=== PATIENT | male | born 1950 | race Hispanic/Latino ===

== ENCOUNTER 2018-02-08 16:12 | Emergency (ER) | payer OTHER ==
[2018-02-08 16:59] LABS: Absolute Lymphocytes (CBC) 0.8 K/uL (0.7-4.9); Absolute Monocytes 1.5 K/uL (0.1-1.3); Absolute Neutrophil 16.3 K/uL (1.8-8.0); Basophils % 0.3 % (0-1.3); Eosinophils % 0.8 % (0-4.4); Hematocrit 34.2 % (39.6-49.0); MCH 30.3 pg (27.0-35.0); MCV 92.3 fL (80-100); MPV 9.2 fL (7.6-11.3); Monocytes % 8.1 % (3.3-12.3); RBC Red Blood Cell Count 3.71 M/uL (4.33-5.43)
[2018-02-08 17:08] LABS: Potassium 3.3 mEq/L (3.6-5.0)
[2018-02-08] MEDS ORDERED: VANCOMYCIN/NS 1 gm 1 GM/250 ML BAG ONE (17:11)
[2018-02-08] MEDS ORDERED: NA CHLORIDE 0.9% 1,000 ML ONE ×2 (17:11→17:35)
[2018-02-08] MEDS ORDERED: Levofloxacin500mg IV 500 MG/100 ML BAG IV ONE (17:11)
[2018-02-08 17:44] LABS: Blood Morphology Comment NOT SEEN (NOT SEEN); Platelet Estimate ADEQ; Urine White Blood Cell Casts OK
--- NOTE | 2018-02-08 18:13 | ER ---
Nurse's Notes [facility] Name: Zack Godinez Age: 67 yrs Sex: Male : 1950 Arrival Date: 02/08/2018 Time: 16:13 Bed 8 Private MD: Diagnosis: Postoperative and postprocedural complication of skin and subcutaneous tissue Presentation: 02/08 16:18 Presenting complaint: Patient states: I had a hernia repair by Dr Franz at [facility] la1 01/28. I noticed bleeding from the incision site, a bad smell, and some clear looking drainage. Transition of care: patient was not received from another setting of care. Onset of symptoms was February 08, 2018. Care prior to arrival: None. 16:18 Method Of Arrival: Wheelchair la1 16:18 Acuity: COREY 3 la1 Historical: - Allergies: 16:19 Codeine; la1 - Home Meds: 19:48 glipizide-metformin 5-500 mg oral tab three times a day [Active]; benazepril 40 mg oral lp1 tab 1 tab once daily [Active]; furosemide 40 mg Oral tab 1 tab once daily [Active]; clopidogrel 75 mg oral tab 1 tab once daily [Active]; losartan 100 mg oral tab 1 tab once daily [Active]; verapamil 80 mg Oral tab 1 tab 3 times per day [Active]; - PMHx: 16:19 Diabetes - NIDDM; Hypertension; la1 - PSHx: 19:43 Hernia repair; back surgery; Cholecystectomy; Neck surgery; lp1 - Immunization history:: Adult Immunizations up to date. - Social history:: Smoking status: Patient/guardian denies using tobacco. Screenin:29 Abuse screen: Denies threats or abuse. Nutritional screening: No deficits noted. ap3 Tuberculosis screening: No symptoms or risk factors identified. 17:34 Fall Risk No fall in past 12 months (0 pts). No secondary diagnosis (0 pts). IV access ap3 (20 points). Ambulatory Aid- None/Bed Rest/Nurse Assist (0 pts). Gait- Normal/Bed Rest/Wheelchair (0 pts) Mental Status- Oriented to own ability (0 pts). Assessment: 17:29 General: Appears uncomfortable, Behavior is calm, cooperative. Pain: Complains of pain ap3 in right lower quadrant and left lower quadrant. Neuro: Level of Consciousness is awake, alert, obeys commands, Oriented to person, place, time, situation. Cardiovascular: Patient's skin is warm and dry. Respiratory: Airway is patent Respiratory effort is even, unlabored, Respiratory pattern is regular, symmetrical. GI: Abdomen is round distended, surgical wound along lower abdomen. : No signs and/or symptoms were reported regarding the genitourinary system. EENT: No signs and/or symptoms were reported regarding the EENT system. Derm: surgical wound along lower abdomen. Sanguinopurulent drainage noted from the left side of surgical wound. Musculoskeletal: Reports pain in right lower quadrant and left lower quadrant. Injury Description: surgery on January 28, 2018. 18:03 Reassessment: patient states that his mouth is dry. Oral care provided. ap3 19:15 Reassessment: Patient is alert, oriented x 3, equal unlabored respirations, skin lp1 warm/dry/pink. Reassessment: Patient denies pain at this time. Derm: Wound noted Wound is incision site to lower left abdomen, oozing pus-like fluid, redness, edema around site. 19:57 Reassessment: Report given to ARELY Ko at [facility], Patient assigned to Rm 502. lp1 Vital Signs: 16:19 BP 141 / 59; Pulse 100; Resp 16; Temp 100.1(TE); Pulse Ox 100% on R/A; Weight 96.16 kg; la1 Height 5 ft. 6 in. (167.64 cm) (R); 17:29 Temp 99.00; ap3 17:36 BP 126 / 65; Pulse 91; Resp 16 S; Pulse Ox 98% on R/A; ae1 18:09 BP 124 / 61; Pulse 88; Resp 15 S; Temp 98.1(O); ae1 19:00 BP 119 / 67; Pulse 81; Resp 18; Temp 98.2(O); Pulse Ox 99% on R/A; lp1 16:19 Body Mass Index 34.22 (96.16 kg, 167.64 cm) la1 ED Course: 16:13 Patient arrived in ED. as 16:19 Triage completed. la1 16:19 Arm band placed on left wrist. la1 16:21 Fam Gardner, ARELY is Primary Nurse. ae1 16:26 Pina Mark FNP-C is [facility]. snw 16:26 Dieudonne Leiva MD is Attending Physician. snw 16:45 Inserted saline lock: 20 gauge in left antecubital area, using aseptic technique. Blood ap3 collected. 16:50 EKG done, by ED staff, reviewed by Pina GARZA. jb1 16:53 Placed in gown. Bed in low position. Call light in reach. Side rails up X 1. Adult w/ ae1 patient. laboratory monitor on. Pulse ox on. NIBP on. blanket provided. 16:53 Inserted saline lock: 18 gauge in right antecubital area, using aseptic technique. ae1 Blood collected. 19:28 No provider procedures requiring assistance completed. lp1 20:38 Patient transferred, IV remains in place. lp1 Administered Medications: 17:00 Drug: NS 0.9% 1000 ml Route: IV; Rate: 1000 ml; Site: right antecubital; ae1 18:43 Follow up: IV Status: Completed infusion ae1 17:03 Drug: LevaQUIN 500 mg Volume: 100 ml; Route: IVPB; Infused Over: 60 mins; Site: right ae1 antecubital; 18:44 Follow up: IV Status: Completed infusion ae1 17:04 Drug: vancoMYCIN 1 grams Route: IVPB; Infused Over: 2 hrs; Site: right antecubital; ae1 19:29 Follow up: IV Status: Completed infusion lp1 17:25 Drug: NS 0.9% 1000 ml Route: IV; Rate: 1 bolus; Site: right antecubital; ae1 18:43 Follow up: IV Status: Completed infusion ae1 Point of Care Testing: Blood Glucose: 16:49 Blood Glucose: 239 mg/dL; ap3 Ranges: Outcome: 18:12 ER care complete, transfer ordered by . snw 19:27 Condition: stable lp1 19:27 Instructed on the need for transfer. 20:38 Transferred by ground EMS to other acute care facility, Transfer form completed. X-rays lp1 sent w/ patient. 20:39 Patient left the ED. lp1 Addendum: 02/12/2018 19:07 Addendum: Culture Results: Positive urine culture. Phone call Attempt #1 faxed culture i w report to [facility]. Signatures: Rodney Horn1 Pina Mark, [employer]C [employer]-Csnw Johanna Almonte Irene, RN RN iw Neelima Godoy, RN RN lp1 Uriel Parker RN RN la1 Fam Gardner RN RN ae1 Tabby Myers3
--- NOTE | 2018-02-08 18:13 | EDPHYS ---
Physician Documentation [facility] Name: Zack Godinez Age: 67 yrs Sex: Male : 1950 Arrival Date: 02/08/2018 Time: 16:13 Bed 8 Private MD: ED Physician Dieudonne Leiva HPI: 02/08 16:36 This 67 yrs old Male presents to ER via Wheelchair with complaints of Post snw Surgical Bleeding. 16:36 Onset: The symptoms/episode began/occurred suddenly, today. Associated signs and snw symptoms: Pertinent positives: foul odor and purulent dc from surgical site. Modifying factors: The patient symptoms are alleviated by nothing. The patient has not experienced similar symptoms in the past. appt for f/u 02/09/18. Historical: - Allergies: 16:19 Codeine; la1 - Home Meds: 19:48 glipizide-metformin 5-500 mg oral tab three times a day [Active]; benazepril 40 mg oral lp1 tab 1 tab once daily [Active]; furosemide 40 mg Oral tab 1 tab once daily [Active]; clopidogrel 75 mg oral tab 1 tab once daily [Active]; losartan 100 mg oral tab 1 tab once daily [Active]; verapamil 80 mg Oral tab 1 tab 3 times per day [Active]; - PMHx: 16:19 Diabetes - NIDDM; Hypertension; la1 - PSHx: 19:43 Hernia repair; back surgery; Cholecystectomy; Neck surgery; lp1 - Immunization history:: Adult Immunizations up to date. - Social history:: Smoking status: Patient/guardian denies using tobacco. ROS: 16:36 Constitutional: Negative for fever, chills, and weight loss, Eyes: Negative for injury, snw pain, redness, and discharge, ENT: Negative for injury, pain, and discharge, Neck: Negative for injury, pain, and swelling, Cardiovascular: Negative for chest pain, palpitations, and edema, Respiratory: Negative for shortness of breath, cough, wheezing, and pleuritic chest pain, Back: Negative for injury and pain, : Negative for injury, bleeding, discharge, and swelling, MS/Extremity: Negative for injury and deformity, Skin: Negative for injury, rash, and discoloration, Neuro: Negative for headache, weakness, numbness, tingling, and seizure. 16:36 Abdomen/GI: Positive for bleeding from surgical site. Exam: 16:35 Constitutional: This is a well developed, well nourished patient who is awake, alert, snw and in no acute distress. Head/Face: Normocephalic, atraumatic. Eyes: Pupils equal round and reactive to light, extra-ocular motions intact. Lids and lashes normal. Conjunctiva and sclera are non-icteric and not injected. Cornea within normal limits. Periorbital areas with no swelling, redness, or edema. ENT: Nares patent. No nasal discharge, no septal abnormalities noted. Tympanic membranes are normal and external auditory canals are clear. Oropharynx with no redness, swelling, or masses, exudates, or evidence of obstruction, uvula midline. Mucous membranes moist. Neck: Trachea midline, no thyromegaly or masses palpated, and no cervical lymphadenopathy. Supple, full range of motion without nuchal rigidity, or vertebral point tenderness. No Meningismus. Chest/axilla: Normal chest wall appearance and motion. Nontender with no deformity. No lesions are appreciated. 16:35 Respiratory: Lungs have equal breath sounds bilaterally, clear to auscultation and percussion. No rales, rhonchi or wheezes noted. No increased work of breathing, no retractions or nasal flaring. Back: No spinal tenderness. No costovertebral tenderness. Full range of motion. Skin: Warm, dry with normal turgor. Normal color with no rashes, no lesions, and no evidence of cellulitis. MS/ Extremity: Pulses equal, no cyanosis. Neurovascular intact. Full, normal range of motion. Neuro: Awake and alert, GCS 15, oriented to person, place, time, and situation. Cranial nerves II-XII grossly intact. Motor strength 5/5 in all extremities. Sensory grossly intact. Cerebellar exam normal. Normal gait. 16:35 Cardiovascular: Rate: tachycardic, Rhythm: regular. 16:35 Abdomen/GI: Inspection: scar(s), are noted in the transverse lower pelvis incison with erythema and purulent dc, Bowel sounds: diminished, Palpation: abdomen is soft and non-tender. Vital Signs: 16:19 BP 141 / 59; Pulse 100; Resp 16; Temp 100.1(TE); Pulse Ox 100% on R/A; Weight 96.16 kg; la1 Height 5 ft. 6 in. (167.64 cm) (R); 17:29 Temp 99.00; ap3 17:36 BP 126 / 65; Pulse 91; Resp 16 S; Pulse Ox 98% on R/A; ae1 18:09 BP 124 / 61; Pulse 88; Resp 15 S; Temp 98.1(O); ae1 19:00 BP 119 / 67; Pulse 81; Resp 18; Temp 98.2(O); Pulse Ox 99% on R/A; lp1 16:19 Body Mass Index 34.22 (96.16 kg, 167.64 cm) la1 MDM: 16:26 Patient medically screened. snw 18:01 Data reviewed: vital signs, nurses notes. Data interpreted: Pulse oximetry: on room air snw is 98 %. Interpretation: normal. Counseling: I had a detailed discussion with the patient and/or guardian regarding: the historical points, exam findings, and any diagnostic results supporting the discharge/admit diagnosis, lab results, the need to transfer to another facility, continuity of care. Physician consultation:. 18:03 Physician consultation: Dr Mohan was called at 18:03, regarding regarding transfer, snw post op infection. 18:09 Physician consultation: was contacted at 18:09, accepts pt in transfer to [facility]. snw 02/08 16:34 Order name: Basic Metabolic Panel; Complete Time: 17:14 snw 02/08 16:34 Order name: Blood Culture Adult (2) snw 02/08 16:34 Order name: CBC with Diff; Complete Time: 17:55 snw 02/08 16:34 Order name: CPK; Complete Time: 17:14 snw 02/08 16:34 Order name: Lactate; Complete Time: 17:14 snw 02/08 16:34 Order name: Procalcitonin; Complete Time: 17:55 snw 02/08 16:56 Order name: Wound Culture ae1 02/08 17:01 Order name: CBC Smear Scan; Complete Time: 17:55 EDMS 02/08 19:01 Order name: Urine Dipstick--Ancillary (enter results) ms 02/08 19:02 Order name: Urine Dipstick-Ancillary; Complete Time: 19:03 EDMS 02/08 16:34 Order name: Accucheck; Complete Time: 16:52 snw 02/08 16:34 Order name: Cardiac monitoring; Complete Time: 16:52 snw 02/08 16:34 Order name: EKG - Nurse/Tech; Complete Time: 16:52 snw 02/08 16:34 Order name: IV Saline Lock - Large Bore; Complete Time: 16:52 snw 02/08 16:34 Order name: Labs collected and sent; Complete Time: 16:52 snw 02/08 16:34 Order name: O2 Per Protocol; Complete Time: 16:52 snw 02/08 16:34 Order name: O2 Sat Monitoring; Complete Time: 16:53 snw 02/08 16:34 Order name: Urine Dipstick-Ancillary (obtain specimen); Complete Time: 18:43 snw 02/08 16:34 Order name: NPO; Complete Time: 16:44 snw Administered Medications: 17:00 Drug: NS 0.9% 1000 ml Route: IV; Rate: 1000 ml; Site: right antecubital; ae1 18:43 Follow up: IV Status: Completed infusion ae1 17:03 Drug: LevaQUIN 500 mg Volume: 100 ml; Route: IVPB; Infused Over: 60 mins; Site: right ae1 antecubital; 18:44 Follow up: IV Status: Completed infusion ae1 17:04 Drug: vancoMYCIN 1 grams Route: IVPB; Infused Over: 2 hrs; Site: right antecubital; ae1 19:29 Follow up: IV Status: Completed infusion lp1 17:25 Drug: NS 0.9% 1000 ml Route: IV; Rate: 1 bolus; Site: right antecubital; ae1 18:43 Follow up: IV Status: Completed infusion ae1 Point of Care Testing: Blood Glucose: 16:49 Blood Glucose: 239 mg/dL; ap3 Ranges: Critical Glucose Levels:Adult <50 mg/dl or >400 mg/dl <40 mg/dl or >180 mg/dl Disposition: 02/08/18 18:12 Transfer ordered to Other Acute Care Facility. Diagnosis is Postoperative and postprocedural complication of skin and subcutaneous tissue. - Reason for transfer: Higher level of care. - Accepting physician is Dr. Kuo. - Condition is Stable. - Problem is new. - Symptoms have worsened. Addendum: 03/14/2018 19:41 Co-signature as Attending Physician, Dieudonne Leiva MD I agree with the assessment and k dr plan of care. Signatures: Dispatcher [employer] EDDE Dieudonne Leiva MD MD [facility] Pina Mark, SENIOR CLERK-C SENIOR CLERK-Csnw Neelima Godoy, RN RN lp1 Uriel Parker, RN RN la1 Fam Gardner, RN RN ae1 Corrections: (The following items were deleted from the chart) 02/08 20:39 18:12 02/08/2018 18:12 Transfer ordered to Other Acute Care Facility. Diagnosis is lp1 Postoperative and postprocedural complication of skin and subcutaneous tissue. Reason for transfer: Higher level of care. Accepting physician is Dr. Kuo. Condition is Stable. Problem is new. Symptoms have worsened. snw
[2018-02-08 19:02] LABS: Urine Blood NEGATIVE (NEG); Urine Glucose NEGATIVE (NEG); Urine Protein NEGATIVE (NEG)
[2018-02-08 20:55] VITALS: BP 119/67; TEMP 98.2; O2SAT 99
--- NOTE | 2018-02-09 08:49 | EKG ---
Test Date: 2018-02-08 Test Time: 16:45:29 Turbine Inspector: LIZETTE MEASUREMENT RESULTS: Intervals: Rate: 96 TN: 158 QRSD: 94 QT: 350 QTc: 442 [place]: P: 10 TN: 158 QRS: 29 T: 41 INTERPRETIVE STATEMENTS: Normal sinus rhythm Normal ECG Compared to ECG 12/11/2016 04:07:49 No significant changes Electronically Signed On 02-09-18 08:48:28 CDT by Kyler Kenny
== END 2018-02-08 20:39 ==
LOC: ER 16:12
DX: L76.82 Other postprocedural complications of skin and subcutaneous tissue (principal); I10 Essential (primary) hypertension; E11.9 Type 2 diabetes mellitus without complications; Z88.5 Allergy status to narcotic agent
CPT/HCPCS: 36415; 80048; 81003; 82550; 82962; 83605; 84145; 85025; 87040 ×2; 87070; 87077 ×2; 87186 ×2; 87205; 93005; 96361; 96365; 96366; 96368; 99285; J3370; J7030 ×2

== ENCOUNTER 2019-10-06 18:10 | Emergency (ER) | payer OTHER ==
--- OUTSIDE RECORDS SUMMARY | 2019-10-06 18:13 | XMS REPORT ---
:1950 [facility] [address] [place] [address] Care Team Providers Name Role Phone CHRIS AMADOR Primary Care Provider Unavailable ALEXANDRA BELL M.D. Unavailable Unavailable MATT LUONG M.D. Unavailable Unavailable Problems This patient has no known problems. Allergies, Adverse Reactions, Alerts This patient has no known allergies or adverse reactions. Medications This patient has no known medications. Results Test Description Test Time Test Comments Text Results Atomic Results Result Comments POC Glucose, Blood 2018-02-16 19:18:00 Test Item Value Reference Range Comments POC Glucose (test code=POCGLUC) 119 mg/dL 70-115 If you consider your patient critically ill, the [facility] Accu-Chek InformII metershould not be used for Glucose determinations.Draw a venous Glucose and send to the Main Lab for Analysis. POC Glucose, [id number] 16:20:00 Test Item Value Reference Range Comments POC Glucose (test 129 mg/dL 70-115 If you consider your patient code=POCGLUC) critically ill, the [facility] Accu-Chek InformII metershould not be used for Glucose determinations.Draw a venous Glucose and send to the Main Lab for Analysis. POC Glucose, [id number] 11:34:00 Test Item Value Reference Range Comments POC Glucose (test 93 mg/dL 70-115 If you consider your patient code=POCGLUC) critically ill, the [place] Accu-Chek InformII metershould not be used for Glucose determinations.Draw a venous Glucose and send to the Main Lab for Analysis. POC Glucose, [id number] 11:34:00 Test Item Value Reference Range Comments POC Glucose (test 162 mg/dL 70-115 If you consider your patient code=POCGLUC) critically ill, the [facility] Accu-Chek InformII metershould not be used for Glucose determinations.Draw a venous Glucose and send to the Main Lab for Analysis. POC Glucose, [id number] 07:48:00 Test Item Value Reference Range Comments POC Glucose (test 106 mg/dL 70-115 If you consider your patient code=POCGLUC) critically ill, the [place] Accu-Chek InformII metershould not be used for Glucose determinations.Draw a venous Glucose and send to the Main Lab for Analysis. POC Glucose, [id number] 05:53:00 Test Item Value Reference Range Comments POC Glucose (test 114 mg/dL 70-115 If you consider your patient code=POCGLUC) critically ill, the [facility] Accu-Chek InformII metershould not be used for Glucose determinations.Draw a venous Glucose and send to the Main Lab for Analysis. POC Glucose, [id number] 20:20:00 Test Item Value Reference Range Comments POC Glucose (test 123 mg/dL 70-115 Notify RN or MDIf you consider code=POCGLUC) your patient critically ill, the [facility] Accu-Chek InformII metershould not be used for Glucose determinations.Draw a venous Glucose and send to the Main Lab for Analysis. POC Glucose, [id number] 15:37:00 Test Item Value Reference Range Comments POC Glucose (test 102 mg/dL 70-115 If you consider your patient code=POCGLUC) critically ill, the [facility] Accu-Chek InformII metershould not be used for Glucose determinations.Draw a venous Glucose and send to the Main Lab for Analysis. POC Glucose, [id number] 11:41:00 Test Item Value Reference Range Comments POC Glucose (test 213 mg/dL 70-115 Notify RN or MDIf you consider code=POCGLUC) your patient critically ill, the [facility] Accu-Chek InformII metershould not be used for Glucose determinations.Draw a venous Glucose and send to the Main Lab for Analysis. POC Glucose, [id number] 07:35:00 Test Item Value Reference Range Comments POC Glucose (test 125 mg/dL 70-115 If you consider your patient code=POCGLUC) critically ill, the [facility] Accu-Chek InformII metershould not be used for Glucose determinations.Draw a venous Glucose and send to the Main Lab for Analysis. Basic Metabolic [id number] 05:52:00 Test Item Value Reference Range Comments Sodium (test code=NA) 137 mmol/L 135-145 Potassium (test code=K) 3.9 mmol/L 3.5-5.1 Chloride (test code=CL) 100 mmol/L 98-105 Carbon Dioxide (test 25 mmol/L 22-29 code=CO2) Glucose (test code=GLU) 129 mg/dL 70-115 Blood Urea Nitrogen 14 mg/dL 8-23 (test code=BUN) Creatinine (test 1.0 mg/dL 0.7-1.2 code=CREAT) Calcium (test code=CA) 8.5 mg/dL 8.3-10.5 BUN/Creatinine Ratio 14.0 (test code=BCRATIO) Anion Gap (test 12 mmol/L 7-16 code=AGAP) Estimated GFR (test >60 mL/min/1.73m2 eGFR (estimated Glomerular code=GFR) Filtration Rate) is an estimated value,calculated from the patient's serum creatinine using the MDRD equation.It is NOT the patient's actual GFR. The eGFR provides a more clinicallyuseful measure of kidney disease than serum creatinine alone.This calculation takes sex and race into account, if the informationis provided. If the race is not provided, and the patient isAfrican-Polish, multiply by 1.212. If sex is not provided, and thepatient is female, multiply by 0.742. Results for patients <18 years ofage have not been validated by the MDRD study and should be interpretedwith caution.eGFR Result Interpretation:eGFR > or=60 is in the Normal RangeeGFR < 60 may mean kidney diseaseeGFR < 15 may mean kidney failureRanges recommended by the National Kidney Foundation,http://nkdep.nih .gov POC Glucose, [id number] 20:10:00 Test Item Value Reference Range Comments POC Glucose (test 117 mg/dL 70-115 If you consider your patient code=POCGLUC) critically ill, the [facility] Accu-Chek InformII metershould not be used for Glucose determinations.Draw a venous Glucose and send to the Main Lab for Analysis. POC Glucose, [id number] 16:18:00 Test Item Value Reference Range Comments POC Glucose (test 69 mg/dL 70-115 If you consider your patient code=POCGLUC) critically ill, the [facility] Accu-Chek InformII metershould not be used for Glucose determinations.Draw a venous Glucose and send to the Main Lab for Analysis. POC Glucose, [id number] 12:05:00 Test Item Value Reference Range Comments POC Glucose (test 208 mg/dL 70-115 Notify RN or MDIf you consider code=POCGLUC) your patient critically ill, the [facility] Accu-Chek InformII metershould not be used for Glucose determinations.Draw a venous Glucose and send to the Main Lab for Analysis. Vancomycin, [id number] 10:13:00 Test Item Value Reference Range Comments Stephy Ordaz (test code=VANTR) 16.9 ug/mL 10.0-20.0 Culture, Blood [id number] 08:34:00Specimen: BloodCollected: 02/08/2018 23 :30 Status: Final Last Updated: 02/14/2018 08:34 Culture Result (Final) ( Final) No Growth After 5 DaysPOC Glucose, [id number] 06:43:00 Test Item Value Reference Range Comments POC Glucose (test 161 mg/dL 70-115 If you consider your patient code=POCGLUC) critically ill, the [facility] Accu-Chek InformII metershould not be used for Glucose determinations.Draw a venous Glucose and send to the Main Lab for Analysis. [id number] 06:05:00 Test Item Value Reference Range Comments Albumin (test code=ALB) 3.3 g/dL 3.5-5.2 POC Glucose, [id number] 18:44:00 Test Item Value Reference Range Comments POC Glucose (test 220 mg/dL 70-115 If you consider your patient code=POCGLUC) critically ill, the [facility] Accu-Chek InformII metershould not be used for Glucose determinations.Draw a venous Glucose and send to the Main Lab for Analysis. POC Glucose, [id number] 16:25:00 Test Item Value Reference Range Comments POC Glucose (test 163 mg/dL 70-115 If you consider your patient code=POCGLUC) critically ill, the [facility] Accu-Chek InformII metershould not be used for Glucose determinations.Draw a venous Glucose and send to the Main Lab for Analysis. XR CHEST 1 [id number] 14:59:07CHEST 1 VIEWCLINICAL INFORMATION: piccCOMPARISON: January 23, 2018FINDINGS:The tip of the right arm PICC projects over the superior cavoatrialjunction. The lungs are well-expanded and clear. The heartsize isnormal. The bones are intact.IMPRESSION:No acute cardiopulmonary finding.LOCATION: [id number] Glucose, [id number] 11:32:00 Test Item Value Reference Range Comments POC Glucose (test 156 mg/dL 70-115 If you consider your patient code=POCGLUC) critically ill, the [facility] Accu-Chek InformII metershould not be used for Glucose determinations.Draw a venous Glucose and send to the Main Lab for Analysis. Culture, Wound [id number] 09:51:00Specimen: GroinCollected: 2017 15:00 Status: Final Last Updated: 02/13/2018 09:51 Gram Stain (Final) (Final) 02/10/18 Moderate Gram negative rods , Few WBC'S Culture Result ( Final) (Final) 02/13/18 Anaerobic culture:No anaerobes isolated at 3 days Isolate (Final) (Final) 02/11/18 Few Escherichia coli Amikacin <=16 Susceptible Ampicillin >16 Resistant Ampicillin/ Sulb >16/8 Resistant Cefazolin <=8 Susceptible Cefepime <=4 Susceptible Cefotaxime <=2 Susceptible Ceftazidime <=1 Susceptible Ceftriaxone <=1 Susceptible Cefuroxime <=4 Susceptible Ciprofloxacin <=1 Susceptible Gentamicin <=4 Susceptible Imipenem <=1 SusceptibleLevofloxacin <=2 Susceptible Meropenem <=1 Susceptible Piperacillin/Tazo <=16 Susceptible Tobramycin <=4 Susceptible Trimethoprim/Sulfa <=2/38 Susceptible Isolate (Final) ( Final) 02/11/18 Few Group D Enterococcus Isolate Group D Enterococcus CAYETANO (mcg/ml) Ampicillin (AM) <=2 Susceptible Gentamicin Syn (HLG) >500 Resistant Linezolid (LNZ) 2 Susceptible Penicillin (P)0.5 Susceptible Streptomycin Syn (HLS)<=1000 Susceptible Vancomycin ( VA) 2SusceptiblePOC Glucose, [id number] 07:47:00 Test Item Value Reference Range Comments POC Glucose (test 132 mg/dL 70-115 If you consider your patient code=POCGLUC) critically ill, the [facility] Accu-Chek InformII metershould not be used for Glucose determinations.Draw a venous Glucose and send to the Main Lab for Analysis. CBC with [id number] 07:12:00 Test Item Value Reference Range Comments WBC (test code=WBC) 8.0 K/cumm 4.4-10.5 RBC (test code=RBC) 3.17 M/cumm 4.10-5.70 Hemoglobin (test code=HGB) 9.6 gm/dL 13.4-17.4 Hematocrit (test code=HCT) 29.7 % 38.7-52.0 MCV (test code=MCV) 93.8 fL 80-100 MCH (test code=MCH) 30.3 pg 27.0-32.5 MCHC (test code=MCHC) 32.3 g/dL 32.0-37.5 RDW (test code=RDW) 12.5 % 11.5-14.5 Platelet Count (test code=PLTCT) 383 K/cumm 140-440 MPV (test code=MPV) 9.9 fL Diff Method (test code=DIFFM) Auto Neutrophil (test code=NEUT) 72.7 % 36-70 Lymphocyte (test code=LYMPH) 13.4 % 12-44 Monocyte (test code=MONO) 8.1 % 0-11 Eosinophil (test code=EOS) 5.3 % 0-7 Basophil (test code=BASO) 0.5 % 0-2 Neutro Abs (test code=ANEUT) 5.8 K/cumm 1.6-7.4 Lymph Abs (test code=ALYMPH) 1.1 K/cumm 0.5-4.6 [place] Abs (test code=AMONO) 0.7 K/cumm 0.0-1.2 Eos Abs (test code=AEOS) 0.42 K/cumm 0.00-0.74 Baso Abs (test code=ABASO) 0.0 K/cumm 0.00-0.21 POC Glucose, [id number] 18:59:00 Test Item Value Reference Range Comments POC Glucose (test 168 mg/dL 70-115 If you consider your patient code=POCGLUC) critically ill, the [facility] Accu-Chek InformII metershould not be used for Glucose determinations.Draw a venous Glucose and send to the Main Lab for Analysis. POC Glucose, [id number] 16:07:00 Test Item Value Reference Range Comments POC Glucose (test 88 mg/dL 70-115 If you consider your patient code=POCGLUC) critically ill, the [facility] Accu-Chek InformII metershould not be used for Glucose determinations.Draw a venous Glucose and send to the Main Lab for Analysis. POC Glucose, [id number] 11:32:00 Test Item Value Reference Range Comments POC Glucose (test 158 mg/dL 70-115 If you consider your patient code=POCGLUC) critically ill, the [facility] Accu-Chek InformII metershould not be used for Glucose determinations.Draw a venous Glucose and send to the Main Lab for Analysis. Culture, Wound [id number] 09:58:00Specimen: AbdomenCollected: 2017 23:02 Status: Final Last Updated: 02/12/2018 09:58 Gram Stain (Final ) (Final) 02/10/18 No organsims seen, No WBC's seen Culture Result (Final) ( Final) 02/11/18 Few Staph-coag negative 02/12/18 Multiple organisms present, no further workup in progress 02/12/18 Anaerobic culture:No anaerobes isolated at 3 days Isolate (Final) (Final) 02/10/18 Few Escherichia coli Amikacin <=16 Susceptible Ampicillin >16 Resistant Ampicillin/Sulb 16/8 Intermediate Cefazolin <=8Susceptible Cefepime <=4 Susceptible Cefotaxime <=2 Susceptible Ceftazidime <=1 Susceptible Ceftriaxone <=1 Susceptible Cefuroxime 16 Intermediate Ciprofloxacin <=1 SusceptibleGentamicin <=4 Susceptible Imipenem & lt;=1 Susceptible Levofloxacin <=2 Susceptible Meropenem <=1 Susceptible Piperacillin/Tazo <=16 Susceptible Tobramycin <=4 Susceptible Trimethoprim/ Sulfa <=2/38 Susceptible Isolate (Final) (Final) 02/10/18 Moderate Group D Enterococcus Isolate Group D Enterococcus CAYETANO (mcg/ml) Ampicillin (AM) <=2 Susceptible Gentamicin Syn (HLG) >500 Resistant Linezolid (LNZ) 2 Susceptible Penicillin (P)0.5 Susceptible Streptomycin Syn (HLS)<=1000 Susceptible Vancomycin (VA) 4SusceptiblePOC Glucose, [id number] 07:58:00 Test Item Value Reference Range Comments POC Glucose (test 142 mg/dL 70-115 If you consider your patient code=POCGLUC) critically ill, the [facility] Accu-Chek InformII metershould not be used for Glucose determinations.Draw a venous Glucose and send to the Main Lab for Analysis. POC Glucose, [id number] 06:11:00 Test Item Value Reference Range Comments POC Glucose (test 152 mg/dL 70-115 If you consider your patient code=POCGLUC) critically ill, the [facility] Accu-Chek InformII metershould not be used for Glucose determinations.Draw a venous Glucose and send to the Main Lab for Analysis. CBC with [id number] 06:01:00 Test Item Value Reference Range Comments WBC (test code=WBC) 7.4 K/cumm 4.4-10.5 RBC (test code=RBC) 3.43 M/cumm 4.10-5.70 Hemoglobin (test code=HGB) 10.5 gm/dL 13.4-17.4 Hematocrit (test code=HCT) 32.5 % 38.7-52.0 MCV (test code=MCV) 94.7 fL 80-100 MCH (test code=MCH) 30.6 pg 27.0-32.5 MCHC (test code=MCHC) 32.3 g/dL 32.0-37.5 RDW (test code=RDW) 12.1 % 11.5-14.5 Platelet Count (test code=PLTCT) 365 K/cumm 140-440 MPV (test code=MPV) 10.0 fL Diff Method (test code=DIFFM) Auto Neutrophil (test code=NEUT) 67.7 % 36-70 Lymphocyte (test code=LYMPH) 15.8 % 12-44 Monocyte (test code=MONO) 8.3 % 0-11 Eosinophil (test code=EOS) 7.3 % 0-7 Basophil (test code=BASO) 0.8 % 0-2 Neutro Abs (test code=ANEUT) 5.0 K/cumm 1.6-7.4 Lymph Abs (test code=ALYMPH) 1.2 K/cumm 0.5-4.6 [place] Abs (test code=AMONO) 0.6 K/cumm 0.0-1.2 Eos Abs (test code=AEOS) 0.54 K/cumm 0.00-0.74 Baso Abs (test code=ABASO) 0.1 K/cumm 0.00-0.21 Basic Metabolic [id number] 05:55:00 Test Item Value Reference Range Comments Sodium (test code=NA) 139 mmol/L 135-145 Potassium (test code=K) 4.6 mmol/L 3.5-5.1 Chloride (test code=CL) 104 mmol/L 98-105 Carbon Dioxide (test 24 mmol/L 22-29 code=CO2) Glucose (test code=GLU) 148 mg/dL 70-115 Blood Urea Nitrogen 13 mg/dL 8-23 (test code=BUN) Creatinine (test 1.1 mg/dL 0.7-1.2 code=CREAT) Calcium (test code=CA) 8.6 mg/dL 8.3-10.5 BUN/Creatinine Ratio 11.8 (test code=BCRATIO) Anion Gap (test 11 mmol/L 7-16 code=AGAP) Estimated GFR (test >60 mL/min/1.73m2 eGFR (estimated Glomerular code=GFR) Filtration Rate) is an estimated value,calculated from the patient's serum creatinine using the MDRD equation.It is NOT the patient's actual GFR. The eGFR provides a more clinicallyuseful measure of kidney disease than serum creatinine alone.This calculation takes sex and race into account, if the informationis provided. If the race is not provided, and the patient isAfrican-[place]ish, multiply by 1.212. If sex is not provided, and thepatient is female, multiply by 0.742. Results for patients <18 years ofage have not been validated by the MDRD study and should be interpretedwith caution.eGFR Result Interpretation:eGFR > or=60 is in the Normal RangeeGFR < 60 may mean kidney diseaseeGFR < 15 may mean kidney failureRanges recommended by the National Kidney Foundation,http://nkdep.nih .gov POC Glucose, [id number] 00:53:00 Test Item Value Reference Range Comments POC Glucose (test 146 mg/dL 70-115 If you consider your patient code=POCGLUC) critically ill, the [facility] Accu-Chek InformII metershould not be used for Glucose determinations.Draw a venous Glucose and send to the Main Lab for Analysis. POC Glucose, [id number] 21:21:00 Test Item Value Reference Range Comments POC Glucose (test 209 mg/dL 70-115 If you consider your patient code=POCGLUC) critically ill, the [place] Accu-Chek InformII metershould not be used for Glucose determinations.Draw a venous Glucose and send to the Main Lab for Analysis. POC Glucose, [id number] 16:34:00 Test Item Value Reference Range Comments POC Glucose (test 199 mg/dL 70-115 If you consider your patient code=POCGLUC) critically ill, the [facility] Accu-Chek InformII metershould not be used for Glucose determinations.Draw a venous Glucose and send to the Main Lab for Analysis. POC Glucose, [id number] 11:54:00 Test Item Value Reference Range Comments POC Glucose (test 190 mg/dL 70-115 If you consider your patient code=POCGLUC) critically ill, the [place] Accu-Chek InformII metershould not be used for Glucose determinations.Draw a venous Glucose and send to the Main Lab for Analysis. POC Glucose, [id number] 07:44:00 Test Item Value Reference Range Comments POC Glucose (test 217 mg/dL 70-115 Notify RN or MDIf you consider code=POCGLUC) your patient critically ill, the [facility] Accu-Chek InformII metershould not be used for Glucose determinations.Draw a venous Glucose and send to the Main Lab for Analysis. Basic Metabolic [id number] 07:23:00 Test Item Value Reference Range Comments Sodium (test code=NA) 139 mmol/L 135-145 Potassium (test code=K) 4.7 mmol/L 3.5-5.1 Chloride (test code=CL) 104 mmol/L 98-105 Carbon Dioxide (test 24 mmol/L 22-29 code=CO2) Glucose (test code=GLU) 124 mg/dL 70-115 Blood Urea Nitrogen 11 mg/dL 8-23 (test code=BUN) Creatinine (test 1.0 mg/dL 0.7-1.2 code=CREAT) Calcium (test code=CA) 8.2 mg/dL 8.3-10.5 BUN/Creatinine Ratio 11.0 (test code=BCRATIO) Anion Gap (test 11 mmol/L 7-16 code=AGAP) Estimated GFR (test >60 mL/min/1.73m2 eGFR (estimated Glomerular code=GFR) Filtration Rate) is an estimated value,calculated from the patient's serum creatinine using the MDRD equation.It is NOT the patient's actual GFR. The eGFR provides a more clinicallyuseful measure of kidney disease than serum creatinine alone.This calculation takes sex and race into account, if the informationis provided. If the race is not provided, and the patient isAfrican-Polish, multiply by 1.212. If sex is not provided, and thepatient is female, multiply by 0.742. Results for patients <18 years ofage have not been validated by the MDRD study and should be interpretedwith caution.eGFR Result Interpretation:eGFR > or=60 is in the Normal RangeeGFR < 60 may mean kidney diseaseeGFR < 15 may mean kidney failureRanges recommended by the National Kidney Foundation,http://nkdep.nih .gov CBC with [id number] 06:49:00 Test Item Value Reference Range Comments WBC (test code=WBC) 7.2 K/cumm 4.4-10.5 RBC (test code=RBC) 3.37 M/cumm 4.10-5.70 Hemoglobin (test code=HGB) 10.3 gm/dL 13.4-17.4 Hematocrit (test code=HCT) 31.0 % 38.7-52.0 MCV (test code=MCV) 92.1 fL 80-100 MCH (test code=MCH) 30.5 pg 27.0-32.5 MCHC (test code=MCHC) 33.1 g/dL 32.0-37.5 RDW (test code=RDW) 12.0 % 11.5-14.5 Platelet Count (test code=PLTCT) 302 K/cumm 140-440 MPV (test code=MPV) 7.4 fL Diff Method (test code=DIFFM) Auto Neutrophil (test code=NEUT) 74.4 % 36-70 Lymphocyte (test code=LYMPH) 12.1 % 12-44 Monocyte (test code=MONO) 6.9 % 0-11 Eosinophil (test code=EOS) 5.9 % 0-7 Basophil (test code=BASO) 0.7 % 0-2 Neutro Abs (test code=ANEUT) 5.4 K/cumm 1.6-7.4 Lymph Abs (test code=ALYMPH) 0.9 K/cumm 0.5-4.6 [place] Abs (test code=AMONO) 0.5 K/cumm 0.0-1.2 Eos Abs (test code=AEOS) 0.42 K/cumm 0.00-0.74 Baso Abs (test code=ABASO) 0.1 K/cumm 0.00-0.21 POC Glucose, [id number] 21:12:00 Test Item Value Reference Range Comments POC Glucose (test 209 mg/dL 70-115 If you consider your patient code=POCGLUC) critically ill, the [facility] Accu-Chek InformII metershould not be used for Glucose determinations.Draw a venous Glucose and send to the Main Lab for Analysis. POC Glucose, [id number] 16:02:00 Test Item Value Reference Range Comments POC Glucose (test 138 mg/dL 70-115 Notify RN or MDIf you consider code=POCGLUC) your patient critically ill, the [facility] Accu-Chek InformII metershould not be used for Glucose determinations.Draw a venous Glucose and send to the Main Lab for Analysis. Basic Metabolic [id number] 08:50:00 Test Item Value Reference Range Comments Sodium (test code=NA) 138 mmol/L 135-145 Potassium (test code=K) 4.5 mmol/L 3.5-5.1 Chloride (test code=CL) 102 mmol/L 98-105 Carbon Dioxide (test 23 mmol/L 22-29 code=CO2) Glucose (test code=GLU) 167 mg/dL 70-115 Blood Urea Nitrogen 14 mg/dL 8-23 (test code=BUN) Creatinine (test 1.1 mg/dL 0.7-1.2 code=CREAT) Calcium (test code=CA) 8.2 mg/dL 8.3-10.5 BUN/Creatinine Ratio 12.7 (test code=BCRATIO) Anion Gap (test 13 mmol/L 7-16 code=AGAP) Estimated GFR (test >60 mL/min/1.73m2 eGFR (estimated Glomerular code=GFR) Filtration Rate) is an estimated value,calculated from the patient's serum creatinine using the MDRD equation.It is NOT the patient's actual GFR. The eGFR provides a more clinicallyuseful measure of kidney disease than serum creatinine alone.This calculation takes sex and race into account, if the informationis provided. If the race is not provided, and the patient isAfrican-Polish, multiply by 1.212. If sex is not provided, and thepatient is female, multiply by 0.742. Results for patients <18 years ofage have not been validated by the MDRD study and should be interpretedwith caution.eGFR Result Interpretation:eGFR > or=60 is in the Normal RangeeGFR < 60 may mean kidney diseaseeGFR < 15 may mean kidney failureRanges recommended by the National Kidney Foundation,http://nkdep.nih .gov CBC with [id number] 08:10:00 Test Item Value Reference Range Comments WBC (test code=WBC) 9.2 K/cumm 4.4-10.5 RBC (test code=RBC) 3.38 M/cumm 4.10-5.70 Hemoglobin (test code=HGB) 10.3 gm/dL 13.4-17.4 VERIFIED BY REPEAT TESTINGREAD BACK LAB VALUESCALLED TO Raimundo KEENE RN @0809 ON 02/10/2018NO INFO WAS GIVENFS Hematocrit (test code=HCT) 31.5 % 38.7-52.0 MCV (test code=MCV) 93.3 fL 80-100 MCH (test code=MCH) 30.4 pg 27.0-32.5 MCHC (test code=MCHC) 32.6 g/dL 32.0-37.5 RDW (test code=RDW) 12.4 % 11.5-14.5 Platelet Count (test 305 K/cumm 140-440 code=PLTCT) MPV (test code=MPV) 10.0 fL Diff Method (test Auto code=DIFFM) Neutrophil (test code=NEUT) 74.8 % 36-70 Lymphocyte (test code=LYMPH) 11.7 % 12-44 Monocyte (test code=MONO) 8.2 % 0-11 Eosinophil (test code=EOS) 4.8 % 0-7 Basophil (test code=BASO) 0.5 % 0-2 Neutro Abs (test code=ANEUT) 6.9 K/cumm 1.6-7.4 Lymph Abs (test code=ALYMPH) 1.1 K/cumm 0.5-4.6 [place] Abs (test code=AMONO) 0.8 K/cumm 0.0-1.2 Eos Abs (test code=AEOS) 0.44 K/cumm 0.00-0.74 Baso Abs (test code=ABASO) 0.0 K/cumm 0.00-0.21 POC Glucose, [id number] 07:24:00 Test Item Value Reference Range Comments POC Glucose (test 153 mg/dL 70-115 Notify RN or MDIf you consider code=POCGLUC) your patient critically ill, the [place] Accu-Chek InformII metershould not be used for Glucose determinations.Draw a venous Glucose and send to the Main Lab for Analysis. POC Glucose, [id number] 20:54:00 Test Item Value Reference Range Comments POC Glucose (test 183 mg/dL 70-115 If you consider your patient code=POCGLUC) critically ill, the [place] Accu-Chek InformII metershould not be used for Glucose determinations.Draw a venous Glucose and send to the Main Lab for Analysis. POC Glucose, [id number] 16:40:00 Test Item Value Reference Range Comments POC Glucose (test 156 mg/dL 70-115 Notify RN or MDIf you consider code=POCGLUC) your patient critically ill, the [place] Accu-Chek InformII metershould not be used for Glucose determinations.Draw a venous Glucose and send to the Main Lab for Analysis. POC Glucose, [id number] 11:18:00 Test Item Value Reference Range Comments POC Glucose (test 249 mg/dL 70-115 Notify RN or MDIf you consider code=POCGLUC) your patient critically ill, the [place] Accu-Chek InformII metershould not be used for Glucose determinations.Draw a venous Glucose and send to the Main Lab for Analysis. CBC with [id number] 07:45:00 Test Item Value Reference Range Comments WBC (test code=WBC) 15.2 K/cumm 4.4-10.5 RBC (test code=RBC) 3.22 M/cumm 4.10-5.70 Hemoglobin (test code=HGB) 8.3 gm/dL 13.4-17.4 Hematocrit (test code=HCT) 30.5 % 38.7-52.0 MCV (test code=MCV) 94.7 fL 80-100 MCH (test code=MCH) 25.8 pg 27.0-32.5 MCHC (test code=MCHC) 27.3 g/dL 32.0-37.5 RDW (test code=RDW) 12.1 % 11.5-14.5 Platelet Count (test code=PLTCT) 257 K/cumm 140-440 MPV (test code=MPV) 10.1 fL Diff Method (test code=DIFFM) Auto Neutrophil (test code=NEUT) 84.0 % 36-70 Lymphocyte (test code=LYMPH) 6.4 % 12-44 Monocyte (test code=MONO) 7.5 % 0-11 Eosinophil (test code=EOS) 1.9 % 0-7 Basophil (test code=BASO) 0.3 % 0-2 Neutro Abs (test code=ANEUT) 12.8 K/cumm 1.6-7.4 Lymph Abs (test code=ALYMPH) 1.0 K/cumm 0.5-4.6 [place] Abs (test code=AMONO) 1.1 K/cumm 0.0-1.2 Eos Abs (test code=AEOS) 0.28 K/cumm 0.00-0.74 Baso Abs (test code=ABASO) 0.0 K/cumm 0.00-0.21 [id number] 07:17:00 Test Item Value Reference Range Comments Phosphorus (test code=PO4) 2.4 mg/dL 2.70-4.50 Magnesium, [id number] 07:17:00 Test Item Value Reference Range Comments Magnesium (test code=MG) 2.0 mg/dL 1.7-2.5 Basic Metabolic [id number] 07:17:00 Test Item Value Reference Range Comments Sodium (test code=NA) 138 mmol/L 135-145 Potassium (test code=K) 4.2 mmol/L 3.5-5.1 Chloride (test code=CL) 103 mmol/L 98-105 Carbon Dioxide (test 23 mmol/L 22-29 code=CO2) Glucose (test code=GLU) 155 mg/dL 70-115 Blood Urea Nitrogen 14 mg/dL 8-23 (test code=BUN) Creatinine (test 1.0 mg/dL 0.7-1.2 code=CREAT) Calcium (test code=CA) 7.8 mg/dL 8.3-10.5 BUN/Creatinine Ratio 14.0 (test code=BCRATIO) Anion Gap (test 12 mmol/L 7-16 code=AGAP) Estimated GFR (test >60 mL/min/1.73m2 eGFR (estimated Glomerular code=GFR) Filtration Rate) is an estimated value,calculated from the patient's serum creatinine using the MDRD equation.It is NOT the patient's actual GFR. The eGFR provides a more clinicallyuseful measure of kidney disease than serum creatinine alone.This calculation takes sex and race into account, if the informationis provided. If the race is not provided, and the patient isAfrican-Polish, multiply by 1.212. If sex is not provided, and thepatient is female, multiply by 0.742. Results for patients <18 years ofage have not been validated by the MDRD study and should be interpretedwith caution.eGFR Result Interpretation:eGFR > or=60 is in the Normal RangeeGFR < 60 may mean kidney diseaseeGFR < 15 may mean kidney failureRanges recommended by the National Kidney Foundation,http://nkdep.nih .gov Vancomycin, [id number] 07:16:00 Test Item Value Reference Range Comments Stephy Ordaz (test code=VANTR) 4.8 ug/mL 10.0-20.0 POC Glucose, [id number] 06:59:00 Test Item Value Reference Range Comments POC Glucose (test 181 mg/dL 70-115 If you consider your patient code=POCGLUC) critically ill, the [place] Accu-Chek InformII metershould not be used for Glucose determinations.Draw a venous Glucose and send to the Main Lab for Analysis. [id number] 01:58:35AFTER HOURS SERVICE ON: 02/09/2018 1 :58 AMCT Scan of the Abdomen and Pelvis With ContrastLocation [id number]: Abdominal wound infectionTechnique: Axial and reconstructed [facility]. One or more of the following dose reduction techniques were used:Automated exposure control, adjustment of the mA and/or kV according topatient size, and/or utilization of iterative reconstruction technique.Findings: There is a 4 mm right middle lobe pulmonary nodule.A too small to characterize hypodensity is noted in the right hepaticlobe. Gallbladder is absent. There are no peripancreatic inflammatorychanges. A nonspecific small hypodensity is also present in the anteriorspleen.Adrenal glands and kidneys are symmetric. There is no hydronephrosis.There is mild bilateral perinephric stranding which is likely chronic.Bladder is within normal limits.There are significant inflammatory changes and skin thickening along theanterior pelvis wall more pronounced inthe region of the left inguinalsoft tissues. There is a thickened fluid collection extending from theskin surface to the inguinal canal measuring 9.0 x 8.3 x 2.5 cm,probably an inflammatory phlegmon. There is edema extending into theinguinal canal and into the inguinal canal end further down into thescrotal sac. There are varices in the left scrotal sac and a largehydrocele. Cannot exclude no inflammatory process although no discreteair-fluid level seen to indicate an abscess. Surgical clips are noted inthe left inguinal canal. There is partial herniation of the sigmoidcolon through the defect involving only the anterior wall. There ismetatarsal level or soft tissue emphysema.Diverticular changes are seen in the sigmoid colon without evidence ofdiverticulitis. The appendix and small bowel are unremarkable.IMPRESSION:1. Extensive edema in the left inguinal soft tissues with a large 9 cminflammatory phlegmon extending from the skin surface to the inguinalcanal. There is edema and fluid extendingthrough the inguinal canal andinto the scrotal sac.2. Large left hydrocele and varicoceles.3. Possible dehiscence of the left inguinal surgical wound withseparation of the clips.POC Glucose, [id number] 00:40:00 Test Item Value Reference Range Comments POC Glucose (test 127 mg/dL 70-115 If you consider your patient code=POCGLUC) critically ill, the [place] Accu-Chek InformII metershould not be used for Glucose determinations.Draw a venous Glucose and send to the Main Lab for Analysis. Basic Metabolic [id number] 00:10:00 Test Item Value Reference Range Comments Sodium (test code=NA) 137 mmol/L 135-145 Potassium (test code=K) 4.4 mmol/L 3.5-5.1 Chloride (test code=CL) 100 mmol/L 98-105 Carbon Dioxide (test 24 mmol/L 22-29 code=CO2) Glucose (test code=GLU) 128 mg/dL 70-115 Blood Urea Nitrogen 16 mg/dL 8-23 (test code=BUN) Creatinine (test 1.1 mg/dL 0.7-1.2 code=CREAT) Calcium (test code=CA) 7.7 mg/dL 8.3-10.5 BUN/Creatinine Ratio 14.5 (test code=BCRATIO) Anion Gap (test 13 mmol/L 7-16 code=AGAP) Estimated GFR (test >60 mL/min/1.73m2 eGFR (estimated Glomerular code=GFR) Filtration Rate) is an estimated value,calculated from the patient's serum creatinine using the MDRD equation.It is NOT the patient's actual GFR. The eGFR provides a more clinicallyuseful measure of kidney disease than serum creatinine alone.This calculation takes sex and race into account, if the informationis provided. If the race is not provided, and the patient isAfrican-Polish, multiply by 1.212. If sex is not provided, and thepatient is female, multiply by 0.742. Results for patients <18 years ofage have not been validated by the MDRD study and should be interpretedwith caution.eGFR Result Interpretation:eGFR > or=60 is in the Normal RangeeGFR < 60 may mean kidney diseaseeGFR < 15 may mean kidney failureRanges recommended by the National Kidney Foundation,http://nkdep.nih .gov CBC with [id number] 00:03:00 Test Item Value Reference Range Comments WBC (test code=WBC) 16.3 K/cumm 4.4-10.5 RBC (test code=RBC) 3.28 M/cumm 4.10-5.70 Hemoglobin (test code=HGB) 10.0 gm/dL 13.4-17.4 Hematocrit (test code=HCT) 31.4 % 38.7-52.0 MCV (test code=MCV) 95.8 fL 80-100 MCH (test code=MCH) 30.4 pg 27.0-32.5 MCHC (test code=MCHC) 31.8 g/dL 32.0-37.5 RDW (test code=RDW) 12.1 % 11.5-14.5 Platelet Count (test code=PLTCT) 285 K/cumm 140-440 MPV (test code=MPV) 9.8 fL Diff Method (test code=DIFFM) Auto Neutrophil (test code=NEUT) 85.8 % 36-70 Lymphocyte (test code=LYMPH) 6.3 % 12-44 Monocyte (test code=MONO) 6.5 % 0-11 Eosinophil (test code=EOS) 1.1 % 0-7 Basophil (test code=BASO) 0.3 % 0-2 Neutro Abs (test code=ANEUT) 14.0 K/cumm 1.6-7.4 Lymph Abs (test code=ALYMPH) 1.0 K/cumm 0.5-4.6 [place] Abs (test code=AMONO) 1.1 K/cumm 0.0-1.2 Eos Abs (test code=AEOS) 0.19 K/cumm 0.00-0.74 Baso Abs (test code=ABASO) 0.0 K/cumm 0.00-0.21 POC Glucose, [id number] 18:47:00 Test Item Value Reference Range Comments POC Glucose (test 196 mg/dL 70-115 If you consider your patient code=POCGLUC) critically ill, the [place] Accu-Chek InformII metershould not be used for Glucose determinations.Draw a venous Glucose and send to the Main Lab for Analysis. POC Glucose, [id number] 07:59:00 Test Item Value Reference Range Comments POC Glucose (test 157 mg/dL 70-115 If you consider your patient code=POCGLUC) critically ill, the [place] Accu-Chek InformII metershould not be used for Glucose determinations.Draw a venous Glucose and send to the Main Lab for Analysis. Comprehensive Metabolic [id number] 12:09:00 Test Item Value Reference Range Comments Sodium (test code=NA) 139 mmol/L 135-145 Potassium (test code=K) 4.3 mmol/L 3.5-5.1 Chloride (test code=CL) 97 mmol/L 98-105 Carbon Dioxide (test 27 mmol/L 22-29 code=CO2) Glucose (test code=GLU) 124 mg/dL 70-115 Blood Urea Nitrogen 20 mg/dL 8-23 (test code=BUN) Creatinine (test 1.1 mg/dL 0.7-1.2 code=CREAT) Calcium (test code=CA) 9.0 mg/dL 8.3-10.5 Prot Total (test 7.3 g/dL 6.4-8.3 code=TP) Albumin (test code=ALB) 4.5 g/dL 3.5-5.2 A/G Ratio (test 1.6 Ratio code=AGRATIO) Globulin (test 2.8 2.9-3.1 code=GLOB) Bili Total (test 0.2 mg/dL 0.1-0.9 code=TBIL) Alk Phos (test 96 U/L 40-129 code=APHOS) AST (test code=AST) 15 U/L 1-40 ALT (test code=ALT) 13 U/L 1-41 BUN/Creatinine Ratio 18.2 (test code=BCRATIO) Anion Gap (test 15 mmol/L 7-16 code=AGAP) Estimated GFR (test >60 mL/min/1.73m2 eGFR (estimated Glomerular code=GFR) Filtration Rate) is an estimated value,calculated from the patient's serum creatinine using the MDRD equation.It is NOT the patient's actual GFR. The eGFR provides a more clinicallyuseful measure of kidney disease than serum creatinine alone.This calculation takes sex and race into account, if the informationis provided. If the race is not provided, and the patient isAfrican-Polish, multiply by 1.212. If sex is not provided, and thepatient is female, multiply by 0.742. Results for patients <18 years ofage have not been validated by the MDRD study and should be interpretedwith caution.eGFR Result Interpretation:eGFR > or=60 is in the Normal RangeeGFR < 60 may mean kidney diseaseeGFR < 15 may mean kidney failureRanges recommended by the National Kidney Foundation,http://nkdep.nih .gov CBC with [id number] 11:50:00 Test Item Value Reference Range Comments WBC (test code=WBC) 9.1 K/cumm 4.4-10.5 RBC (test code=RBC) 3.98 M/cumm 4.10-5.70 Hemoglobin (test code=HGB) 12.2 gm/dL 13.4-17.4 Hematocrit (test code=HCT) 36.8 % 38.7-52.0 MCV (test code=MCV) 92.4 fL 80-100 MCH (test code=MCH) 30.7 pg 27.0-32.5 MCHC (test code=MCHC) 33.2 g/dL 32.0-37.5 RDW (test code=RDW) 12.4 % 11.5-14.5 Platelet Count (test code=PLTCT) 233 K/cumm 140-440 MPV (test code=MPV) 10.2 fL Diff Method (test code=DIFFM) Auto Neutrophil (test code=NEUT) 71.1 % 36-70 Lymphocyte (test code=LYMPH) 16.4 % 12-44 Monocyte (test code=MONO) 5.9 % 0-11 Eosinophil (test code=EOS) 5.9 % 0-7 Basophil (test code=BASO) 0.7 % 0-2 Neutro Abs (test code=ANEUT) 6.5 K/cumm 1.6-7.4 Lymph Abs (test code=ALYMPH) 1.5 K/cumm 0.5-4.6 [place] Abs (test code=AMONO) 0.5 K/cumm 0.0-1.2 Eos Abs (test code=AEOS) 0.54 K/cumm 0.00-0.74 Baso Abs (test code=ABASO) 0.1 K/cumm 0.00-0.21 XR CHEST 2V, [id number] 10:18:04PA AND LATERAL CHEST:CLINICAL INFORMATION : K40.30: UNIL INGUINAL HERNIA, W OBST, W/O GANGR,NOT SPCF RECUR COMPARISONS : NoneFINDINGS: The lungs are well-expanded. No airspace consolidation is seen.Nopneumothorax or pleural effusion is present. The heart size is normal. There is rounded fullness in both monique. Mild central bronchialthickening is noted. The bones are grossly intact.IMPRESSION:Mild bilateral hilar fullness. The findings either represent prominentpulmonary arteries or hilar lymph nodes. Consider future chest CTfollow-up.Location: R16
--- NOTE | 2019-10-06 19:18 | RAD REPORT ---
EXAM DESCRIPTION: CT - Head Brain Wo Cont - 10/06/2019 7:10 pm CLINICAL HISTORY: fall Trauma, head injury, headache COMPARISON: No comparisons TECHNIQUE: All CT scans are performed using dose optimization technique as appropriate and may inclu de automated exposure control or mA/KV adjustment according to patient size. FINDINGS: No intracranial hemorrhage, hydrocephalus or extra-axial fluid collection.No areas of brai n edema or evidence of midline shift. The paranasal sinuses and mastoids are clear. The calvarium is intact. IMPRESSION: No acute intracranial abnormality.
--- NOTE | 2019-10-06 19:38 | ER ---
Nurse's Notes [facility] Name: Zack Godinez Age: 69 yrs Sex: Male : 1950 Arrival Date: 10/06/2019 Time: 18:12 Bed 30 Private MD: Chandana Rendon R Diagnosis: Superficial injury of head Presentation: 10/06 18:19 Presenting complaint: Patient states: I lost my balance and hit my head on a la1 cinderblock wall on the right side of my head. injury was yesterday afternoon, denies LOC, reports still having a pretty bad KIRK and a little nausea. Transition of care: patient was not received from another setting of care. Mechanism of Injury: resulted from a fall. Onset of symptoms was October 06, 2019. Risk Assessment: Do you want to hurt yourself or someone else? Patient reports no desire to harm self or others. Initial Sepsis Screen: Does the patient meet any 2 criteria? No. Patient's initial sepsis screen is negative. Does the patient have a suspected source of infection? No. Patient's initial sepsis screen is negative. Care prior to arrival: None. 18:19 Method Of Arrival: Ambulatory la1 18:19 Acuity: COREY 4 la1 Historical: - Allergies: 18:20 Codeine; la1 - PMHx: 18:20 Diabetes - NIDDM; Hypertension; la1 - Immunization history:: Adult Immunizations up to date. - Social history:: Smoking status: Patient/guardian denies using tobacco. - Ebola Screening: : No symptoms or risks identified at this time. Screenin:10 Abuse screen: Denies threats or abuse. Nutritional screening: No deficits noted. tr5 Tuberculosis screening: No symptoms or risk factors identified. Fall Risk None identified. Assessment: 19:10 General: Appears uncomfortable, Behavior is calm, cooperative, appropriate for age. tr5 Pain: Complains of pain in scalp. Neuro: Level of Consciousness is awake, alert, obeys commands, Oriented to person, place, time, Professor Of Genetics are equal bilaterally Moves all extremities. Neuro: Reports headache. Cardiovascular: Heart tones present Capillary refill < 3 seconds Pulses are all present. Edema is absent. Respiratory: Airway is patent Respiratory effort is even, unlabored, Respiratory pattern is regular, symmetrical. GI: Reports nausea. : No signs and/or symptoms were reported regarding the genitourinary system. EENT: No signs and/or symptoms were reported regarding the EENT system. Derm: No signs and/or symptoms reported regarding the dermatologic system. Musculoskeletal: No signs and/or symptoms reported regarding the musculoskeletal system. Vital Signs: 18:20 BP 161 / 68; Pulse 76; Resp 16; Temp 98.3; Pulse Ox 100% on R/A; Weight 90.72 kg; la1 Height 5 ft. 6 in. (167.64 cm); 18:20 Body Mass Index 32.28 (90.72 kg, 167.64 cm) la1 [place] Coma Score: 18:19 Eye Response: spontaneous(4). Verbal Response: oriented(5). Motor Response: obeys la1 commands(6). Total: 15. 19:29 Eye Response: spontaneous(4). Verbal Response: oriented(5). Motor Response: obeys kb commands(6). Total: 15. 19:31 Eye Response: spontaneous(4). Verbal Response: oriented(5). Motor Response: obeys kb commands(6). Total: 15. ED Course: 18:12 Patient arrived in ED. rg4 18:12 Chandana Rendon MD is Private Physician. rg4 18:20 Triage completed. la1 18:21 Arm band placed on left wrist. la1 19:02 [facility]C [facility] kb 19:02 Dieudonne Leiva MD is Attending Physician. kb 19:10 Placed in gown. Bed in low position. Call light in reach. tr5 19:11 CT Head Brain wo Cont In Process Unspecified. EDMS 19:14 Prasanna Flowers, ARELY is Primary Nurse. tr5 20:00 No provider procedures requiring assistance completed. Patient did not have IV access tr5 during this emergency room visit. Administered Medications: 19:49 Drug: traMADol 50 mg {Note: RASS:0.} Route: PO; tr5 20:15 Follow up: Response: Pain is decreased; RASS: Alert and Calm (0) tr5 Outcome: 19:36 Discharge ordered by . kb 20:00 Discharged to home ambulatory. tr5 20:00 Condition: stable 20:00 Discharge instructions given to patient, Instructed on discharge instructions, follow up and referral plans. Demonstrated understanding of instructions, follow-up care. 20:03 Patient left the ED. tr5 Signatures: Dispatcher [employer] EDHawa Sparks FNP-C FNP-Uriel Solomon FNP-C FNP-iNa Knight Tommie, RN RN tr5
--- NOTE | 2019-10-06 19:38 | EDPHYS ---
Physician Documentation [facility] Name: Zack Godienz Age: 69 yrs Sex: Male : 1950 Arrival Date: 10/06/2019 Time: 18:12 Bed 30 Private MD: Chandana Rendon R ED Physician Dieudonne Leiva HPI: 10/06 19:31 This 69 yrs old Male presents to ER via Ambulatory with complaints of Head kb Injury-Adult. 19:31 The patient or guardian reports pain. The complaints affect the right side of the back kb of head. Context of injury: The problem was sustained at home, resulted from a fall, while walking, tripped. Onset: The symptoms/episode began/occurred yesterday. Associated signs and symptoms: Loss of consciousness: This patient did not experience any loss of consciousness. Pertinent positives: headache. Severity of symptoms: At their worst the symptoms were mild, in the emergency department the symptoms are unchanged. The patient has not experienced similar symptoms in the past. The patient has not recently seen a physician. 19:34 Pt reports he tripped and fell into concrete wall yesterday. Denies LOC. Reports kb headache today. . Historical: - Allergies: 18:20 Codeine; la1 - PMHx: 18:20 Diabetes - NIDDM; Hypertension; la1 - Immunization history:: Adult Immunizations up to date. - Social history:: Smoking status: Patient/guardian denies using tobacco. - Ebola Screening: : No symptoms or risks identified at this time. ROS: 19:31 Constitutional: Negative for fever, chills, and weight loss, Eyes: Negative for injury, kb pain, redness, and discharge, ENT: Negative for injury, pain, and discharge, Neck: Negative for injury, pain, and swelling, Cardiovascular: Negative for chest pain, palpitations, and edema, Respiratory: Negative for shortness of breath, cough, wheezing, and pleuritic chest pain, Abdomen/GI: Negative for abdominal pain, nausea, vomiting, diarrhea, and constipation, Back: Negative for injury and pain, MS/Extremity: Negative for injury and deformity, Skin: Negative for injury, rash, and discoloration. 19:31 Neuro: Positive for headache. Exam: 19:30 Constitutional: This is a well developed, well nourished patient who is awake, alert, kb and in no acute distress. Eyes: Pupils equal round and reactive to light, extra-ocular motions intact. Lids and lashes normal. Conjunctiva and sclera are non-icteric and not injected. Cornea within normal limits. Periorbital areas with no swelling, redness, or edema. ENT: Nares patent. No nasal discharge, no septal abnormalities noted. Tympanic membranes are normal and external auditory canals are clear. Oropharynx with no redness, swelling, or masses, exudates, or evidence of obstruction, uvula midline. Mucous membranes moist. Neck: Trachea midline, no thyromegaly or masses palpated, and no cervical lymphadenopathy. Supple, full range of motion without nuchal rigidity, or vertebral point tenderness. No Meningismus. Chest/axilla: Normal chest wall appearance and motion. Nontender with no deformity. No lesions are appreciated. Cardiovascular: Regular rate and rhythm with a normal S1 and S2. No gallops, murmurs, or rubs. Normal PMI, no JVD. No pulse deficits. Respiratory: Lungs have equal breath sounds bilaterally, clear to auscultation and percussion. No rales, rhonchi or wheezes noted. No increased work of breathing, no retractions or nasal flaring. Abdomen/GI: Soft, non-tender, with normal bowel sounds. No distension or tympany. No guarding or rebound. No evidence of tenderness throughout. Skin: Warm, dry with normal turgor. Normal color with no rashes, no lesions, and no evidence of cellulitis. MS/ Extremity: Pulses equal, no cyanosis. Neurovascular intact. Full, normal range of motion. Neuro: Awake and alert, GCS 15, oriented to person, place, time, and situation. Cranial nerves II-XII grossly intact. Motor strength 5/5 in all extremities. Sensory grossly intact. Cerebellar exam normal. Normal gait. 19:37 Head/face: Noted is no obvious of injury or deformity except hematoma, that is mild, of kb the right side of the back of head. Vital Signs: 18:20 BP 161 / 68; Pulse 76; Resp 16; Temp 98.3; Pulse Ox 100% on R/A; Weight 90.72 kg; la1 Height 5 ft. 6 in. (167.64 cm); 18:20 Body Mass Index 32.28 (90.72 kg, 167.64 cm) la1 Hema Coma Score: 18:19 Eye Response: spontaneous(4). Verbal Response: oriented(5). Motor Response: obeys la1 commands(6). Total: 15. 19:29 Eye Response: spontaneous(4). Verbal Response: oriented(5). Motor Response: obeys kb commands(6). Total: 15. 19:31 Eye Response: spontaneous(4). Verbal Response: oriented(5). Motor Response: obeys kb commands(6). Total: 15. MDM: 19:02 Patient medically screened. kb 19:29 Data reviewed: vital signs, nurses notes. Data interpreted: Pulse oximetry: on room air kb is 100 %. Interpretation: normal. Counseling: I had a detailed discussion with the patient and/or guardian regarding: the historical points, exam findings, and any diagnostic results supporting the discharge/admit diagnosis, radiology results, the need for outpatient follow up, a family practitioner, to return to the emergency department if symptoms worsen or persist or if there are any questions or concerns that arise at home. 10/06 18:24 Order name: CT Head Brain wo Cont; Complete Time: 19:24 la1 Administered Medications: 19:49 Drug: traMADol 50 mg {Note: RASS:0.} Route: PO; tr5 20:15 Follow up: Response: Pain is decreased; RASS: Alert and Calm (0) tr5 Disposition: 10/06/19 19:36 Discharged to Home. Impression: Superficial injury of head. - Condition is Stable. - Discharge Instructions: Hematoma, [id number], Head Injury, Adult, [id number]. - Medication Reconciliation Form, Thank You Letter, Antibiotic Education, Prescription Opioid Use form. - Follow up: Emergency Department; When: As needed; Reason: Worsening of condition. Follow up: Private Physician; When: 2 - 3 days; Reason: Recheck today's complaints, Continuance of care, Re-evaluation by your physician. Addendum: 10/11/2019 09:57 Co-signature as Attending Physician, Dieudonne Leiva MD I agree with the assessment and k dr plan of care. Signatures: Dispatcher [employer] EDKY Hawa Batres, BRANDON-C PROCESS MOLD TECHNICIAN-Dieudonne Elliott MD MD kdr Attema, Lee, FNP-C PROCESS MOLD TECHNICIAN-Cla1 Prasanna Flowers RN RN tr5 Corrections: (The following items were deleted from the chart) 10/06 19:37 19:30 Constitutional: This is a well developed, well nourished patient who is awake, kb alert, and in no acute distress. Head/Face: Normocephalic, atraumatic. Eyes: Pupils equal round and reactive to light, extra-ocular motions intact. Lids and lashes normal. Conjunctiva and sclera are non-icteric and not injected. Cornea within normal limits. Periorbital areas with no swelling, redness, or edema. ENT: Nares patent. No nasal discharge, no septal abnormalities noted. Tympanic membranes are normal and external auditory canals are clear. Oropharynx with no redness, swelling, or masses, exudates, or evidence of obstruction, uvula midline. Mucous membranes moist. Neck: Trachea midline, no thyromegaly or masses palpated, and no cervical lymphadenopathy. Supple, full range of motion without nuchal rigidity, or vertebral point tenderness. No Meningismus. Chest/axilla: Normal chest wall appearance and motion. Nontender with no deformity. No lesions are appreciated. Cardiovascular: Regular rate and rhythm with a normal S1 and S2. No gallops, murmurs, or rubs. Normal PMI, no JVD. No pulse deficits. Respiratory: Lungs have equal breath sounds bilaterally, clear to auscultation and percussion. No rales, rhonchi or wheezes noted. No increased work of breathing, no retractions or nasal flaring. Abdomen/GI: Soft, non-tender, with normal bowel sounds. No distension or tympany. No guarding or rebound. No evidence of tenderness throughout. Skin: Warm, dry with normal turgor. Normal color with no rashes, no lesions, and no evidence of cellulitis. MS/ Extremity: Pulses equal, no cyanosis. Neurovascular intact. Full, normal range of motion. Neuro: Awake and alert, GCS 15, oriented to person, place, time, and situation. Cranial nerves II-XII grossly intact. Motor strength 5/5 in all extremities. Sensory grossly intact. Cerebellar exam normal. Normal gait. kb 20:03 19:36 10/06/2019 19:36 Discharged to Home. Impression: Superficial injury of head. tr5 Condition is Stable. Forms are Medication Reconciliation Form, Thank You Letter, Antibiotic Education, Prescription Opioid Use. Follow up: Emergency Department; When: As needed; Reason: Worsening of condition. Follow up: Private Physician; When: 2 - 3 days; Reason: Recheck today's complaints, Continuance of care, Re-evaluation by your physician. kb
[2019-10-06] MEDS ORDERED: TRAMADOL HCL 50 MG TAB ONE (19:48)
[2019-10-06 20:59] VITALS: BP 161/68; TEMP 98.3; O2SAT 100
== END 2019-10-06 20:03 | disposition home or self-care (01) ==
LOC: ER 18:10
DX: S00.90XA Unspecified superficial injury of unspecified part of head, initial encounter (principal); W18.39XA Other fall on same level, initial encounter; Y93.89 Activity, other specified; Y92.9 Unspecified place or not applicable; Z88.6 Allergy status to analgesic agent
CPT/HCPCS: 70450; 99283

== ENCOUNTER 2020-07-02 18:11 | Inpatient (IN) | payer OTHER ==
--- OUTSIDE RECORDS SUMMARY | 2020-07-02 18:13 | XMS REPORT | Clinical Summary ---
:1950 Author Organization [facility] Address [address] [place] [address] Care Team Providers Name Role Phone Chandana Ovalle MD Primary Care Provider Allergies Active Allergy Reactions Severity Noted Date Comments Adhesive Tape-Silicones Rash Low 08/17/2018 Codeine 07/28/2018 Stomach cramps Medications Medication Sig Dispensed Refills Start Date End Date Status benazepril (LOTENSIN) Take 40 mg by 0 Active 40 MG tablet mouth every morning. glipizide-metformin Take 1 tablet by 0 Active (METAGLIP) 5-500 mg per mouth 3 (three) tablet times a day with meals. verapamil (CALAN) 80 MG Take 80 mg by 0 Active tablet mouth 3 (three) times a day. losartan (COZAAR) 100 Take 100 mg by 0 Active MG tablet mouth every morning. vit Take by mouth. 0 Activ e C/E/Zn/coppr/lutein/florecita ollie (PRESERVISION AREDS 2 ORAL) furosemide (LASIX) 40 Take 40 mg by 0 Active mg tablet mouth 2 (two) times a day. oxymetazoline (AFRIN) 2 sprays into 0 Active 0.05 % nasal spray each nostril every 12 (twelve) hours. Active Problems Problem Noted Date Recurrent inguinal hernia of left side without obstruc tion or gangrene 08/17/2018 Family History Medical History Relation Name Comments Heart disease Father Diabetes Mother Hypertension Mother Diabetes Sister Hypertension Sister Relation Name Status Comments Father Mother Sister Social History Tobacco Use Types Packs/Day Years Used Date Former Smoker Cigarettes Quit: 1973 Smokeless Tobacco: Never Used Comments: former smoker 2 cigarettes per day quit on 1973 Alcohol Use Drinks/Week oz/Week Comments Yes social Sex Assigned at Date Recorded Not on file Job Start Date Occupation Industry Not on file Not on file Not on file Travel History Travel Start Travel End No recent travel history available. Last Filed Vital Signs Not on file Plan of Treatment Health Maintenance Due Date Last Done Comments COLONOSCOPY SCREENING 1999 SHINGLES VACCINES (#1) 1999 65+ PNEUMOCOCCAL VACCINE (1 of 2 - PCV13) 2014 INFLUENZA VACCINE 08/10/2020 Implants Implanted Type Area Fruit Cutter Device Shelf Model / Identifier Expiration Serial / Date Lot System Capsure Perm Fixation 15 Fastners - [id number] Surgical N/A: N/A [employer] 02/05/2020 [id number] / Implanted: 08/17/2018 at [facility] (Quantity not on file) Implants; / Expanders; [id number] Extenders; Surgical Wires Mesh Hrnia Rpr Parietex Easegrip [id number] - [id number] Surgica l N/A: N/A [employer] US 01/07/2023 [id number] / Implanted: 08/17/2018 at [facility] (Quantity not on file) Mesh or SURGICAL / Tissue [id number] Barrier Products Results Not on fileafter 07/02/2019 [facility] 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
--- OUTSIDE RECORDS SUMMARY | 2020-07-02 18:15 | XMS REPORT | Continuity of Care Document ---
:1950 Author Organization [facility] t Address [address] [place] [address] Care Team Providers Name Role Phone CHRIS AMADOR Yesi Primary Care Physician Unavailable ALEXANDRA BELL M.D. Attending Clinician Unavailable MATT LUONG M.D. Attending Clinician Unavailable ALEXANDRA BELL M.D., J Admitting Clinician Unavailabl e MATT LUONG M.D., L Admitting Clinician Unavailable Problems Condition Condition Condition Status Onset Resolution Last Treating Co mments Source Name Details Category Date Date Treatment Clinician Date Recurrent Recurrent Disease Active 2017-11 Mati stoyesi inguinal inguinal 0-08 Method i hernia of hernia of 00:00: st left side left side 00 without without obstructio obstructio n or n or gangrene gangrene Allergies, Adverse Reactions, Alerts Allergy Allergy Status Severity Reaction(s) Onset Inactive Treating Comm ents Source Name Type Date Date Clinician Adhesive Propensi Active Rash 2017-11 [place] Tape-Katherine ty to 0-08 [facility] icones adverse 00:00: st reaction 00 s to drug Codeine Propensi Active Stomach [place] ty to 9-18 cramps [facility] adverse 00:00: st reaction 00 s to drug Family History Family Member Diagnosis Comments Start Date Stop Date Source Natural father Heart disease [place] [facility] Natural mother Diabetes [place] [facility] Natural mother Hypertension [place] [facility] Natural sister Diabetes [facility] thodist Natural sister Hypertension [facility] Social History Social Habit Start Date Stop Date Quantity Comments Source History of Current smoker [facility] thodist tobacco use Sex Assigned At [facility] ethodist Alcohol intake 2018-08-21 2018-08-21 Current drinker of Ramesh Rabago 00:00:00 00:00:00 alcohol (finding) Tobacco Comment 2018-08-21 2018-08-21 former smoker 2 [place] [facility] 00:00:00 00:00:00 cigarettes per day quit on 1973 Alcohol Comment 2018-06-24 2018-06-24 social Ki Salazar ethodist 00:00:00 00:00:00 Smoking Status Start Date Stop Date Source Former smoker 2018-08-21 00:00:00 2018-08-21 00:00:00 Ki Rabago Medications Ordered Filled Start Stop Current Ordering Indication Dosage Frequency Signature Comments Components Source Medication Medication Date Date Medication? Clinician (SIG) Name Name benazepril 2017-11 Yes 40mg QD Take 40 mg [place] (LOTENSIN) 0-12 by mouth Metho di 40 MG 09:48: every st tablet 18 morning. glipizide-m 2017-11 Yes 1{tbl} Q.[id number] Take 1 [facility] etformin 0-12 [id number] tablet by [facility] (METAGLIP) 09:48: 3D mouth 3 st 5-500 mg 18 (three) per tablet times a day with meals. verapamil 2017-11 Yes 80mg Q.[id number] Take 80 mg [place] (CALAN) 80 0-12 [id number] by mouth 3 [facility] MG tablet 09:48: 3D (three) st 18 times a day. losartan 2017-11 Yes 100mg QD Take 100 [place] (COZAAR) 0-12 mg by [facility] 100 MG 09:48: mouth st tablet 18 every morning. vit 2017-11 Yes Take by [facility] C/E/Zn/juanjose 0-12 mouth. Method i r/lutein/ze 09:48: st axan 18 (PRESERVISI ON AREDS 2 ORAL) furosemide 2017-11 Yes 40mg Q.5D Take 40 mg [place] (LASIX) 40 0-12 by mouth 2 Met hodi mg tablet 09:48: (two) st 18 times a day. oxymetazoli 2017-11 Yes 2{spray Q12H 2 sprays [place] ne (AFRIN) 0-12 } into each Meth moisés 0.05 % 09:48: nostril st nasal spray 18 every 12 (twelve) hours. Procedures This patient has no known procedures. Plan of Care Planned Activity Planned Date Details Comments Source Future Scheduled 2020-08-10 INFLUENZA VACCINE [place] [facility] Test 00:00:00 [code = INFLUENZA VACCINE] Future Scheduled 2014 65+ PNEUMOCOCCAL [place] [facility] Test 00:00:00 VACCINE (1 of 2 - PCV13) [code = 65+ PNEUMOCOCCAL VACCINE (1 of 2 - PCV13)] Future Scheduled 1999 COLONOSCOPY SCREENING [place] [facility] Test 00:00:00 [code = COLONOSCOPY SCREENING] Future Scheduled 1999 SHINGLES VACCINES (#1) [place] [facility] Test 00:00:00 [code = SHINGLES VACCINES (#1)] Results Test Description Test Time Test Comments Results Result Comments Source POC Glucose, Blood 2018-02-16 19:18:00 Test Item Value Reference Range Interpretation Comme nts POC Glucose (test code = 119 mg/dL 70-115 H If you consider your patient POCGLUC) critically ill, the [place] Accu-Chek InformII meters hould not be used for Glucose determi nations.Draw a venous Glucose and sen d to the Main Lab for Analysis. POC Glucose, [id number] 16:20:00 Test Item Value Reference Range Interpretation Comments POC Glucose (test 129 mg/dL 70-115 H If you con pediatric occupational therapist your code = POCGLUC) patient crit ically ill, the [place] Accu- Chek InformII meters hould not be used for Glu cose determinations. Draw a venous Glucose and send to the Main Lab for Analysis. POC Glucose, [id number] 11:34:00 Test Item Value Reference Range Interpretation Comments POC Glucose (test 93 mg/dL 70-115 N If you con pediatric occupational therapist your code = POCGLUC) patient crit ically ill, the [place] Accu- Chek InformII meters hould not be used for Glu cose determinations. Draw a venous Glucose and send to the Main Lab for Analysis. POC Glucose, [id number] 11:34:00 Test Item Value Reference Range Interpretation Comments POC Glucose (test 162 mg/dL 70-115 H If you con pediatric occupational therapist your code = POCGLUC) patient crit ically ill, the [place] Accu- Chek InformII meters hould not be used for Glu cose determinations. Draw a venous Glucose and send to the Main Lab for Analysis. POC Glucose, [id number] 07:48:00 Test Item Value Reference Range Interpretation Comments POC Glucose (test 106 mg/dL 70-115 N If you con pediatric occupational therapist your code = POCGLUC) patient crit ically ill, the [place] Accu- Chek InformII meters hould not be used for Glu cose determinations. Draw a venous Glucose and send to the Main Lab for Analysis. POC Glucose, [id number] 05:53:00 Test Item Value Reference Range Interpretation Comments POC Glucose (test 114 mg/dL 70-115 N If you con pediatric occupational therapist your code = POCGLUC) patient crit ically ill, the [place] Accu- Chek InformII meters hould not be used for Glu cose determinations. Draw a venous Glucose and send to the Main Lab for Analysis. POC Glucose, [id number] 20:20:00 Test Item Value Reference Range Interpretation Comments POC Glucose (test 123 mg/dL 70-115 H Notify RN or MDIf you code = POCGLUC) consider you r patient critically ill, the [place] Accu-Chek InformII metershould not be used for Glucose determinations. Draw a venous Glucose and send to the Main Lab for Analysis. POC Glucose, [id number] 15:37:00 Test Item Value Reference Range Interpretation Comments POC Glucose (test 102 mg/dL 70-115 N If you con pediatric occupational therapist your code = POCGLUC) patient crit ically ill, the [place] Accu- Chek InformII meters hould not be used for Glu cose determinations. Draw a venous Glucose and send to the Main Lab for Analysis. POC Glucose, [id number] 11:41:00 Test Item Value Reference Range Interpretation Comments POC Glucose (test 213 mg/dL 70-115 H Notify RN or MDIf you code = POCGLUC) consider you r patient critically ill, the [place] Accu-Chek InformII metershould not be used for Glucose determinations. Draw a venous Glucose and send to the Main Lab for Analysis. POC Glucose, [id number] 07:35:00 Test Item Value Reference Range Interpretation Comments POC Glucose (test 125 mg/dL 70-115 H If you con pediatric occupational therapist your code = POCGLUC) patient crit ically ill, the [place] Accu- Chek InformII meters hould not be used for Glu cose determinations. Draw a venous Glucose and send to the Main Lab for Analysis. Basic Metabolic [id number] 05:52:00 Test Item Value Reference Range Interpretation Comments Sodium (test code = 137 mmol/L 135-145 N NA) Potassium (test 3.9 mmol/L 3.5-5.1 N code = K) Chloride (test code 100 mmol/L 98-105 N = CL) Carbon Dioxide 25 mmol/L 22-29 N (test code = CO2) Glucose (test code 129 mg/dL 70-115 H = GLU) Blood Urea Nitrogen 14 mg/dL 8-23 N (test code = BUN) Creatinine (test 1.0 mg/dL 0.7-1.2 N code = CREAT) Calcium (test code 8.5 mg/dL 8.3-10.5 N = CA) BUN/Creatinine 14.0 Ratio (test code = BCRATIO) Anion Gap (test 12 mmol/L 7-16 N code = AGAP) Estimated GFR (test >60 eGFR (es timated code = GFR) mL/min/1.73m2 Glomerular Dagoberto tration Rate) is an est imated value,calculate d from the patient's s lenora creatinine usin g the MDRD equation.I t is NOT the patient 's actual GFR. The eGFR provides a more clinicallyusefu l measure of kidn ey disease than se rum creatinine alone.This calculation jagdeep es sex and race into account, if the informationis provided. If th e race is not provided , and the patient isAfrican-Ameri can, multiply by 1.2 12. If sex is not prov ided, and thepatient is female, multipl y by 0.742. Results for patients <18 ye ars ofage have not been validated by th e MDRD study and shoul d be interpretedwith caution.eGFR Re sult Interpretation: eGFR > or = 60 is in t he Normal RangeeGF R < 60 may mean kidney diseaseeGFR < 1 5 may mean kidney failureRange s recommended by the National Kidney Foundation,http ://nkd ep.nih.gov POC Glucose, [id number] 20:10:00 Test Item Value Reference Range Interpretation Comments POC Glucose (test 117 mg/dL 70-115 H If you con pediatric occupational therapist your code = POCGLUC) patient crit ically ill, the [place] Accu- Chek InformII meters hould not be used for Glu cose determinations. Draw a venous Glucose and send to the Main Lab for Analysis. POC Glucose, [id number] 16:18:00 Test Item Value Reference Range Interpretation Comments POC Glucose (test 69 mg/dL 70-115 L If you con pediatric occupational therapist your code = POCGLUC) patient crit ically ill, the [place] Accu- Chek InformII meters hould not be used for Glu cose determinations. Draw a venous Glucose and send to the Main Lab for Analysis. POC Glucose, [id number] 12:05:00 Test Item Value Reference Range Interpretation Comments POC Glucose (test 208 mg/dL 70-115 H Notify RN or MDIf you code = POCGLUC) consider you r patient critically ill, the [place] Accu-Chek InformII metershould not be used for Glucose determinations. Draw a venous Glucose and send to the Main Lab for Analysis. Vancomycin, [id number] 10:13:00 Test Item Value Reference Range Interpretation Comments Stephy Ordaz (test code = VANTR) 16.9 ug/mL 10.0-20.0 N Culture, Blood [id number] 08:34:00Specimen: BloodCollected: 02/08/2018 23:30 Status: Final Last Updated: 02/14/2018 08:34 Culture Result (Final) (Final) No Growth After 5 DaysPOC Glucose, [id number] 06:43:00 Test Item Value Reference Range Interpretation Comments POC Glucose (test 161 mg/dL 70-115 H If you con pediatric occupational therapist your code = POCGLUC) patient crit ically ill, the [place] Accu- Chek InformII meters hould not be used for Glu cose determinations. Draw a venous Glucose and send to the Main Lab for Analysis. [id number] 06:05:00 Test Item Value Reference Range Interpretation Comments Albumin (test code = ALB) 3.3 g/dL 3.5-5.2 L POC Glucose, [id number] 18:44:00 Test Item Value Reference Range Interpretation Comments POC Glucose (test 220 mg/dL 70-115 H If you con pediatric occupational therapist your code = POCGLUC) patient crit ically ill, the [place] Accu- Chek InformII meters hould not be used for Glu cose determinations. Draw a venous Glucose and send to the Main Lab for Analysis. POC Glucose, [id number] 16:25:00 Test Item Value Reference Range Interpretation Comments POC Glucose (test 163 mg/dL 70-115 H If you con pediatric occupational therapist your code = POCGLUC) patient crit ically ill, the [place] Accu- Chek InformII meters hould not be used for Glu cose determinations. Draw a venous Glucose and send to the Main Lab for Analysis. XR CHEST 1 [id number] 14:59:07CHEST 1 VIEWCLINICAL INFORMATION: piccCOMPARISON: January 23, 2018FINDINGS:The tip of the right arm PICC projects over the superior cavoatrialjunction. The lungs are well-expanded and clear. The heartsize isnormal. The bones are intact.IMPRESSION:No acute cardiopulmonary finding.[facility]: [id number] Glucose, [id number] 11:32:00 Test Item Value Reference Range Interpretation Comments POC Glucose (test 156 mg/dL 70-115 H If you con pediatric occupational therapist your code = POCGLUC) patient crit ically ill, the [place] Accu- Chek InformII meters hould not be used for Glu cose determinations. Draw a venous Glucose and send to the Main Lab for Analysis. Culture, Wound [id number] 09:51:00Specimen: GroinCollected: 02/09/2018 15:00 Status: Final Last Updated: 02/13/2018 09:51 Gram Stain (Final) (Final) 02/10/18 Moderate Gram negative rods , Few WBC'S Culture Result (Final) (Final) 02/13/18 Anaerobic culture:No anaerobes isolated at 3 days Isolate (Final) (Final) 02/11/18 Few Escherichia coli Amikacin <=16 Susceptible Ampicillin >16 Resistant Ampicillin/Sulb >16/8 Resistant Cefazolin <=8 Susceptible Cefepime <=4 Susceptible Cefotaxime <=2 Susceptible Ceftazidime <=1 Susceptible Ceftriaxone <=1 Susceptible Cefuroxime <=4 Susceptible Ciprofloxacin <=1 Susceptible Gentamicin <=4 Susceptible Imipenem <=1 Susceptible Levofloxacin <=2 Susceptible Meropenem <=1 Susceptible Piperacillin/Tazo <=16 Susceptible Tobramycin <=4 Susceptible Trimethoprim/Sulfa <=2/38 Susceptible Isolate (Final) (Final) 02/11/18 Few Group D Enterococcus Isolate Group D Enterococcus CAYETANO (mcg/ml) Ampicillin (AM) <=2 Susceptible Gentamicin Syn (HLG) >500 Resistant Linezolid (LNZ) 2 Susceptible Penicillin (P)0.5 Susceptible Streptomycin Syn (HLS)<=1000 Susceptible Vancomycin (VA) 2SusceptiblePOC Glucose, [id number] 07:47:00 Test Item Value Reference Range Interpretation Comments POC Glucose (test 132 mg/dL 70-115 H If you con pediatric occupational therapist your code = POCGLUC) patient crit ically ill, the [place] Accu- Chek InformII meters hould not be used for Glu cose determinations. Draw a venous Glucose and send to the Main Lab for Analysis. CBC with [id number] 07:12:00 Test Item Value Reference Range Interpretation Comments WBC (test code = WBC) 8.0 K/cumm 4.4-10.5 N RBC (test code = RBC) 3.17 M/cumm 4.10-5.70 L Hemoglobin (test code = HGB) 9.6 gm/dL 13.4-17.4 L Hematocrit (test code = HCT) 29.7 % 38.7-52.0 L MCV (test code = MCV) 93.8 fL 80-100 N MCH (test code = MCH) 30.3 pg 27.0-32.5 N MCHC (test code = MCHC) 32.3 g/dL 32.0-37.5 N RDW (test code = RDW) 12.5 % 11.5-14.5 N Platelet Count (test code = 383 K/cumm 140-440 N PLTCT) MPV (test code = MPV) 9.9 fL Diff Method (test code = DIFFM) Auto Neutrophil (test code = NEUT) 72.7 % 36-70 H Lymphocyte (test code = LYMPH) 13.4 % 12-44 N Monocyte (test code = MONO) 8.1 % 0-11 N Eosinophil (test code = EOS) 5.3 % 0-7 N Basophil (test code = BASO) 0.5 % 0-2 N Neutro Abs (test code = ANEUT) 5.8 K/cumm 1.6-7.4 N Lymph Abs (test code = ALYMPH) 1.1 K/cumm 0.5-4.6 N Miner Abs (test code = AMONO) 0.7 K/cumm 0.0-1.2 N Eos Abs (test code = AEOS) 0.42 K/cumm 0.00-0.74 N Baso Abs (test code = ABASO) 0.0 K/cumm 0.00-0.21 N POC Glucose, [id number] 18:59:00 Test Item Value Reference Range Interpretation Comments POC Glucose (test 168 mg/dL 70-115 H If you con pediatric occupational therapist your code = POCGLUC) patient crit ically ill, the [place] Accu- Chek InformII meters hould not be used for Glu cose determinations. Draw a venous Glucose and send to the Main Lab for Analysis. POC Glucose, [id number] 16:07:00 Test Item Value Reference Range Interpretation Comments POC Glucose (test 88 mg/dL 70-115 N If you con pediatric occupational therapist your code = POCGLUC) patient crit ically ill, the [place] Accu- Chek InformII meters hould not be used for Glu cose determinations. Draw a venous Glucose and send to the Main Lab for Analysis. POC Glucose, [id number] 11:32:00 Test Item Value Reference Range Interpretation Comments POC Glucose (test 158 mg/dL 70-115 H If you con pediatric occupational therapist your code = POCGLUC) patient crit ically ill, the [place] Accu- Chek InformII meters hould not be used for Glu cose determinations. Draw a venous Glucose and send to the Main Lab for Analysis. Culture, Wound [id number] 09:58:00Specimen: AbdomenCollected: 02/08/2018 23:02 Status: Final Last Updated: 02/12/2018 09:58 Gram Stain (Final) (Final) 02/10/18 No organsims seen, No WBC's seen Culture Result (Final) (Final) 02/11/18 Few Staph-coag negative 02/12/18 Multiple organisms present, no further workup in progress 02/12/18 Anaerobic culture:No anaerobes isolated at 3 days Isolate (Final) (Final) 02/10/18 Few Escherichia coli Amikacin <=16 Susceptible Ampicillin >16 Resistant Ampicillin/Sulb 16/8 Intermediate Cefazolin <=8Susceptible Cefepime <=4 Susceptible Cefotaxime <=2 Susceptible Ceftazidime <=1 Susceptible Ceftriaxone <=1 Susceptible Cefuroxime 16 Intermediate Ciprofloxacin <=1 Susceptible Gentamicin <=4 Susceptible Imipenem <=1 Susceptible Levofloxacin <=2 Susceptible Meropenem <=1 Susceptible Piperacillin/Tazo <=16 Susceptible Tobramycin <=4 Susceptible Trimethoprim/Sulfa <=2/38 Susceptible Isolate (Final) (Final) 02/10/18 Moderate Group D Enterococcus Isolate Group D Enterococcus CAYETANO (mcg/ml) Ampicillin (AM) <=2 Susceptible Gentamicin Syn (HLG) >500 Resistant Linezolid (LNZ) 2 Susceptible Penicillin (P)0.5 Susceptible Streptomycin Syn (HLS)<=1000 Susceptible Vancomycin (VA) 4SusceptiblePOC Glucose, [id number] 07:58:00 Test Item Value Reference Range Interpretation Comments POC Glucose (test 142 mg/dL 70-115 H If you con pediatric occupational therapist your code = POCGLUC) patient crit ically ill, the [place] Accu- Chek InformII meters hould not be used for Glu cose determinations. Draw a venous Glucose and send to the Main Lab for Analysis. POC Glucose, [id number] 06:11:00 Test Item Value Reference Range Interpretation Comments POC Glucose (test 152 mg/dL 70-115 H If you con pediatric occupational therapist your code = POCGLUC) patient crit ically ill, the [place] Accu- Chek InformII meters hould not be used for Glu cose determinations. Draw a venous Glucose and send to the Main Lab for Analysis. CBC with [id number] 06:01:00 Test Item Value Reference Range Interpretation Comments WBC (test code = WBC) 7.4 K/cumm 4.4-10.5 N RBC (test code = RBC) 3.43 M/cumm 4.10-5.70 L Hemoglobin (test code = HGB) 10.5 gm/dL 13.4-17.4 L Hematocrit (test code = HCT) 32.5 % 38.7-52.0 L MCV (test code = MCV) 94.7 fL 80-100 N MCH (test code = MCH) 30.6 pg 27.0-32.5 N MCHC (test code = MCHC) 32.3 g/dL 32.0-37.5 N RDW (test code = RDW) 12.1 % 11.5-14.5 N Platelet Count (test code = 365 K/cumm 140-440 N PLTCT) MPV (test code = MPV) 10.0 fL Diff Method (test code = DIFFM) Auto Neutrophil (test code = NEUT) 67.7 % 36-70 N Lymphocyte (test code = LYMPH) 15.8 % 12-44 N Monocyte (test code = MONO) 8.3 % 0-11 N Eosinophil (test code = EOS) 7.3 % 0-7 H Basophil (test code = BASO) 0.8 % 0-2 N Neutro Abs (test code = ANEUT) 5.0 K/cumm 1.6-7.4 N Lymph Abs (test code = ALYMPH) 1.2 K/cumm 0.5-4.6 N Miner Abs (test code = AMONO) 0.6 K/cumm 0.0-1.2 N Eos Abs (test code = AEOS) 0.54 K/cumm 0.00-0.74 N Baso Abs (test code = ABASO) 0.1 K/cumm 0.00-0.21 N Basic Metabolic [id number] 05:55:00 Test Item Value Reference Range Interpretation Comments Sodium (test code = 139 mmol/L 135-145 N NA) Potassium (test 4.6 mmol/L 3.5-5.1 N code = K) Chloride (test code 104 mmol/L 98-105 N = CL) Carbon Dioxide 24 mmol/L 22-29 N (test code = CO2) Glucose (test code 148 mg/dL 70-115 H = GLU) Blood Urea Nitrogen 13 mg/dL 8-23 N (test code = BUN) Creatinine (test 1.1 mg/dL 0.7-1.2 N code = CREAT) Calcium (test code 8.6 mg/dL 8.3-10.5 N = CA) BUN/Creatinine 11.8 Ratio (test code = BCRATIO) Anion Gap (test 11 mmol/L 7-16 N code = AGAP) Estimated GFR (test >60 eGFR (es timated code = GFR) mL/min/1.73m2 Glomerular Dagoberto tration Rate) is an est imated value,calculate d from the patient's s lenora creatinine usin g the MDRD equation.I t is NOT the patient 's actual GFR. The eGFR provides a more clinicallyusefu l measure of kidn ey disease than se rum creatinine alone.This calculation jagdeep es sex and race into account, if the informationis provided. If th e race is not provided , and the patient isAfrican-Ameri can, multiply by 1.2 12. If sex is not prov ided, and thepatient is female, multipl y by 0.742. Results for patients <18 ye ars ofage have not been validated by th e MDRD study and shoul d be interpretedwith caution.eGFR Re sult Interpretation: eGFR > or = 60 is in t he Normal RangeeGF R < 60 may mean kidney diseaseeGFR < 1 5 may mean kidney failureRange s recommended by the National Kidney Foundation,http ://nkd ep.nih.gov POC Glucose, [id number] 00:53:00 Test Item Value Reference Range Interpretation Comments POC Glucose (test 146 mg/dL 70-115 H If you con pediatric occupational therapist your code = POCGLUC) patient crit ically ill, the [place] Accu- Chek InformII meters hould not be used for Glu cose determinations. Draw a venous Glucose and send to the Main Lab for Analysis. POC Glucose, [id number] 21:21:00 Test Item Value Reference Range Interpretation Comments POC Glucose (test 209 mg/dL 70-115 H If you con pediatric occupational therapist your code = POCGLUC) patient crit ically ill, the [place] Accu- Chek InformII meters hould not be used for Glu cose determinations. Draw a venous Glucose and send to the Main Lab for Analysis. POC Glucose, [id number] 16:34:00 Test Item Value Reference Range Interpretation Comments POC Glucose (test 199 mg/dL 70-115 H If you con pediatric occupational therapist your code = POCGLUC) patient crit ically ill, the [place] Accu- Chek InformII meters hould not be used for Glu cose determinations. Draw a venous Glucose and send to the Main Lab for Analysis. POC Glucose, [id number] 11:54:00 Test Item Value Reference Range Interpretation Comments POC Glucose (test 190 mg/dL 70-115 H If you con pediatric occupational therapist your code = POCGLUC) patient crit ically ill, the [place] Accu- Chek InformII meters hould not be used for Glu cose determinations. Draw a venous Glucose and send to the Main Lab for Analysis. POC Glucose, [id number] 07:44:00 Test Item Value Reference Range Interpretation Comments POC Glucose (test 217 mg/dL 70-115 H Notify RN or MDIf you code = POCGLUC) consider you r patient critically ill, the [place] Accu-Chek InformII metershould not be used for Glucose determinations. Draw a venous Glucose and send to the Main Lab for Analysis. Basic Metabolic [id number] 07:23:00 Test Item Value Reference Range Interpretation Comments Sodium (test code = 139 mmol/L 135-145 N NA) Potassium (test 4.7 mmol/L 3.5-5.1 N code = K) Chloride (test code 104 mmol/L 98-105 N = CL) Carbon Dioxide 24 mmol/L 22-29 N (test code = CO2) Glucose (test code 124 mg/dL 70-115 H = GLU) Blood Urea Nitrogen 11 mg/dL 8-23 N (test code = BUN) Creatinine (test 1.0 mg/dL 0.7-1.2 N code = CREAT) Calcium (test code 8.2 mg/dL 8.3-10.5 L = CA) BUN/Creatinine 11.0 Ratio (test code = BCRATIO) Anion Gap (test 11 mmol/L 7-16 N code = AGAP) Estimated GFR (test >60 eGFR (es timated code = GFR) mL/min/1.73m2 Glomerular Dagoberto tration Rate) is an est imated value,calculate d from the patient's s lenora creatinine usin g the MDRD equation.I t is NOT the patient 's actual GFR. The eGFR provides a more clinicallyusefu l measure of kidn ey disease than se rum creatinine alone.This calculation jagdeep es sex and race into account, if the informationis provided. If th e race is not provided , and the patient isAfrican-Ameri can, multiply by 1.2 12. If sex is not prov ided, and thepatient is female, multipl y by 0.742. Results for patients <18 ye ars ofage have not been validated by th e MDRD study and shoul d be interpretedwith caution.eGFR Re sult Interpretation: eGFR > or = 60 is in t he Normal RangeeGF R < 60 may mean kidney diseaseeGFR < 1 5 may mean kidney failureRange s recommended by the National Kidney Foundation,http ://nkd ep.nih.gov CBC with [id number] 06:49:00 Test Item Value Reference Range Interpretation Comments WBC (test code = WBC) 7.2 K/cumm 4.4-10.5 N RBC (test code = RBC) 3.37 M/cumm 4.10-5.70 L Hemoglobin (test code = HGB) 10.3 gm/dL 13.4-17.4 L Hematocrit (test code = HCT) 31.0 % 38.7-52.0 L MCV (test code = MCV) 92.1 fL 80-100 N MCH (test code = MCH) 30.5 pg 27.0-32.5 N MCHC (test code = MCHC) 33.1 g/dL 32.0-37.5 N RDW (test code = RDW) 12.0 % 11.5-14.5 N Platelet Count (test code = 302 K/cumm 140-440 N PLTCT) MPV (test code = MPV) 7.4 fL Diff Method (test code = DIFFM) Auto Neutrophil (test code = NEUT) 74.4 % 36-70 H Lymphocyte (test code = LYMPH) 12.1 % 12-44 N Monocyte (test code = MONO) 6.9 % 0-11 N Eosinophil (test code = EOS) 5.9 % 0-7 N Basophil (test code = BASO) 0.7 % 0-2 N Neutro Abs (test code = ANEUT) 5.4 K/cumm 1.6-7.4 N Lymph Abs (test code = ALYMPH) 0.9 K/cumm 0.5-4.6 N Miner Abs (test code = AMONO) 0.5 K/cumm 0.0-1.2 N Eos Abs (test code = AEOS) 0.42 K/cumm 0.00-0.74 N Baso Abs (test code = ABASO) 0.1 K/cumm 0.00-0.21 N POC Glucose, [id number] 21:12:00 Test Item Value Reference Range Interpretation Comments POC Glucose (test 209 mg/dL 70-115 H If you con pediatric occupational therapist your code = POCGLUC) patient crit ically ill, the [facility] Accu- Chek InformII meters hould not be used for Glu cose determinations. Draw a venous Glucose and send to the Main Lab for Analysis. POC Glucose, [id number] 16:02:00 Test Item Value Reference Range Interpretation Comments POC Glucose (test 138 mg/dL 70-115 H Notify RN or MDIf you code = POCGLUC) consider you r patient critically ill, the [facility] Accu-Chek InformII metershould not be used for Glucose determinations. Draw a venous Glucose and send to the Main Lab for Analysis. Basic Metabolic [id number] 08:50:00 Test Item Value Reference Range Interpretation Comments Sodium (test code = 138 mmol/L 135-145 N NA) Potassium (test 4.5 mmol/L 3.5-5.1 N code = K) Chloride (test code 102 mmol/L 98-105 N = CL) Carbon Dioxide 23 mmol/L 22-29 N (test code = CO2) Glucose (test code 167 mg/dL 70-115 H = GLU) Blood Urea Nitrogen 14 mg/dL 8-23 N (test code = BUN) Creatinine (test 1.1 mg/dL 0.7-1.2 N code = CREAT) Calcium (test code 8.2 mg/dL 8.3-10.5 L = CA) BUN/Creatinine 12.7 Ratio (test code = BCRATIO) Anion Gap (test 13 mmol/L 7-16 N code = AGAP) Estimated GFR (test >60 eGFR (es timated code = GFR) mL/min/1.73m2 Glomerular Dagoberto tration Rate) is an est imated value,calculate d from the patient's s lenora creatinine usin g the MDRD equation.I t is NOT the patient 's actual GFR. The eGFR provides a more clinicallyusefu l measure of kidn ey disease than se rum creatinine alone.This calculation jagdeep es sex and race into account, if the informationis provided. If th e race is not provided , and the patient isAfrican-Ameri can, multiply by 1.2 12. If sex is not prov ided, and thepatient is female, multipl y by 0.742. Results for patients <18 ye ars ofage have not been validated by th e MDRD study and shoul d be interpretedwith caution.eGFR Re sult Interpretation: eGFR > or = 60 is in t he Normal RangeeGF R < 60 may mean kidney diseaseeGFR < 1 5 may mean kidney failureRange s recommended by the National Kidney Foundation,http ://nkd ep.nih.gov CBC with [id number] 08:10:00 Test Item Value Reference Range Interpretation Comments WBC (test code = 9.2 K/cumm 4.4-10.5 N WBC) RBC (test code = 3.38 M/cumm 4.10-5.70 L RBC) Hemoglobin (test 10.3 gm/dL 13.4-17.4 L VERIFIED BY REPEAT code = HGB) TESTINGREAD MONA K LAB VALUESCALLED TO Raimundo KEENE RN @0809 ON 02/10/2018NO IN FO WAS GIVENFS Hematocrit (test 31.5 % 38.7-52.0 L code = HCT) MCV (test code = 93.3 fL 80-100 N MCV) MCH (test code = 30.4 pg 27.0-32.5 N MCH) MCHC (test code = 32.6 g/dL 32.0-37.5 N MCHC) RDW (test code = 12.4 % 11.5-14.5 N RDW) Platelet Count (test 305 K/cumm 140-440 N code = PLTCT) MPV (test code = 10.0 fL MPV) Diff Method (test Auto code = DIFFM) Neutrophil (test 74.8 % 36-70 H code = NEUT) Lymphocyte (test 11.7 % 12-44 L code = LYMPH) Monocyte (test code 8.2 % 0-11 N = MONO) Eosinophil (test 4.8 % 0-7 N code = EOS) Basophil (test code 0.5 % 0-2 N = BASO) Neutro Abs (test 6.9 K/cumm 1.6-7.4 N code = ANEUT) Lymph Abs (test code 1.1 K/cumm 0.5-4.6 N = ALYMPH) Miner Abs (test code 0.8 K/cumm 0.0-1.2 N = AMONO) Eos Abs (test code = 0.44 K/cumm 0.00-0.74 N AEOS) Baso Abs (test code 0.0 K/cumm 0.00-0.21 N = ABASO) POC Glucose, [id number] 07:24:00 Test Item Value Reference Range Interpretation Comments POC Glucose (test 153 mg/dL 70-115 H Notify RN or MDIf you code = POCGLUC) consider you r patient critically ill, the [facility] Accu-Chek InformII metershould not be used for Glucose determinations. Draw a venous Glucose and send to the Main Lab for Analysis. POC Glucose, [id number] 20:54:00 Test Item Value Reference Range Interpretation Comments POC Glucose (test 183 mg/dL 70-115 H If you con pediatric occupational therapist your code = POCGLUC) patient crit ically ill, the [place] Accu- Chek InformII meters hould not be used for Glu cose determinations. Draw a venous Glucose and send to the Main Lab for Analysis. POC Glucose, [id number] 16:40:00 Test Item Value Reference Range Interpretation Comments POC Glucose (test 156 mg/dL 70-115 H Notify RN or MDIf you code = POCGLUC) consider you r patient critically ill, the [place] Accu-Chek InformII metershould not be used for Glucose determinations. Draw a venous Glucose and send to the Main Lab for Analysis. POC Glucose, [id number] 11:18:00 Test Item Value Reference Range Interpretation Comments POC Glucose (test 249 mg/dL 70-115 H Notify RN or MDIf you code = POCGLUC) consider you r patient critically ill, the [facility] Accu-Chek InformII metershould not be used for Glucose determinations. Draw a venous Glucose and send to the Main Lab for Analysis. CBC with [id number] 07:45:00 Test Item Value Reference Range Interpretation Comments WBC (test code = WBC) 15.2 K/cumm 4.4-10.5 H RBC (test code = RBC) 3.22 M/cumm 4.10-5.70 L Hemoglobin (test code = HGB) 8.3 gm/dL 13.4-17.4 L Hematocrit (test code = HCT) 30.5 % 38.7-52.0 L MCV (test code = MCV) 94.7 fL 80-100 N MCH (test code = MCH) 25.8 pg 27.0-32.5 L MCHC (test code = MCHC) 27.3 g/dL 32.0-37.5 L RDW (test code = RDW) 12.1 % 11.5-14.5 N Platelet Count (test code = 257 K/cumm 140-440 N PLTCT) MPV (test code = MPV) 10.1 fL Diff Method (test code = DIFFM) Auto Neutrophil (test code = NEUT) 84.0 % 36-70 H Lymphocyte (test code = LYMPH) 6.4 % 12-44 L Monocyte (test code = MONO) 7.5 % 0-11 N Eosinophil (test code = EOS) 1.9 % 0-7 N Basophil (test code = BASO) 0.3 % 0-2 N Neutro Abs (test code = ANEUT) 12.8 K/cumm 1.6-7.4 H Lymph Abs (test code = ALYMPH) 1.0 K/cumm 0.5-4.6 N Miner Abs (test code = AMONO) 1.1 K/cumm 0.0-1.2 N Eos Abs (test code = AEOS) 0.28 K/cumm 0.00-0.74 N Baso Abs (test code = ABASO) 0.0 K/cumm 0.00-0.21 N [id number] 07:17:00 Test Item Value Reference Range Interpretation Comments Phosphorus (test code = PO4) 2.4 mg/dL 2.70-4.50 L Magnesium, [id number] 07:17:00 Test Item Value Reference Range Interpretation Comments Magnesium (test code = MG) 2.0 mg/dL 1.7-2.5 N Basic Metabolic [id number] 07:17:00 Test Item Value Reference Range Interpretation Comments Sodium (test code = 138 mmol/L 135-145 N NA) Potassium (test 4.2 mmol/L 3.5-5.1 N code = K) Chloride (test code 103 mmol/L 98-105 N = CL) Carbon Dioxide 23 mmol/L 22-29 N (test code = CO2) Glucose (test code 155 mg/dL 70-115 H = GLU) Blood Urea Nitrogen 14 mg/dL 8-23 N (test code = BUN) Creatinine (test 1.0 mg/dL 0.7-1.2 N code = CREAT) Calcium (test code 7.8 mg/dL 8.3-10.5 L = CA) BUN/Creatinine 14.0 Ratio (test code = BCRATIO) Anion Gap (test 12 mmol/L 7-16 N code = AGAP) Estimated GFR (test >60 eGFR (es timated code = GFR) mL/min/1.73m2 Glomerular Dagoberto tration Rate) is an est imated value,calculate d from the patient's s lenora creatinine usin g the MDRD equation.I t is NOT the patient 's actual GFR. The eGFR provides a more clinicallyusefu l measure of kidn ey disease than se rum creatinine alone.This calculation jagdeep es sex and race into account, if the informationis provided. If th e race is not provided , and the patient isAfrican-Ameri can, multiply by 1.2 12. If sex is not prov ided, and thepatient is female, multipl y by 0.742. Results for patients <18 ye ars ofage have not been validated by th e MDRD study and shoul d be interpretedwith caution.eGFR Re sult Interpretation: eGFR > or = 60 is in t he Normal RangeeGF R < 60 may mean kidney diseaseeGFR < 1 5 may mean kidney failureRange s recommended by the National Kidney Foundation,http ://nkd ep.nih.gov Vancomycin, [id number] 07:16:00 Test Item Value Reference Range Interpretation Comments Vanco Trou (test code = VANTR) 4.8 ug/mL 10.0-20.0 L POC Glucose, [id number] 06:59:00 Test Item Value Reference Range Interpretation Comments POC Glucose (test 181 mg/dL 70-115 H If you con pediatric occupational therapist your code = POCGLUC) patient crit ically ill, the [facility] Accu- Chek InformII meters hould not be used for Glu cose determinations. Draw a venous Glucose and send to the Main Lab for Analysis. [id number] 01:58:35AFTER HOURS SERVICE ON: 02/09/2018 1:58 AMCT Scan of the Abdomen and Pelvis With ContrastLocation [id number]: Abdominal wound infectionTechnique: Axial and reconstructed coronal scans were performed on [facility] scanner post IV contrast. One or more [...] surgical wound withseparation of the clips.POC Glucose, [id number] 00:40:00 Test Item Value Reference Range Interpretation Comments POC Glucose (test 127 mg/dL 70-115 H If you con pediatric occupational therapist your code = POCGLUC) patient crit ically ill, the [facility] Accu- Chek InformII meters hould not be used for Glu cose determinations. Draw a venous Glucose and send to the Main Lab for Analysis. Basic Metabolic [id number] 00:10:00 Test Item Value Reference Range Interpretation Comments Sodium (test code = 137 mmol/L 135-145 N NA) Potassium (test 4.4 mmol/L 3.5-5.1 N code = K) Chloride (test code 100 mmol/L 98-105 N = CL) Carbon Dioxide 24 mmol/L 22-29 N (test code = CO2) Glucose (test code 128 mg/dL 70-115 H = GLU) Blood Urea Nitrogen 16 mg/dL 8-23 N (test code = BUN) Creatinine (test 1.1 mg/dL 0.7-1.2 N code = CREAT) Calcium (test code 7.7 mg/dL 8.3-10.5 L = CA) BUN/Creatinine 14.5 Ratio (test code = BCRATIO) Anion Gap (test 13 mmol/L 7-16 N code = AGAP) Estimated GFR (test >60 eGFR (es timated code = GFR) mL/min/1.73m2 Glomerular Dagoberto tration Rate) is an est imated value,calculate d from the patient's s lenora creatinine usin g the MDRD equation.I t is NOT the patient 's actual GFR. The eGFR provides a more clinicallyusefu l measure of kidn ey disease than se rum creatinine alone.This calculation jagdeep es sex and race into account, if the informationis provided. If th e race is not provided , and the patient isAfrican-Ameri can, multiply by 1.2 12. If sex is not prov ided, and thepatient is female, multipl y by 0.742. Results for patients <18 ye ars ofage have not been validated by th [facility] MDRD study and tiffany bush be interpretedwith caution.eGFR Re sult Interpretation: eGFR > or = 60 is in t he Normal RangeeGF R < 60 may mean kidney diseaseeGFR < 1 5 may mean kidney failureRange s recommended by the National Kidney Foundation,http ://nkd ep.nih.gov CBC with [id number] 00:03:00 Test Item Value Reference Range Interpretation Comments WBC (test code = WBC) 16.3 K/cumm 4.4-10.5 H RBC (test code = RBC) 3.28 M/cumm 4.10-5.70 L Hemoglobin (test code = HGB) 10.0 gm/dL 13.4-17.4 L Hematocrit (test code = HCT) 31.4 % 38.7-52.0 L MCV (test code = MCV) 95.8 fL 80-100 N MCH (test code = MCH) 30.4 pg 27.0-32.5 N MCHC (test code = MCHC) 31.8 g/dL 32.0-37.5 L RDW (test code = RDW) 12.1 % 11.5-14.5 N Platelet Count (test code = 285 K/cumm 140-440 N PLTCT) MPV (test code = MPV) 9.8 fL Diff Method (test code = DIFFM) Auto Neutrophil (test code = NEUT) 85.8 % 36-70 H Lymphocyte (test code = LYMPH) 6.3 % 12-44 L Monocyte (test code = MONO) 6.5 % 0-11 N Eosinophil (test code = EOS) 1.1 % 0-7 N Basophil (test code = BASO) 0.3 % 0-2 N Neutro Abs (test code = ANEUT) 14.0 K/cumm 1.6-7.4 H Lymph Abs (test code = ALYMPH) 1.0 K/cumm 0.5-4.6 N Miner Abs (test code = AMONO) 1.1 K/cumm 0.0-1.2 N Eos Abs (test code = AEOS) 0.19 K/cumm 0.00-0.74 N Baso Abs (test code = ABASO) 0.0 K/cumm 0.00-0.21 N POC Glucose, [id number] 18:47:00 Test Item Value Reference Range Interpretation Comments POC Glucose (test 196 mg/dL 70-115 H If you con pediatric occupational therapist your code = POCGLUC) patient crit ically ill, the [facility] Accu- Chek InformII meters hould not be used for Glu cose determinations. Draw a venous Glucose and send to the Main Lab for Analysis. POC Glucose, [id number] 07:59:00 Test Item Value Reference Range Interpretation Comments POC Glucose (test 157 mg/dL 70-115 H If you con pediatric occupational therapist your code = POCGLUC) patient crit ically ill, the [facility] Accu- Chek InformII meters hould not be used for Glu cose determinations. Draw a venous Glucose and send to the Main Lab for Analysis. Comprehensive Metabolic [id number] 12:09:00 Test Item Value Reference Range Interpretation Comments Sodium (test code = 139 mmol/L 135-145 N NA) Potassium (test 4.3 mmol/L 3.5-5.1 N code = K) Chloride (test code 97 mmol/L 98-105 L = CL) Carbon Dioxide 27 mmol/L 22-29 N (test code = CO2) Glucose (test code 124 mg/dL 70-115 H = GLU) Blood Urea Nitrogen 20 mg/dL 8-23 N (test code = BUN) Creatinine (test 1.1 mg/dL 0.7-1.2 N code = CREAT) Calcium (test code 9.0 mg/dL 8.3-10.5 N = CA) Prot Total (test 7.3 g/dL 6.4-8.3 N code = TP) Albumin (test code 4.5 g/dL 3.5-5.2 N = ALB) A/G Ratio (test 1.6 Ratio code = AGRATIO) Globulin (test code 2.8 2.9-3.1 L = GLOB) Bili Total (test 0.2 mg/dL 0.1-0.9 N code = TBIL) Alk Phos (test code 96 U/L 40-129 N = APHOS) AST (test code = 15 U/L 1-40 N AST) ALT (test code = 13 U/L 1-41 N ALT) BUN/Creatinine 18.2 Ratio (test code = BCRATIO) Anion Gap (test 15 mmol/L 7-16 N code = AGAP) Estimated GFR (test >60 eGFR (es timated code = GFR) mL/min/1.73m2 Glomerular Dagoberto tration Rate) is an est imated value,calculate d from the patient's s lenora creatinine usin g the MDRD equation.I t is NOT the patient 's actual GFR. The eGFR provides a more clinicallyusefu l measure of kidn ey disease than se rum creatinine alone.This calculation jagdeep es sex and race into account, if the informationis provided. If th e race is not provided , and the patient isAfrican-Ameri can, multiply by 1.2 12. If sex is not prov ided, and thepatient is female, multipl y by 0.742. Results for patients <18 ye ars ofage have not been validated by th e MDRD study and shoul d be interpretedwith caution.eGFR Re sult Interpretation: eGFR > or = 60 is in t he Normal RangeeGF R < 60 may mean kidney diseaseeGFR < 1 5 may mean kidney failureRange s recommended by the National Kidney Foundation,http ://nkd ep.nih.gov CBC with [id number] 11:50:00 Test Item Value Reference Range Interpretation Comments WBC (test code = WBC) 9.1 K/cumm 4.4-10.5 N RBC (test code = RBC) 3.98 M/cumm 4.10-5.70 L Hemoglobin (test code = HGB) 12.2 gm/dL 13.4-17.4 L Hematocrit (test code = HCT) 36.8 % 38.7-52.0 L MCV (test code = MCV) 92.4 fL 80-100 N MCH (test code = MCH) 30.7 pg 27.0-32.5 N MCHC (test code = MCHC) 33.2 g/dL 32.0-37.5 N RDW (test code = RDW) 12.4 % 11.5-14.5 N Platelet Count (test code = 233 K/cumm 140-440 N PLTCT) MPV (test code = MPV) 10.2 fL Diff Method (test code = DIFFM) Auto Neutrophil (test code = NEUT) 71.1 % 36-70 H Lymphocyte (test code = LYMPH) 16.4 % 12-44 N Monocyte (test code = MONO) 5.9 % 0-11 N Eosinophil (test code = EOS) 5.9 % 0-7 N Basophil (test code = BASO) 0.7 % 0-2 N Neutro Abs (test code = ANEUT) 6.5 K/cumm 1.6-7.4 N Lymph Abs (test code = ALYMPH) 1.5 K/cumm 0.5-4.6 N Miner Abs (test code = AMONO) 0.5 K/cumm 0.0-1.2 N Eos Abs (test code = AEOS) 0.54 K/cumm 0.00-0.74 N Baso Abs (test code = ABASO) 0.1 K/cumm 0.00-0.21 N XR CHEST 2V, [id number] 10:18:04PA AND LATERAL CHEST:CLINICAL INFORMATION: K40.30: UNIL INGUINAL HERNIA, W OBST, W/O GANGR,NOT SPCF RECUR COMPARISONS: NoneFINDINGS: The lungs are well-expanded. No airspace consolidation is seen. Nopneumothorax or pleural effusion is present. The heart size is normal. There is rounded fullness in both monique. Mild central bronchialthickening is noted. The bones are grossly intact.IMPRESSION:Mild bilateral hilar fullness. The findings either represent prominentpulmonary arteries or hilar lymph nodes. Consider future chest CTfollow-up.Location: [id number]
--- NOTE | 2020-07-02 19:03 | EDPHYS ---
Physician Documentation [facility] Name: Zack Godinez Age: 70 yrs Sex: Male : 1950 Arrival Date: 07/02/2020 Time: 18:16 Bed 2 Private MD: Chandana Rendon R ED Physician Drew Erazo HPI: 07/02 18:55 This 70 yrs old Male presents to ER via Ambulatory with complaints of High maryan Blood Pressure, Bloody Stools, Dizziness. 18:55 The patient has elevated blood pressure and discovered this at home. Onset: The maryan symptoms/episode began/occurred 2 day(s) ago. Modifying factors: The symptoms are aggravated by activity, The symptoms are alleviated by remaining still. Associated signs and symptoms: Pertinent positives: dizziness, dyspnea, lightheadedness, weakness. Severity of symptoms: At its worst the blood pressure was mild, in the emergency department the blood pressure is unchanged. The patient has not experienced similar symptoms in the past. 18:56 The patient presents to the emergency department with rectal bleeding, a moderate maryan amount, melena. Abdominal pain: none is appreciated. Modifying factors: The symptoms are alleviated by nothing, the symptoms are aggravated by nothing. Associated signs and symptoms: Pertinent positives:. Severity of symptoms: At their worst the symptoms were mild moderate in the emergency department the symptoms are unchanged. Historical: - Allergies: 18:36 Codeine; jl7 18:36 [place]; jl7 - Home Meds: 18:36 verapamil 80 mg Oral tab 1 tab 3 times per day [Active]; losartan 100 mg Oral tab 1 tab jl7 once daily [Active]; benazepril 40 mg Oral tab 1 tab once daily [Active]; clopidogrel 75 mg Oral tab 1 tab once daily [Active]; furosemide 20 mg oral tab [Active]; glimepiride 4 mg Oral tab [Active]; - PMHx: 18:36 Diabetes - NIDDM; Hypertension; CVA; jl7 - Immunization history:: Adult Immunizations unknown. - Social history:: Smoking status: Patient denies any tobacco usage or history of. - Family history:: not pertinent. ROS: 18:56 Constitutional: Negative for fever, chills, and weight loss, Eyes: Negative for injury, maryan pain, redness, and discharge, ENT: Negative for injury, pain, and discharge, Neck: Negative for injury, pain, and swelling, Cardiovascular: Negative for chest pain, palpitations, and edema, Respiratory: Negative for shortness of breath, cough, wheezing, and pleuritic chest pain, Abdomen/GI: Negative for abdominal pain, nausea, vomiting, diarrhea, and constipation, Back: Negative for injury and pain, MS/Extremity: Negative for injury and deformity, Skin: Negative for injury, rash, and discoloration, Psych: Negative for depression, anxiety, suicide ideation, homicidal ideation, and hallucinations, Allergy/Immunology: Negative for hives, rash, and allergies, Endocrine: Negative for neck swelling, polydipsia, polyuria, polyphagia, and marked weight changes, Hematologic/Lymphatic: Negative for swollen nodes, abnormal bleeding, and unusual bruising. 18:56 Abdomen/GI: Positive for black/tarry stool, rectal bleeding. 18:56 : Negative for injury or acute deformity. 18:56 Skin: Positive for pallor. 18:56 Neuro: Positive for dizziness. Exam: 18:56 Constitutional: This is a well developed, well nourished patient who is awake, alert, maryan and in no acute distress. Head/Face: Normocephalic, atraumatic. ENT: Nares patent. No nasal discharge, no septal abnormalities noted. Tympanic membranes are normal and external auditory canals are clear. Oropharynx with no redness, swelling, or masses, exudates, or evidence of obstruction, uvula midline. Mucous membranes moist. Neck: Trachea midline, no thyromegaly or masses palpated, and no cervical lymphadenopathy. Supple, full range of motion without nuchal rigidity, or vertebral point tenderness. No Meningismus. Chest/axilla: Normal chest wall appearance and motion. Nontender with no deformity. No lesions are appreciated. Cardiovascular: Regular rate and rhythm with a normal S1 and S2. No gallops, murmurs, or rubs. Normal PMI, no JVD. No pulse deficits. Respiratory: Lungs have equal breath sounds bilaterally, clear to auscultation and percussion. No rales, rhonchi or wheezes noted. No increased work of breathing, no retractions or nasal flaring. Back: No spinal tenderness. No costovertebral tenderness. Full range of motion. Male : Normal genitalia with no discharge or lesions. MS/ Extremity: Pulses equal, no cyanosis. Neurovascular intact. Full, normal range of motion. Neuro: Awake and alert, GCS 15, oriented to person, place, time, and situation. Cranial nerves II-XII grossly intact. Motor strength 5/5 in all extremities. Sensory grossly intact. Cerebellar exam normal. Normal gait. Psych: Awake, alert, with orientation to person, place and time. Behavior, mood, and affect are within normal limits. 18:56 Eyes: Conjunctiva: pale. 18:56 Cardiovascular: Rate: normal, Rhythm: regular, Pulses: no pulse deficits are appreciated, Heart sounds: normal, Edema: is not appreciated, JVD: is not appreciated. 18:56 Abdomen/GI: Inspection: abdomen appears normal, Bowel sounds: normal, Palpation: nontender, Rectal exam: is unremarkable, Prostate: normal, rectal tone normal, Stool: guaiac positive, black, hemorrhoid(s), are not appreciated, mass, is not appreciated, swelling, is not appreciated, tenderness, is not appreciated, Liver: no appreciated palpable abnormalities, Hernia: not appreciated. 19:08 ECG was reviewed by the Attending Physician. [facility] Vital Signs: 18:29 BP 129 / 103; Pulse 94; Resp 17; Temp 98.3; Pulse Ox 99% ; Weight 89.81 kg; Height 5 jl7 ft. 6 in. (167.64 cm); Pain 0/10; 19:28 BP 126 / 62; Pulse 77; Resp 18; Pulse Ox 100% on R/A; mg2 20:50 BP 127 / 60; Pulse 61; Resp 18; Pulse Ox 99% ; ea 18:29 Body Mass Index 31.96 (89.81 kg, 167.64 cm) jl7 MDM: 18:43 Patient medically screened. [facility] 19:00 Differential diagnosis: gastritis, varices, Malignant HTN. Data reviewed: vital signs, [facility] nurses notes, lab test result(s), EKG, radiologic studies. Data interpreted: monitoring specialist: rate is 94 beats/min, rhythm is regular, Pulse oximetry: on room air is 99 %. Test interpretation: by ED physician or midlevel provider: ECG, plain radiologic studies. Counseling: I had a detailed discussion with the patient and/or guardian regarding: the historical points, exam findings, and any diagnostic results supporting the discharge/admit diagnosis, the presence of at least one elevated blood pressure reading (>120/80) during this emergency department visit, lab results, radiology results, the need for further work-up and treatment in the hospital. Physician consultation: Arnaud Dubon MD and will see patient in inpatient room. ED course: explained labs and plan to the patient. 07/02 18:54 Order name: Basic Metabolic Panel; Complete Time: 19:58 [facility] 07/02 18:54 Order name: CBC with Diff; Complete Time: 19:58 [facility] 07/02 18:54 Order name: LFT's; Complete Time: 19:58 [facility] 07/02 18:54 Order name: Magnesium; Complete Time: 19:58 [facility] 07/02 18:54 Order name: NT PRO-BNP; Complete Time: 19:58 [facility] 07/02 18:54 Order name: PT-INR [facility] 07/02 18:54 Order name: Troponin (emerg Dept Use Only); Complete Time: 19:58 [facility] 07/02 18:54 Order name: XRAY Chest (1 view) [facility] 07/02 18:54 Order name: Lipase; Complete Time: 19:58 [facility] 07/02 18:54 Order name: Type And Screen [facility] 07/02 18:54 Order name: Ptt, Activated 07/02 18:54 Order name: EKG; Complete Time: 18:55 [facility] 07/02 18:54 Order name: Cardiac monitoring; Complete Time: 19:08 [facility] 07/02 18:54 Order name: EKG - Nurse/Tech; Complete Time: 19:08 [facility] 07/02 18:54 Order name: IV Saline Lock; Complete Time: 19:09 [facility] 07/02 18:54 Order name: Labs collected and sent; Complete Time: 19:09 [facility] 07/02 18:54 Order name: O2 Per Protocol; Complete Time: 19:09 [facility] 07/02 18:54 Order name: O2 Sat Monitoring; Complete Time: 19:09 [facility] 07/02 18:54 Order name: IV Saline Lock - Large Bore; Complete Time: 19:27 [facility] 07/02 19:05 Order name: Misc. Order: bed rest, fall percautions; Complete Time: 19:26 maryan EC:08 Rate is 93 beats/min. Rhythm is regular. QRS [place] is Normal. DC interval is normal. QRS maryan interval is normal. QT interval is normal. No Q waves. T waves are Normal. No ST changes noted. Clinical impression: NSR w/ Non-specific ST/T Changes and No evidence of ischemia. Interpreted by me. Reviewed by me. Administered Medications: 19:26 Drug: ProTONIX 8 mg/hr Route: IV; Rate: 25 ml/hr; Site: right antecubital; mg2 20:10 Follow up: Response: No adverse reaction; IV Status: Infusion continued upon admission mg2 19:27 Drug: NS 0.9% 500 ml Route: IV; Rate: bolus; Site: right antecubital; mg2 20:10 Follow up: Response: No adverse reaction; IV Status: Completed infusion; IV Intake: mg2 500ml 19:27 Drug: ProTONIX 80 mg Route: IVP; Site: right antecubital; mg2 20:10 Follow up: Response: No adverse reaction mg2 20:02 Drug: NS 0.9% 1000 ml Route: IV; Rate: 125 ml/hr; Site: right antecubital; mg2 20:10 Follow up: Response: No adverse reaction; IV Status: Infusion continued upon admission mg2 Disposition: 07/02/20 19:03 Hospitalization ordered by Joann Tracey for Inpatient Admission. Preliminary diagnosis are Gastrointestinal hemorrhage, unspecified - upper, Weakness, Dizziness and giddiness, Essential (primary) hypertension, Type 2 diabetes mellitus. - Bed requested for Telemetry/MedSurg (Inpatient). - Status is Inpatient Admission. ea - Condition is Fair. - Problem is new. - Symptoms have improved. Critical care time excluding procedures: 19:03 Critical care time: Bedside Care: 20 minutes, Consultation: 10 minutes. Total time: 30 maryan minutes Signatures: Dispatcher [employer] EDAK Drew Erazo MD MD cha Attema, Lee, TELECOMMUNICATIONS OFFICER-C TELECOMMUNICATIONS OFFICER-Cla1 Li Cazares, RN RN Mary Degroot RN RN jl7 Radha Hameed RN RN ea [place]ose, Michele, ARELY RN mg2 Corrections: (The following items were deleted from the chart) 19:05 19:03 Hospitalization Ordered by Donavan Ramsey for Inpatient Admission. Preliminary maryan diagnosis is Gastrointestinal hemorrhage, unspecified - upper; Weakness; Dizziness and giddiness. Bed requested for Telemetry/MedSurg (Inpatient). Status is Inpatient Admission. Condition is Fair. Problem is new. Symptoms have improved. maryan 19:09 19:05 07/02/2020 19:03 Hospitalization Ordered by Donavan Ramsey for Inpatient maryan Admission. Preliminary diagnosis is Gastrointestinal hemorrhage, unspecified - upper; Weakness; Dizziness and giddiness; Essential (primary) hypertension; Type 2 diabetes mellitus. Bed requested for Telemetry/MedSurg (Inpatient). Status is Inpatient Admission. Condition is Fair. Problem is new. Symptoms have improved. maryan 20:26 19:09 07/02/2020 19:03 Hospitalization Ordered by Joann Tracey MD for Inpatient cg Admission. Preliminary diagnosis is Gastrointestinal hemorrhage, unspecified - upper; Weakness; Dizziness and giddiness; Essential (primary) hypertension; Type 2 diabetes mellitus. Bed requested for Telemetry/MedSurg (Inpatient). Status is Inpatient Admission. Condition is Fair. Problem is new. Symptoms have improved. maryan 20:52 20:26 07/02/2020 19:03 Hospitalization Ordered by Joann Tracey MD for Inpatient ea Admission. Preliminary diagnosis is Gastrointestinal hemorrhage, unspecified - upper; Weakness; Dizziness and giddiness; Essential (primary) hypertension; Type 2 diabetes mellitus. Bed requested for Telemetry/MedSurg (Inpatient). Status is Inpatient Admission. Condition is Fair. Problem is new. Symptoms have improved. cg
--- NOTE | 2020-07-02 19:03 | ER ---
Nurse's Notes [facility] Name: Zack Godinez Age: 70 yrs Sex: Male : 1950 Arrival Date: 07/02/2020 Time: 18:16 Bed 2 Private MD: Chandana Rendon R Diagnosis: Gastrointestinal hemorrhage, unspecified-upper;Weakness;Dizziness and giddiness;Essential (primary) hypertension;Type 2 diabetes mellitus Presentation: 07/02 18:29 Chief complaint: Patient states: Lightheaded, increased HR with exertion, high blood jl7 pressure and black tarry stools since Friday. Coronavirus screen: Client denies travel out of the [place] in the last 14 days. congestion, At this time, the client does not indicate any symptoms associated with coronavirus-19. Ebola Screen: No symptoms or risks identified at this time. Initial Sepsis Screen: Does the patient meet any 2 criteria? No. Patient's initial sepsis screen is negative. Does the patient have a suspected source of infection? No. Patient's initial sepsis screen is negative. Risk Assessment: Do you want to hurt yourself or someone else? Patient reports no desire to harm self or others. Onset of symptoms was June 27, 2020. Care prior to arrival: None. Transition of care: patient was not received from another setting of care. 18:29 Method Of Arrival: Ambulatory jl7 18:29 Acuity: COREY 2 jl7 Historical: - Allergies: 18:36 Codeine; jl7 18:36 [place]; jl7 - Home Meds: 18:36 verapamil 80 mg Oral tab 1 tab 3 times per day [Active]; losartan 100 mg Oral tab 1 tab jl7 once daily [Active]; benazepril 40 mg Oral tab 1 tab once daily [Active]; clopidogrel 75 mg Oral tab 1 tab once daily [Active]; furosemide 20 mg oral tab [Active]; glimepiride 4 mg Oral tab [Active]; - PMHx: 18:36 Diabetes - NIDDM; Hypertension; CVA; jl7 - Immunization history:: Adult Immunizations unknown. - Social history:: Smoking status: Patient denies any tobacco usage or history of. - Family history:: not pertinent. Screenin:40 Abuse screen: Denies threats or abuse. Nutritional screening: No deficits noted. rb1 Tuberculosis screening: No symptoms or risk factors identified. Fall Risk None identified. Assessment: 18:40 General: Appears in no apparent distress. comfortable, Behavior is calm, cooperative, rb1 Denies fever. General: Was taking Plavix but stopped taking it on Friday due to bloody stools.. Neuro: Level of Consciousness is awake, alert, obeys commands, Oriented to person, place, time, situation. Cardiovascular: Capillary refill < 3 seconds. Respiratory: Airway is patent Respiratory effort is even, unlabored, Respiratory pattern is regular, symmetrical. GI: Reports bloody stool, nausea, Formed stools. : Reports weak stream when urinating. Derm: Skin is pink, warm \T\ dry. 19:27 General: Appears in no apparent distress. comfortable, Behavior is calm, cooperative. mg2 Pain: Denies pain. Neuro: Level of Consciousness is awake, alert, obeys commands, Oriented to person, place, time, situation. GI: Reports bloody stool. EENT: No signs and/or symptoms were reported regarding the EENT system. 20:47 Reassessment: Patient and/or family updated on plan of care and expected duration. Pain ea level reassessed. Patient is alert, oriented x 3, equal unlabored respirations, skin warm/dry/pink. Report called to receiving nurse on second floor. Pt left ED via stretcher, pt tolerating well. Vital Signs: 18:29 BP 129 / 103; Pulse 94; Resp 17; Temp 98.3; Pulse Ox 99% ; Weight 89.81 kg; Height 5 jl7 ft. 6 in. (167.64 cm); Pain 0/10; 19:28 BP 126 / 62; Pulse 77; Resp 18; Pulse Ox 100% on R/A; mg2 20:50 BP 127 / 60; Pulse 61; Resp 18; Pulse Ox 99% ; ea 18:29 Body Mass Index 31.96 (89.81 kg, 167.64 cm) jl7 ED Course: 18:16 Patient arrived in ED. ag5 18:16 Chandana Rendon MD is Private Physician. ag5 18:32 Triage completed. jl7 18:36 Arm band placed on right wrist. jl7 18:40 Patient has correct armband on for positive identification. Bed in low position. Call rb1 light in reach. Side rails up X 1. Pulse ox on. NIBP on. 18:41 Pam Grigsby, RN is Primary Nurse. rb1 18:42 Drew Erazo MD is Attending Physician. maryan 19:02 Donavan Ramsey is Hospitalizing Provider. maryan 19:09 Joann Tracey MD is Hospitalizing Provider. maryan 19:20 XRAY Chest (1 view) In Process Unspecified. EDMS 19:24 Initial lab(s) drawn, by me, sent to lab. Inserted saline lock: 20 gauge in right tt3 antecubital area, using aseptic technique. Blood collected. 19:27 No provider procedures requiring assistance completed. mg2 19:43 Lab(s) recollected, by me, sent to lab. tt3 20:06 Inserted saline lock: 20 gauge in left antecubital area, using aseptic technique. mg2 ,using aseptic technique. by ARELY Mauricio. 20:41 Patient admitted, IV remains in place. mg2 Administered Medications: 19:26 Drug: ProTONIX 8 mg/hr Route: IV; Rate: 25 ml/hr; Site: right antecubital; mg2 20:10 Follow up: Response: No adverse reaction; IV Status: Infusion continued upon admission mg2 19:27 Drug: NS 0.9% 500 ml Route: IV; Rate: bolus; Site: right antecubital; mg2 20:10 Follow up: Response: No adverse reaction; IV Status: Completed infusion; IV Intake: mg2 500ml 19:27 Drug: ProTONIX 80 mg Route: IVP; Site: right antecubital; mg2 20:10 Follow up: Response: No adverse reaction mg2 20:02 Drug: NS 0.9% 1000 ml Route: IV; Rate: 125 ml/hr; Site: right antecubital; mg2 20:10 Follow up: Response: No adverse reaction; IV Status: Infusion continued upon admission mg2 Intake: 20:10 IV: 500ml; Total: 500ml. mg2 Outcome: 19:03 Decision to Hospitalize by Provider. [facility] 20:41 Admitted to Med/surg accompanied by tech, via wheelchair, room 214, with chart, Report mg2 called to ARELY Trevino 20:41 Condition: stable 20:41 Instructed on the need for admit, Demonstrated understanding of instructions. 20:52 Patient left the ED. ea Signatures: Dispatcher [employer] EDWY Drew Erazo MD MD cha Barber, Rebecca, RN RN rb1 Cunningham, Jahala, RN RN jl7 Radha Hameed RN RN ea Ross Christensen, RN RN mg2 Willow, Kali bloom5 Jadon Pena tt3
[2020-07-02] MEDS ORDERED: NA CHLORIDE 0.9% 250 ML ONE (19:21)
[2020-07-02] MEDS ORDERED: PANTOPRAZOLE 40 MG INJ ONE (19:21)
[2020-07-02] MEDS ORDERED: NA CHLORIDE 0.9% 1,000 ML ONE (19:21)
[2020-07-02] MEDS ORDERED: NA CHLORIDE 0.9% 500 ML ONE (19:21)
[2020-07-02 19:34] LABS: Absolute Lymphocytes (CBC) 1.2 K/uL (0.7-4.9); Basophils % 0.7 % (0-1.3); Lymphocytes % 9.8 % (15.3-44.8); MPV 10.1 fL (7.6-11.3); RBC Red Blood Cell Count 2.08 M/uL (4.33-5.43)
[2020-07-02 19:38] LABS: Hematocrit 19.5 % (39.6-49.0)
[2020-07-02 19:55] LABS: ALT/SGPT 15 U/L (12-78); AST/SGOT 14 U/L (15-37); Albumin 3.2 g/dL (3.4-5.0); Alkaline Phosphatase 83 U/L (45-117); BUN Blood Urea Nitrogen 48 mg/dL (7-18); Bicarbonate 22 mmol/L (21-32); Bilirubin Direct < 0.1 mg/dL (0-0.2); Bilirubin Total 0.2 mg/dL (0.2-1.0); Glucose Level 192 mg/dL (74-106); Lipase 184 U/L (73-393); Magnesium 2.5 mg/dL (1.8-2.4); NT PRO-BNP 158 pg/mL (<125); Potassium 3.8 mmol/L (3.5-5.1); Protein, Total 6.5 g/dL (6.4-8.2); Sodium Level 140 mmol/L (136-145); Troponin (Emerg Dept Use Only) < 0.02 ng/mL (0.0-0.045)
--- NOTE | 2020-07-02 20:00 | RAD REPORT ---
EXAM DESCRIPTION: RAD - Chest Single View - 07/02/2020 7:21 pm CLINICAL HISTORY: COUGH COMPARISON: Portable December 2016 TECHNIQUE: AP portable chest image was obtained 07/02/2020 7:21 pm . FINDINGS: Lungs are clear. Heart and vasculature are normal. No measurable pleural effusion and no p neumothorax. No acute bony abnormality seen. No acute aortic findings suspected. IMPRESSION: No acute cardiopulmonary process. No significant change from comparison.
--- NOTE | 2020-07-02 20:12 | P.HP ---
Certification for Inpatient Patient admitted to: Inpatient With expected LOS: >2 Midnights Patient will require the following post-hospital care: None Practitioner: I am a practitioner with admitting privileges, knowledge of patient current condition, hospital course, and medical plan of care. Services: Services provided to patient in accordance with Admission requirements found in Title 42 Section 412.3 of the Code of Federal Regulations <Uriel Parker - Last Filed: 07/02/20 20:05> Patient History Date of Service: 07/02/20 Primary Care Provider: Julieta Reason for admission: GIB History of Present Illness: 70-year-old male with history of hypertension, diabetes mellitus type 2, possible CVA in the past presents emergency department for dark stools for the last 5 days. Patient also reports some lightheadedness. Patient was evaluated in the emergency department and found to have melena and hemoglobin of 6.4. Stool was positive for occult blood. Patient's blood pressure remained stable throughout his visit in the emergency department. Patient was started on Protonix drip and given normal saline bolus. Patient has order for 2 units packed red blood cell transfusion. ED provider wishes to admit patient for further evaluation and management. When I saw the patient in the emergency department he was awake, alert, oriented x4. Patient reports that he has been having some lightheadedness and does report dark tarry stools but was formed stool. Patient be admitted for further evaluation and management and see Gastroenterology in the morning. - Past Medical/Surgical History Diabetic: Yes -: NIDDM -: HTN -: Questionable history of CVA -: CHOLECYSTECTOMY -: HERNIA REPAIR -: NECK AND BACK SURGERY Psychosocial/ Personal History: Patient lives at home with his - Social History Smoking Status: Never smoker Alcohol use: No CD- Drugs: No Caffeine use: Yes Place of Residence: Home <Uriel Parker - Last Filed: 07/02/20 20:05> Date of Service: 07/03/20 <Joann Tracey - Last Filed: 07/05/20 12:39> Allergies codeine Allergy (Verified 07/02/20 21:20) Nausea/Vomiting Home Medications: Benazepril HCl 40 mg PO DAILY 12/11/16 Clopidogrel Bisulfate [Plavix*] 75 mg PO DAILY 12/11/16 Glipizide/Metformin HCl [Glipizide-Metformin 5-500 mg] 1 tab PO BID 12/11/16 Verapamil HCl 80 mg PO TID 12/11/16 Furosemide 20 mg PO DAILY 07/03/20 Review of Systems 10-point ROS is otherwise unremarkable Gastrointestinal: Melena <Uriel Parker - Last Filed: 07/02/20 20:05> Physical Examination - Physical Exam General: Alert, In no apparent distress HEENT: Atraumatic, PERRLA, Other (Mucous membranes pale and dry) Neck: Supple, 2+ carotid pulse no bruit Respiratory: Clear to auscultation bilaterally, Normal air movement Cardiovascular: Regular rate/rhythm, Normal S1 S2 Gastrointestinal: Normal bowel sounds, No tenderness, No rebound, No guarding Musculoskeletal: No tenderness Integumentary: No rashes Neurological: Normal gait, Normal speech, Normal strength at 5/5 x4 extr, Normal tone, Normal affect Lymphatics: No axilla or inguinal lymphadenopathy - Studies Laboratory Data (last 24 hrs) 07/02/20 19:10: WBC 11.8 H, Hgb 6.4 L*, Hct 19.5 L*, Plt Count 215 07/02/20 19:10: Sodium 140, Potassium 3.8, BUN 48 H, Creatinine 1.75 H, Glucose 192 H, Magnesium 2.5 H, Total Bilirubin 0.2, AST 14 L, ALT 15, Alkaline Phosphatase 83, Lipase 184 <Uriel Parker - Last Filed: 07/02/20 20:05> Assessment and Plan - Plan Assessment Acute blood-loss anemia secondary to suspected upper GI bleed Diabetes mellitus type 2 Hypertension Acute kidney injury Plan Acute blood-loss anemia secondary to suspected upper GI bleed: Patient currently being transfused 2 units packed red blood cells for hemoglobin 6.4. Will repeat H&H 2 hr after 2nd unit. Will hold off on any DVT prophylaxis this time. Consult for Gastroenterology in place and has been contacted. Patient to remain NPO at this time. Will continue with IV fluid hydration and Protonix infusion. Appreciate further input from gastroenterology. DVT prophylaxis with SCDs. Diabetes mellitus type 2: A.c. HS Accu-Cheks, sliding scale insulin therapy. Hypertension: Hold all medications at this time as patient is having GI bleed and moderately low blood pressure Acute kidney injury: Continue rehydration. Recheck a BMP in the morning. Consult Nephrology if necessary. Discharge Plan: Home - Advance Directives Does patient have a Living Will: No Does patient have a Durable POA for Healthcare: No - Code Status/Comfort Care Code Status Assessed: Yes (Patient is full code) Critical Care: No Time Spent Managing Pts Care (In Minutes): 55 <Uriel Parker - Last Filed: 07/02/20 20:05> - Problems (Diagnosis) (1) GI bleed Current Visit: Yes Status: Acute (2) Diabetes mellitus Current Visit: No Status: Acute Qualifiers: Diabetes mellitus type: type 2 Diabetes mellitus assisted insulin use: without termite helper use Diabetes mellitus complication status: with unspecified complications (3) HTN (hypertension) Current Visit: No Status: Acute Qualifiers: Hypertension type: essential hypertension Qualified Code(s): I10 - Essential (primary) hypertension <Joann Tracey - Last Filed: 07/05/20 12:39> Date of Service: 07/03/20 Patient admitted with GI bleeding. Patient will be evaluated by endoscopy. Monitor H&H closely. Physical exam: Awake, alert, oriented, times person, place, and time. Cardiovascular exam: Regular rate and rhythm no murmurs Abdomen: Soft, nontender, nondistended and bowel sounds positive Assessment: 1. GI bleeding Plan: 1. IV fluids 2. Transfuse 2-3 units of packed red blood cells 3. PPI 4. GI consultation 5. GI and DVT prophylaxis <Joann Tracey - Last Filed: 07/05/20 12:39>
[2020-07-02] MEDS: INSULIN -REGULAR HUMAN 50 UNIT/0.5 ML ML SQ SCH (21:03)
[2020-07-02] MEDS: PANTOPRAZOLE INJ 80 MG in NA CHLORIDE 0.9% 250 ML IV SCH (21:03)
[2020-07-02] MEDS: NA CHLORIDE 0.9% 1,000 ML IV SCH (21:03)
[2020-07-02] MEDS ORDERED: ONDANSETRON 4 MG/2 ML VIAL IV PRN (21:03)
[2020-07-02] MEDS ORDERED: ACETAMINOPHEN 650MG/RECT SUPP RECT PRN (21:03)
[2020-07-02 21:16] VITALS: BMI 31.2
[2020-07-03] MEDS ORDERED: NA CHLORIDE 0.9% 250 ML ONE ×2 (01:20→04:52)
[2020-07-03] MEDS: PANTOPRAZOLE INJ 80 MG in NA CHLORIDE 0.9% 250 ML IV SCH ×2 (04:50→15:08)
[2020-07-03] MEDS ORDERED: PANTOPRAZOLE 40 MG INJ ONE (04:52)
[2020-07-03 07:03] LABS: Absolute Lymphocytes (CBC) 1.4 K/uL (0.7-4.9); Basophils % 0.8 % (0-1.3); Hematocrit 22.7 % (39.6-49.0); Lymphocytes % 13.1 % (15.3-44.8); MPV 9.5 fL (7.6-11.3); RBC Red Blood Cell Count 2.49 M/uL (4.33-5.43)
[2020-07-03 07:16] LABS: Protime INR 0.98
[2020-07-03] MEDS: INSULIN -REGULAR HUMAN 50 UNIT/0.5 ML ML SQ SCH ×4 (07:30→21:00)
[2020-07-03] MEDS: NA CHLORIDE 0.9% 1,000 ML IV SCH ×2 (09:33→17:03)
[2020-07-03] MEDS ORDERED: PNEUMOCOCCAL VACCINE 0.5 ML IMVAC ONE (11:00)
[2020-07-03] MEDS: METOCLOPRAMIDE 10 MG/2mL INJ IV SCH ×4 (11:00→20:49)
[2020-07-03 15:29] LABS: Absolute Lymphocytes (CBC) 1.3 K/uL (0.7-4.9); Basophils % 0.9 % (0-1.3); Hematocrit 22.8 % (39.6-49.0); Lymphocytes % 14.8 % (15.3-44.8); MPV 9.8 fL (7.6-11.3); RBC Red Blood Cell Count 2.48 M/uL (4.33-5.43)
[2020-07-03] MEDS: METFORMIN HCL 500 MG TAB PO SCH (16:08)
[2020-07-03] MEDS: glipiZIDE 5 MG TAB PO SCH (16:08)
[2020-07-03] MEDS ORDERED: LIDOCAINE 1% MPF 5 ML VIAL ONE (17:56)
[2020-07-03] MEDS ORDERED: propofoL 200 MG/20 ML VIAL IV ONE (17:56)
[2020-07-03] MEDS ORDERED: EPINEPHRINE/PF 1 MG/ML AMP ONE (18:08)
[2020-07-03] MEDS ORDERED: NA CHLORIDE 0.9% 1,000 ML ONE (18:17)
--- NOTE | 2020-07-03 18:23 | ENDO RPT ---
[address], [address] EGD PROCEDURE REPORT EXAM DATE: 07/03/2020 PATIENT NAME: Zack Godinez MR#: [id number] BIRTHDATE: 1950 ATTENDING: Arnaud Dubon Dr STATUS: outpatient [employer]ASTE [employer] PLANT OPERATOR: Sean Diehl CST and Susanna Hays RN INDICATIONS: The patient is a 70 yr old Male here for an EGD due to melenic bleeding, anemia, and nausea PROCEDURE PERFORMED: EGD with biopsy MEDICATIONS: Per Anesthesia. TOPICAL ANESTHETIC: none CONSENT: The patient understands the risks and benefits of the procedure and understands that these risks include, but are not limited to: sedation, allergic reaction, infection, perforation and/or bleeding. Alternative means of evaluation and treatment include, among others: physical exam, x-rays, and/or surgical intervention. The patient elects to proceed with this endoscopic procedure. DESCRIPTION OF PROCEDURE: During intra-op preparation period all mechanical medical equipment was checked for proper function. Hand hygiene and appropriate measures for infection prevention was taken. Procedure, possible complications, and alternatives including but not limited to the possibility of bleeding, perforation, tear, infection, sepsis, need for surgery, need for blood transfusion, and anesthesia related complications were explained to the patient. After the risks, benefits and alternatives of the procedure were thoroughly explained, Informed consent was verified, confirmed and timeout was successfully executed by the treatment team. The patient was placed in the left lateral position. The patient was anesthetized with topical anesthesia. Through the anesthetized oropharyngeal area, the scope was passed without any difficulty. The Pentax EG-[id number] ([id number]) endoscope was introduced through the mouth and advanced to the third portion of the duodenum. Retroflexed views revealed no abnormalities. The gastroscope was then slowly withdrawn and removed. Moderate atrophic gastritis was found in the antrum. Multiple biopsies were obtained and sent to pathology. Small bowel biopsies obtained. No active bleeding nor stigmata of recent hemorrhage noted. ADVERSE EVENTS: There were no complications. IMPRESSIONS: 1. Moderate atrophic gastritis in the antrum, s/p biopsies 2. Small bowel biopsies obtained 3. No active bleeding nor stigmata of recent hemorrhage noted RECOMMENDATIONS: 1. await biopsy results 2. acid suppression therapy 3. colonoscopy REPEAT EXAM: Arnaud Dubon Dr eSigned: Arnaud Dubon Dr 07/03/2020 6:23 PM cc: Joann Tracey CPT CODES: ICD9 CODES: PATIENT NAME: Zack Godinez MR#: [id number]
[2020-07-03] MEDS ORDERED: GOLYTELY 4000 ML PO SCH (20:00)
[2020-07-03] MEDS ORDERED: MAGNESIUM CITRATE 300 ML BOT PO SCH (20:00)
[2020-07-03] MEDS: VERAPAMIL HCL 80 MG TABLET PO SCH (20:44)
[2020-07-03] MEDS ORDERED: METFORMIN HCL PO SCH (21:00)
[2020-07-03] MEDS ORDERED: GLIPIZIDE PO SCH (21:00)
--- NOTE | 2020-07-03 23:44 | CON ---
Date of Consultation: 07/03/2020 Reason For Consultation: GI bleed with melena with anemia. History Of Present Illness: The patient is a 70-year-old male with history of diabetes, hypertension, possible stroke in the past who presented to the hospital with melena for 6 days with nausea and some lightheadedness, but he denied any emesis or abdominal pain. No hematochezia or hematemesis or coffee- grounds emesis. The patient states his last colonoscopy was approximately 5 years ago at [facility] in [place], [place], and he had 3 polyps removed at that time. He has a family history of colon cancer in his sister at the age of 57. Past Medical History: Significant for diabetes, hypertension, possible stroke in the past, laparoscopic cholecystectomy, hernia repair, neck and back surgeries. Current Medications: In the hospital include Tylenol, Lasix, glipizide, Novolin insulin, Glucophage, Zofran, pantoprazole, verapamil. Allergies: TO CODEINE. Social History: , 3 children. No tobacco, quit 50 years ago. Rare alcohol, 1 beer maybe a month. Family History: Father of cancer, unknown type. His father left when he was younger. Mother with complications of diabetes. Sister at the age 57 from colon cancer. Review of Systems: The patient has melena, nausea, lightheadedness, but no abdominal pain, hematemesis, coffee-grounds emesis, hemoptysis, hematuria, dysuria, or polydipsia. No shortness of breath, chest pain, muscle aches, joint aches, backaches, depression, or anxiety. Physical Examination: Vital Signs: The patient is 5 feet 6 inches, 183 pounds, BMI of 31.3 kg/sq m, temperature 98.1 degrees Fahrenheit, pulse 81, respirations 16, blood pressure 156/67, O2 saturation of 100%. HEENT: Normocephalic, atraumatic, anicteric. Pupils are equal, round, and reactive to light. Extraocular movements are intact. Oropharynx is clear. Neck: Supple. No masses. Respirations: Clear to auscultation bilaterally. Cardiac: Regular rate and rhythm. No gallops or rubs. Abdomen: Positive bowel sounds. Soft, nontender, nondistended. No hepatosplenomegaly. Extremities: No clubbing, cyanosis, or edema. 2+ pulses. Neurologic: Alert and oriented x3. Grossly nonfocal. 5/5 motor strength. Sensation intact to light touch. Laboratory Data: The patient has white count of 8.7 down from 11.8 on admission, hemoglobin of 7.6 up from 6.4 after 2 units of packed RBCs, hematocrit 22.8, MCV of 92, platelet count of 198, polys of 76%, lymphs 16%, monocytes 7%, eosinophils 3%. The patient has a PT of 11.6, INR of 1.0, PTT of 24.7. The patient has a sodium of 144, potassium 4.0, chloride 116, bicarb 23, BUN 35, creatinine 1.5, glucose 110, calcium 7.6. Chest x-ray was negative. Impression: 1. Gastrointestinal bleed and melena for 6 days with anemia. Hemoglobin down to 6.4 on admission, after 2 units up to 7.6. Nausea and lightheadedness. No abdominal pain or emesis. Last colonoscopy was approximately 5 years ago at [facility] in [place], [place] with 3 colon polyps removed. Family history of colon cancer in sister at the age of 57. 2. History of hypertension, diabetes, possible stroke, laparoscopic cholecystectomy, hernia repair, neck and back surgeries. Recommendation: 1. PPI therapy. 2. Serial H and H, and transfuse p.r.n. 3. EGD & as indicated colonoscopy. 4. N.p.o. JIM/GABY Voice ID: [id number] Report ID: [id number] MARIANA
[2020-07-04] MEDS: NA CHLORIDE 0.9% 1,000 ML IV SCH ×2 (00:32→03:03)
[2020-07-04] MEDS: PANTOPRAZOLE INJ 80 MG in NA CHLORIDE 0.9% 250 ML IV SCH ×3 (01:14→21:00)
[2020-07-04] MEDS: INSULIN -REGULAR HUMAN 50 UNIT/0.5 ML ML SQ SCH ×4 (03:00→18:00)
[2020-07-04] MEDS: METOCLOPRAMIDE 10 MG/2mL INJ IV SCH ×2 (03:00→08:35)
--- NOTE | 2020-07-04 05:38 | P.PN ---
Subjective Date of Service: 07/03/20 PATIENT STILL WITH MELANOTIC STOOL. GI TO SEE FOR EGD. Review of Systems 10-point ROS is otherwise unremarkable Physical Examination - Vital Signs Temperature: 97.7 F Blood Pressure: 145/66 Pulse: 67 Respirations: 18 Pulse Ox (%): 98 - Physical Exam General: Alert, In no apparent distress, Oriented x3 Respiratory: Clear to auscultation bilaterally, Normal air movement Cardiovascular: Regular rate/rhythm, Normal S1 S2, No murmurs Gastrointestinal: Normal bowel sounds, Soft and benign, Non-distended, No tenderness Musculoskeletal: No clubbing, No swelling, No tenderness Neurological: Normal tone, Sensation intact, Cranial nerves 3-12 intact - Studies Medications List Reviewed: Yes Assessment & Plan - Problems (Diagnosis) (1) GI bleed Current Visit: Yes Status: Acute (2) Diabetes mellitus Current Visit: No Status: Acute Qualifiers: Diabetes mellitus type: type 2 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 CONTINUE WITH IV HYDRATION AND PPI DRIP 2. CONTINUE WITH IV ANTIBIOTICS 3. CONTINUE WITH PAIN CONTROL 4. NPO 5. GI CONSULTATION 6. MONITOR LFTS AND LIPASE ALONG WITH ELECTROLYTES AND SERIAL H&H. 7. GI AND DVT PROPHYLAXIS Discharge Plan: Home Plan to discharge in: Greater than 2 days - Advance Directives Does patient have a Living Will: No Does patient have a Durable POA for Healthcare: No - Code Status/Comfort Care Code Status Assessed: Yes Code Status: Full Code Critical Care: No Time Spent Managing PTS Care (In Minutes): 30
[2020-07-04 05:51] LABS: Basophils % 0.7 % (0-1.3); Hematocrit 23.5 % (39.6-49.0); Lymphocytes % 12.8 % (15.3-44.8); MPV 9.4 fL (7.6-11.3); RBC Red Blood Cell Count 2.59 M/uL (4.33-5.43)
[2020-07-04 06:06] LABS: Potassium 3.8 mmol/L (3.5-5.1)
[2020-07-04] MEDS ORDERED: KCL 20 MEQ/100 mL IVPB 20 MEQ/100 ML BAG IV SCH (07:00)
[2020-07-04] MEDS: METFORMIN HCL 500 MG TAB PO SCH ×2 (08:00→16:29)
[2020-07-04] MEDS: glipiZIDE 5 MG TAB PO SCH ×2 (08:00→16:29)
[2020-07-04] MEDS: VERAPAMIL HCL 80 MG TABLET PO SCH ×2 (08:33→22:04)
[2020-07-04] MEDS: FUROSEMIDE 20 MG TABLET PO SCH (08:33)
[2020-07-04] MEDS: D5 0.45 NS 1,000 ML IV SCH ×2 (09:22→23:18)
[2020-07-04] MEDS ORDERED: EPINEPHRINE/PF 1 MG/ML AMP ONE (16:08)
[2020-07-04] MEDS ORDERED: NA CHLORIDE 0.9% 1,000 ML ONE (16:41)
[2020-07-04] MEDS ORDERED: LIDOCAINE 1% MPF 5 ML VIAL ONE (16:59)
[2020-07-04] MEDS ORDERED: propofoL 200 MG/20 ML VIAL IV ONE (16:59)
--- NOTE | 2020-07-04 17:57 | ENDO RPT ---
[address], [address] COLONOSCOPY PROCEDURE REPORT EXAM DATE: 07/04/2020 PATIENT NAME: Zack Godinez MR #: [id number] BIRTHDATE: 1950 ATTENDING: Arnaud Dubon Dr STATUS: inpatient SKIP HOIST OPERATOR: Tabby Cifuentes RN and Lenora Obregon RN INDICATIONS: The patient is a 70 yr old Male here for a colonoscopy due to melenic bleeding and anemia PROCEDURE PERFORMED: Colonoscopy MEDICATIONS: Per Anesthesia. ESTIMATED BLOOD LOSS: None CONSENT: The patient understands the risks and benefits of the procedure and understands that these risks include, but are not limited to: sedation, allergic reaction, infection, perforation and/or bleeding. Alternative means of evaluation and treatment include, among others: physical exam, x-rays, and/or surgical intervention. The patient elects to proceed with this endoscopic procedure. DESCRIPTION OF PROCEDURE: During intra-op preparation period all mechanical medical equipment was checked for proper function. Hand hygiene and appropriate measures for infection prevention was taken. Procedure, possible complications, alternatives including, but not limited to possibility of bleeding, perforation, tear, infection, sepsis, need for surgery, need for blood transfusion, were explained to the patient. After the risks, benefits and alternatives of the procedure were thoroughly explained, Informed consent was verified, confirmed and timeout was successfully executed by the treatment team. The patient was placed in the left lateral position. A digital rectal exam was performed and revealed no abnormalities of the rectum. After appropriate level of anesthesia, the scope was passed. The EC-[id number] ([id number]) endoscope was introduced through the anus and advanced to the terminal ileum which was intubated for a short distance. The quality of the prep was fair. The instrument was then slowly withdrawn as the colon was fully examined. Scope withdrawal time was 8 minutes. COLON FINDINGS: Moderate sized internal hemorrhoids were found. Retroflexed views revealed medium hemorrhoids. The scope was then completely withdrawn from the patient and the procedure terminated. ADVERSE EVENTS: There were no complications. IMPRESSIONS: 1. Moderate sized internal hemorrhoids 2. Intubation to terminal ileum RECOMMENDATIONS: 1. Small Bowel Follow Through 2. pillcam / capsule endoscopy RECALL: Return in 10 year(s) for Colonoscopy. Arnaud Dubon Dr eSigned: Arnaud Dubon Dr 07/04/2020 5:56 PM cc: Joann Tracey CPT CODES: ICD9 CODES: PATIENT NAME: Zack Godinez MR#: [id number]
[2020-07-04] MEDS ORDERED: D50W 25 GM/50 ML SYRINGE/VIAL IV PRN (22:26)
[2020-07-05] MEDS ORDERED: GLUCAGON 1 MG/VIAL IM PRN (02:14)
[2020-07-05] MEDS ORDERED: D50W 25 GM/50 ML SYRINGE/VIAL IV PRN (02:14)
[2020-07-05] MEDS: PANTOPRAZOLE INJ 80 MG in NA CHLORIDE 0.9% 250 ML IV SCH ×2 (03:49→04:14)
[2020-07-05] MEDS: D5 0.45 NS 1,000 ML IV SCH (03:50)
[2020-07-05 04:43] LABS: Basophils % 0.5 % (0-1.3); Hematocrit 23.7 % (39.6-49.0); Lymphocytes % 12.4 % (15.3-44.8); MPV 9.7 fL (7.6-11.3); Potassium 3.8 mmol/L (3.5-5.1); RBC Red Blood Cell Count 2.61 M/uL (4.33-5.43)
--- NOTE | 2020-07-05 06:40 | RAD REPORT ---
EXAM DESCRIPTION: RAD - Small Bowel Series - 07/04/2020 9:37 pm CLINICAL HISTORY: occult GI bleeding COMPARISON: <Comparisons> FINDINGS: Forest Management Professor film shows a nonspecific bowel gas pattern. No obstruction or free air. No suspiciou s calcifications. Gastric size and mucosal fold pattern are normal. No delay in transit of contrast into the small og l. Small bowel is normal in diameter with no mucosal fold thickening. No intrinsic or extrinsic mass identifiable. Terminal ileum has normal appearance. Transit time to the colon is 1 hour, normal. IMPRESSION: Normal small bowel series.
[2020-07-05] MEDS: INSULIN -REGULAR HUMAN 50 UNIT/0.5 ML ML SQ SCH ×3 (07:30→11:30)
[2020-07-05] MEDS: METFORMIN HCL 500 MG TAB PO SCH (08:57)
[2020-07-05] MEDS: FUROSEMIDE 20 MG TABLET PO SCH (08:57)
[2020-07-05] MEDS: glipiZIDE 5 MG TAB PO SCH (08:58)
[2020-07-05] MEDS: VERAPAMIL HCL 80 MG TABLET PO SCH (08:59)
[2020-07-05 09:00] VITALS: BP 158/70
[2020-07-05] MEDS ORDERED: POTASSIUM CL SA 10 MEQ TAB PO ONE (09:00)
[2020-07-05 10:44] VITALS: O2SAT 99
[2020-07-05 11:02] VITALS: TEMP 97.9
--- NOTE | 2020-07-05 12:42 | P.PN ---
Subjective Date of Service: 07/04/20 Patient doing well with no new complaints. EGD with atrophic gastritis. Continue monitoring H&H. Review of Systems 10-point ROS is otherwise unremarkable Physical Examination - Vital Signs Temperature: 97.9 F Blood Pressure: 158/70 Pulse: 67 Respirations: 18 Pulse Ox (%): 99 - Physical Exam General: Alert, In no apparent distress, Oriented x3 Respiratory: Clear to auscultation bilaterally, Normal air movement Cardiovascular: Regular rate/rhythm, Normal S1 S2, No murmurs Gastrointestinal: Normal bowel sounds, Soft and benign, Non-distended, Tenderness (Epigastric tenderness) Musculoskeletal: No clubbing, No swelling, No tenderness Neurological: Normal strength at 5/5 x4 extr, Sensation intact, Cranial nerves 3-12 intact - Studies Medications List Reviewed: Yes Assessment & Plan - Problems (Diagnosis) (1) GI bleed Current Visit: Yes Status: Acute (2) Diabetes mellitus Current Visit: No Status: Acute Qualifiers: Diabetes mellitus type: type 2 Diabetes mellitus correction insulin 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 Continue with IV fluids 2. PPI drip 3. Scheduled for colonoscopy in the morning 4. Monitor hemodynamics closely 5. Monitor H&H 6. GI and DVT prophylaxis Discharge Plan: Home Plan to discharge in: 48 Hours - Advance Directives Does patient have a Living Will: No Does patient have a Durable POA for Healthcare: No - Code Status/Comfort Care Code Status: Full Code Critical Care: No Time Spent Managing PTS Care (In Minutes): 30
--- NOTE | 2020-07-05 12:46 | P.DS ---
Discharge Date: 07/05/20 Primary Care Provider: Julieta Reason for Admission: GIB Consultations: GI; Dr. Dubon - Problems (1) GI bleed Current Visit: Yes Status: Acute (2) Diabetes mellitus Current Visit: No Status: Acute Qualifiers: Diabetes mellitus type: type 2 Diabetes mellitus fdc insulin use: without fdc use Diabetes mellitus complication status: with unspecified complications (3) HTN (hypertension) Current Visit: No Status: Acute Qualifiers: Hypertension type: essential hypertension Qualified Code(s): I10 - Essential (primary) hypertension Brief History of Present Illness: 70-year-old male with history of hypertension, diabetes mellitus type 2, possible CVA in the past presents emergency department for dark stools for the last 5 days. Patient also reports some lightheadedness. Patient was evaluated in the emergency department and found to have melena and hemoglobin of 6.4. Stool was positive for occult blood. Patient's blood pressure remained stable throughout his visit in the emergency department. Patient was started on Protonix drip and given normal saline bolus. Patient has order for 2 units packed red blood cell transfusion. ED provider wishes to admit patient for further evaluation and management. When I saw the patient in the emergency department he was awake, alert, oriented x4. Patient reports that he has been having some lightheadedness and does report dark tarry stools but was formed stool. Patient be admitted for further evaluation and management and see Gastroenterology in the morning. Hospital Course: Patient was given 3 units of packed red blood cells. Patient's hemoglobin is stable. Patient EGD revealed gastritis and colonoscopy revealed internal hemorrhoids. Clinically, patient is doing well with no new complaints. At this time, patient is stable for discharge home. Vital Signs/Physical Exam: Temp Pulse Resp BP Pulse Ox 97.9 F 67 18 158/70 H 99 07/05/20 12:41 07/05/20 12:41 07/05/20 12:41 07/05/20 12:41 07/05/20 12:41 General: Alert, In no apparent distress, Oriented x3 Laboratory Data at Discharge: WBC 8.1 K/uL (4.3-10.9) 07/05/20 04:10 Hgb 8.1 g/dL (13.6-17.9) L 07/05/20 04:10 Hct 23.7 % (39.6-49.0) L 07/05/20 04:10 Plt Count 186 K/uL (152-406) 07/05/20 04:10 PT 11.8 SECONDS (9.5-12.5) 07/04/20 05:36 INR 1.00 07/04/20 05:36 APTT 25.6 SECONDS (24.3-36.9) 07/04/20 05:36 Sodium 143 mmol/L (136-145) 07/05/20 04:10 Potassium 3.8 mmol/L (3.5-5.1) 07/05/20 04:10 BUN 14 mg/dL (7-18) 07/05/20 04:10 Creatinine 1.23 mg/dL (0.55-1.3) 07/05/20 04:10 Glucose 128 mg/dL (74-106) H 07/05/20 04:10 Magnesium 2.5 mg/dL (1.8-2.4) H 07/02/20 19:10 Total Bilirubin 0.2 mg/dL (0.2-1.0) 07/02/20 19:10 AST 14 U/L (15-37) L 07/02/20 19:10 ALT 15 U/L (12-78) 07/02/20 19:10 Alkaline Phosphatase 83 U/L (45-117) 07/02/20 19:10 Lipase 184 U/L (73-393) 07/02/20 19:10 Home Medications: Benazepril HCl 40 mg PO DAILY 12/11/16 Clopidogrel Bisulfate [Plavix*] 75 mg PO DAILY 12/11/16 Glipizide/Metformin HCl [Glipizide-Metformin 5-500 mg] 1 tab PO BID 12/11/16 Verapamil HCl 80 mg PO TID 12/11/16 Furosemide 20 mg PO DAILY 07/03/20 Pantoprazole Sodium [Protonix] 40 mg PO Q12H #60 tablet. 07/05/20 New Medications: Pantoprazole Sodium [Protonix] 40 mg PO Q12H #60 tablet. Patient Discharge Instructions: OK TO DC IV AND DC HOME. FOLLOW-UP WITH PRIMARY CARE PROVIDER IN 1-2 WEEKS. FOLLOW-UP WITH GI IN 1-2 WEEKS. Hold Plavix for 1 week. RETURN TO THE ER IF symptoms worsen. CALL or TEXT DR. WU AT [phone] IF ANY QUESTIONS REGARDING HOSPITAL STAY. PLEASE CALL THE FLOOR AT [phone] IF ANY MEDICATION OR NURSING QUESTIONS. Diet: AHA Activity: Fall precautions Time spent managing pt's care (in minutes): 30
--- NOTE | 2020-07-05 12:54 | P.PN ---
Subjective Date of Service: 07/05/20 Primary Care Provider: Julieta Chief Complaint: GIB, melena, anemia Subjective: Improving (Hgb up to 8.1 today. No melena reported. Urinalysis was not done. Small bowel series was negative.) Review of Systems 10-point ROS is otherwise unremarkable General: Weakness (Improved. 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
[2020-07-05 13:56] LABS: Urine Appearance CLEAR; Urine Bilirubin NEGATIVE (NEG); Urine Blood NEGATIVE (NEG); Urine Color YELLOW; Urine Glucose NEGATIVE (NEG); Urine Protein NEGATIVE (NEG); Urine Specific Gravity <=1.005 (1.005-1.030); Urine Urobilinogen 0.2 mg/dL (0.2-1.0)
[2020-07-05 14:15] LABS: Urine Bacteria NONE SEEN /HPF (NONE SEEN); Urine Culture Reflex Order NOT NEEDED; Urine RBC <5 /HPF (NONE SEEN)
== END 2020-07-05 13:58 | disposition home or self-care (01) | DRG 393 ==
LOC: ER 18:11 → ERHOLD 19:59 → 2ND 20:42
PROVIDERS: ADMIT Hospitalist; ATTEND Hospitalist
PROC: 30233N1 Transfusion of Nonautologous Red Blood Cells into Peripheral Vein, Percutaneous Approach (ICD-10-PCS; 2020-07-02)
PROC: 0DB78ZX Excision of Stomach, Pylorus, Via Natural or Artificial Opening Endoscopic, Diagnostic (ICD-10-PCS; 2020-07-04)
PROC: 0DJD8ZZ Inspection of Lower Intestinal Tract, Via Natural or Artificial Opening Endoscopic (ICD-10-PCS; principal; 2020-07-04 16:45)
DX: K64.8 Other hemorrhoids (principal); K29.41 Chronic atrophic gastritis with bleeding; D62 Acute posthemorrhagic anemia; N17.9 Acute kidney failure, unspecified; K92.1 Melena; I10 Essential (primary) hypertension; E11.9 Type 2 diabetes mellitus without complications; Z90.49 Acquired absence of other specified parts of digestive tract; Z88.5 Allergy status to narcotic agent; Z79.02 Long term (current) use of antithrombotics/antiplatelets; Z79.84 Long term (current) use of oral hypoglycemic drugs; Z86.73 Personal history of transient ischemic attack (TIA), and cerebral infarction without residual deficits; Z79.899 Other long term (current) drug therapy; Z11.59 Encounter for screening for other viral diseases
CPT/HCPCS: 36415; 36430; 71045; 74250; 80048; 80076; 81001; 82947; 83690; 83735; 83880; 84484; 85025; 85610; 85730; 86850; 86900; 86901; 88305; 88312; 93005; 96365; 99285; C9113; J0171; J2704; J2765; J3480; J7030; J7040; J7050; J7799; P9016; U0002

== ENCOUNTER 2022-06-21 12:27 | Emergency (ER) | payer OTHER ==
--- OUTSIDE RECORDS SUMMARY | 2022-06-21 12:32 | XMS REPORT | Continuity of Care Document ---
:1950 Author Organization [facility] t Address [address] [place] [address] Care Team Providers Name Role Phone CHRIS AMADOR Primary Care Physician Unavailable Luann Hahn Attending Clinician Unavailable Ajibade_O_AH Attending Clinician Unavailable Ige-Odunuga_J_AH Attending Clinician Unavailable ALEXANDRA BELL M.D., ALEXANDRA CANTU M.D. Attending Clin ician Unavailable MATT LUONG M.D., MATT Holguin M.D. Attending Clinician Unav ailable Ajibade_O_AH Admitting Clinician Unavailable Ige-Odunuga_J_AH Admitting Clinician Unavailable ALEXANDRA BELL M.D., ALEXANDRA Ashley Admitting Clinician UnaMATT Huang M.D., MATT Holguin Admitting Clinician Unavailabl e Payers Payer Name Policy Type Policy Number Effective Date Expiration Date [facility] [place] - [id number] 2019 [employer] 00:00:00 (MEDICARE REPLACEMENT/ADVANT AGE - HMO) Problems Condition Condition Condition Status Onset Resolution Last Treating Co mments Source Name Details Category Date Date Treatment Clinician Date Complicati Complicati Problem Active [place] [facility] due to on Due to 03-20 Fami ly diabetes Diabetes 00:00: Practi c mellitus Mellitus 00 e Chronic Chronic Problem Active [place] kidney Kidney 03-20 Family disease Disease 00:00: Practic due to Due to 00 e type 2 Type 2 diabetes Diabetes mellitus Mellitus Hyperparat Hyperparat Problem Active 2021-0 [place] hyroidism hyroidism 01-04 Fami ly due to Due to 00:00: Practic renal Renal 00 e insufficie Insufficie ncy ncy 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 1-04 Family 00:00: Practic 00 e Hypertensi Hypertensi Problem Active [place] [facility] ve heart ve Heart 1-04 Family and renal and Renal 00:00: Prac tic disease Disease 00 e with with (congestiv (Congestiv e) heart e) Heart failure Failure Helicobact Helicobact Problem Active 2019-11 [place] [facility] er er 2-07 Family pylori-ass Pylori-ass 00:00: Pr actic ociated ociated 00 e gastritis Gastritis Bilateral Bilateral Problem Active 2019-11 Donovan raymon cataracts Cataracts 2 Fami ly 00:00: Practic 00 e Chronic Chronic Problem Active 2019-11 [facility] kidney Kidney 2- Family disease Disease 00:00: Practic stage 3 Stage 3 00 e Age Age Problem Active [facility] related Related 6-23 Family 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 Degenerati 00 e on on Essential Essential Problem Active Donovan ennis hypertensi Hypertensi 6-23 Fa cheryl on on 00:00: Practic 00 e Benign Benign Problem Active [facility] prostatic Prostatic 6- Fami ly hyperplasi Hyperplasi 00:00: Pr actic a a 00 e Allergies, Adverse Reactions, Alerts Allergy Allergy Status Severity Reaction(s) Onset Inactive Treating Comm ents Source Name Type Date Date Clinician Codeine Allergy Active Moderate Vomiting [facility] age to to severe Family substanc Practic e e Social History Smoking Status Start Date Stop Date Source Former Smoker [facility] Family P ractice Medications Ordered Filled Start Stop Current Ordering Indication Dosage Frequency Signature Comments Components Source Medication Medication Date Date Medication? Clinician (SIG) Name Name carvedilol carvedilol No 1 BID carvedilol [facility] 12.5 mg 12.5 mg 12.5 mg Family tablet Take tablet Take tablet Practic 1 tablet 1 tablet Take 1 e twice a day twice a day tablet by oral by oral twice a route. route. day by oral route. furosemide furosemide No 1 Q1D furosemide [facility] 20 mg 20 mg 20 mg Family tablet Take tablet Take tablet Practic 1 tablet 1 tablet Take 1 e every day every day tablet by oral by oral every day route. route. by oral route. glimepiride glimepiride No 1 Q1D glimepirid [facility] 4 mg tablet 4 mg tablet e 4 mg Family Take 1 Take 1 tablet Practic tablet tablet Take 1 e every day every day tablet by oral by oral every day route. route. by oral route. losartan 25 losartan 25 No 1 Q1D losartan [place] mg tablet mg tablet 25 mg Fami ly Take 1 Take 1 tablet Practic tablet tablet Take 1 e every day every day tablet by oral by oral every day route. route. by oral route. Immunizations Ordered Immunization Filled Immunization Date Status Commen ts Source Name Name SARS-COV-2 SARS-COV-2 2019-11-10 Completed [facility] (COVID-19) vaccine, (COVID-19) vaccine, 00:00:00 Practice UNSPECIFIED UNSPECIFIED Vital Signs Vital Name Observation Time Observation Value Comments Source BMI (Body Mass 2021-03-19 00:00:00 33.4 kg/m2 [facility]) Practice Body Weight 2021-03-19 00:00:00 207 [lb_av] [facility] Height 2021-03-19 00:00:00 66 [in_i] [facility] BP Diastolic 2020-10-16 00:00:00 78 mm[Hg] [facility] Height 2020-10-16 00:00:00 66 [in_i] [facility] BMI (Body Mass 2020-10-16 00:00:00 32.8 kg/m2 [facility] Practice BP Systolic 2020-10-16 00:00:00 159 mm[Hg] [facility] Body Weight 2020-10-16 00:00:00 203 [lb_av] [facility] Height 2020-08-09 00:00:00 66 [in_i] [facility] BMI (Body Mass 2020-08-09 00:00:00 31.6 kg/m2 [facility]) Practice Body Weight 2020-08-09 00:00:00 196 [lb_av] [facility] Procedures Procedure Date / Time Performing Clinician Source Performed Cholecystectomy [facility] Hernia Repair W/mesh [facility] Esophagogastroduodenoscopy [facility] Screening Colonoscopy [facility] Encounters Start End Encounter Admission Attending Care Care Encounter Source Date/Time Date/Time Type Type Clinicians Facility Department ID 2022-04-26 Outpatient Hahn, Na STLMLC STLMLC [id number] 2 Common 10:58:01 [facility] 2022-01-17 Outpatient Hahn, Na STLMLC STLMLC [id number] 2 Common 11:09:02 [facility] 2021-12-05 Outpatient Hahn, Na STLMLC STLMLC [id number] 2 Common 13:58:24 [facility] 2021-12-05 Outpatient Hahn, Na STLMLC STLMLC [id number] 2 Common 12:24:[id number] [facility] 2021-12-05 Outpatient Hahn, Na STLMLC STLMLC [id number] 2 Common 12:24:13 [facility] 2021-12-05 Outpatient Hahn, Na STLMLC STLMLC [id number] 2 Common 12:22:[id number] [facility] 2021-12-05 Outpatient Hahn, Na STLMLC STLMLC [id number] 2 Common 12:07:[id number] [facility] 2021-12-05 Outpatient Hahn, Na STLMLC STLMLC [id number] 2 Common 12:07:[id number] [facility] 2021-12-05 Outpatient Hahn, Na STLMLC STLMLC [id number] 2 Common 12:02:[id number] [facility] 2021-12-05 Outpatient Hahn, Na STLMLC STLMLC [id number] 2 Common 11:58:23 [facility] 2021-12-05 Outpatient Hahn, Na STLMLC STLMLC [id number] 2 Common 11:58:00 [facility] 2021-12-05 Outpatient Hahn, Na STLMLC STLMLC [id number] 2 Common 11:57:25 [facility] 2021-12-05 Outpatient Hahn, Na STLMLC STLMLC [id number] 2 Common 11:53:[id number] [facility] 2021-12-05 Outpatient Hahn, Luann STLMLC STLMLC [id number] 2 Common 11:52:[id number] [facility] 2021-12-05 Outpatient Selma, Luann STLMLC STLMLC [id number] 2 Common 11:48:[id number] [facility] 2021-12-05 Outpatient STLMLC STLMLC [id number] Common 11:47:[id number] [facility] 2022-06-04 2022-06-04 ambulatory STLMLC STLMLC [id number] Common 00:00:00 00:00:00 [facility] 2022-05-01 2022-05-01 ambulatory STLMLC STLMLC [id number] Common 00:00:00 00:00:00 [facility] 2022-04-30 2022-04-30 ambulatory STLMLC STLMLC [id number] Common 00:00:00 00:00:00 [facility] 2022-02-01 2022-02-01 ambulatory STLMLC STLMLC [id number] Common 00:00:00 00:00:00 [facility] 2022-01-28 2022-01-28 ambulatory STLMLC STLMLC [id number] Common 00:00:00 00:00:00 [facility] 2022-01-18 2022-01-18 ambulatory STLMLC STLMLC [id number] Common 00:00:00 00:00:00 [facility] 2022-01-01 2022-01-01 ambulatory STLMLC STLMLC [id number] Common 00:00:00 00:00:00 [facility] 2021-12-24 2021-12-24 ambulatory STLMLC STLMLC [id number] Common 00:00:00 00:00:00 [facility] 2021-12-21 2021-12-21 ambulatory STLMLC STLMLC [id number] Common 00:00:00 00:00:00 [facility] 2021-12-13 2021-12-13 ambulatory STLMLC STLMLC [id number] Common 00:00:00 00:00:00 [facility] 2021-10-16 2021-10-16 ambulatory STLMLC STLMLC [id number] Common 00:00:00 00:00:00 [facility] 2021-10-02 2021-10-02 ambulatory STLMLC STLMLC [id number] Common 00:00:00 00:00:00 [facility] 2021-09-06 2021-09-06 Outpatient STLMLC STLMLC [id number] Common 00:00:00 00:00:00 [facility] 2021-09-03 2021-09-03 Outpatient STLMLC STLMLC [id number] Common 00:00:00 00:00:00 [facility] 2021-09-03 2021-09-03 ambulatory STLMLC STLMLC [id number] Common 00:00:00 00:00:00 [facility] 2021-08-20 2021-08-20 Outpatient STLMLC STLMLC [id number] Common 00:00:00 00:00:00 [facility] 2021-06-29 2021-06-29 Outpatient STLMLC STLMLC [id number] Common 00:00:00 00:00:00 [facility] 2021-04-12 2021-04-12 Outpatient STLMLC STLMLC [id number] Common 00:00:00 00:00:00 [facility] 2021-04-02 2021-04-02 Outpatient STLMLC STLMLC [id number] Common 00:00:00 00:00:00 [facility] 2021-03-30 2021-03-30 Outpatient STLMLC STLMLC [id number] Common 00:00:00 00:00:00 [facility] 2021-03-22 2021-03-22 Outpatient Ajibade_O_A VFP VFP [id number] [facility] 01:15:00 01:15:00 H [id number] Family Practic e 2021-03-20 2021-03-20 Outpatient Ajibade_O_A VFP VFP [id number] [facility] 12:33:00 12:33:00 H [id number] Family Practic e 2021-03-19 2021-03-19 Outpatient Ajibade_O_A VFP VFP [id number] [facility] 12:31:00 12:31:00 H [id number] Family Practic e 2021-03-19 2021-03-19 [place] VFP [place] - [id number] [facility] 00:00:00 00:00:00 Toma Naylor Famil y LIBRARY ATTENDANT: [id number] Medical - Pract sabine Robles, [email or web address] [address] [place] [address] [place] [address] , Ph. 2021-02-15 2021-02-15 Outpatient STLMLC STLMLC [id number] Common 00:00:00 00:00:00 [facility] 2020-12-04 2020-12-04 Outpatient STLMLC STLC [id number] Common 00:00:00 00:00:00 [facility] 2020-12-01 2020-12-01 Outpatient Ajibade_O_A VFP VFP [id number] [facility] 08:15:00 08:15:00 H [id number] Family Practic e 2020-11-20 2020-11-20 Outpatient Ajibade_O_A VFP VFP [id number] [facility] 11:17:00 11:17:00 H [id number] Family Practic e 2020-10-16 2020-10-16 Outpatient Ajibade_O_A VFP VFP [id number] [facility] 01:37:00 01:37:00 H [id number] Family Practic e 2020-10-16 2020-10-16 [place] VFP [place] - [id number] [facility] 00:00:00 00:00:00 Toma Naylor Famil y LIBRARY ATTENDANT: 9235 Medical - Pract sabine Robles, [email or web address] [address] [place] [address], [facility] [id number] , Ph. 2020-10-03 2020-10-03 Outpatient STLMLC STLMLC [id number] Common 00:00:00 00:00:00 [facility] 2020-09-14 2020-09-14 Outpatient STLMLC STLMLC [id number] Common 00:00:00 00:00:00 [facility] 2020-09-05 2020-09-05 Outpatient Ige-Odunuga VFP VFP [id number] [facility] 04:24:00 04:24:00 _J_AH [id number] Family Practic e 2020-09-01 2020-09-01 Outpatient STLMLC STLMLC [id number] Common 00:00:00 00:00:00 [facility] 2020-08-30 2020-08-30 Outpatient Ige-Odunuga VFP VFP [id number] [facility] 09:11:00 09:11:00 _J_AH [id number] Family Practic e 2020-08-23 2020-08-23 Outpatient STLMLC STLMLC [id number] Common 00:00:00 00:00:00 [facility] 2020-08-18 2020-08-18 Outpatient STLMLC STLMLC [id number] Common 00:00:00 00:00:00 [facility] 2020-08-17 2020-08-17 Outpatient Ige-Odunuga VFP VFP [id number] [facility] 08:54:00 08:54:00 _J_AH [id number] Family Practic e 2020-08-15 2020-08-15 Outpatient Ige-Odunuga VFP VFP [id number] [facility] 08:14:00 08:14:00 _J_AH [id number] Family Practic e 2020-08-14 2020-08-14 Outpatient STLMLC STLMLC [id number] Common 00:00:00 00:00:00 [facility] 2020-08-09 2020-08-09 Brandy VFP [place] - [id number] [facility] 00:00:00 00:00:00 [facility] francisco lópez LIBRARY ATTENDANT: Medical - Practi c [address] [email or web address] [facility], [place] [address], [place] [address] , Ph. 2020-08-04 2020-08-04 Outpatient STLMLC STLMLC [id number] Common 00:00:00 00:00:00 [facility] 2020-07-28 2020-07-28 Outpatient [facility] [id number] Common 00:00:00 00:00:00 [facility] 2019-12-29 2019-12-29 Outpatient Elba-Alberto [facility] [id number] [facility] 07:13:00 07:13:00 _J_AH [id number] Family Practic e 2019-12-29 2019-12-29 Outpatient ElbaAlberto [facility] [id number] 07:13:00 07:13:00 _J_AH 50443 Family Practic e Results Test Description Test Time Test Comments [...] the Main Lab for Analysis. POC Glucose, [id number] 16:20:00 Test Item Value Reference Range Interpretation Comments POC Glucose (test 129 mg/dL 70-115 H If you con docking saw operator your code = POCGLUC) patient crit ically ill, the [place] Accu- Chek InformII meters hould not be used for Glu cose determinations. Draw a venous Glucose and send to the Main Lab for Analysis. POC Glucose, [id number] 11:34:00 Test Item Value Reference Range Interpretation Comments POC Glucose (test 93 mg/dL 70-115 N If you con docking saw operator your code = POCGLUC) patient crit ically ill, the [place] Accu- Chek InformII meters hould not be used for Glu cose determinations. Draw a venous Glucose and send to the Main Lab for Analysis. POC Glucose, [id number] 11:34:00 Test Item Value Reference Range Interpretation Comments POC Glucose (test 162 mg/dL 70-115 H If you con docking saw operator your code = POCGLUC) patient crit ically ill, the [place] Accu- Chek InformII meters hould not be used for Glu cose determinations. Draw a venous Glucose and send to the Main Lab for Analysis. POC Glucose, [id number] 07:48:00 Test Item Value Reference Range Interpretation Comments POC Glucose (test 106 mg/dL 70-115 N If you con docking saw operator your code = POCGLUC) patient crit ically ill, the [place] Accu- Chek InformII meters hould not be used for Glu cose determinations. Draw a venous Glucose and send to the Main Lab for Analysis. POC Glucose, [id number] 05:53:00 Test Item Value Reference Range Interpretation Comments POC Glucose (test 114 mg/dL 70-115 N If you con docking saw operator your code = POCGLUC) patient crit ically ill, the [place] Accu- Chek InformII meters hould not be used for Glu cose determinations. Draw a venous Glucose and send to the Main Lab for Analysis. POC Glucose, [id number] 20:20:00 Test Item Value Reference Range Interpretation Comments POC Glucose (test 123 mg/dL 70-115 H Notify RN or MDIf you code = POCGLUC) consider you r patient critically ill, the [place] Accu-Chek InformII metershould not be used for Glucose determinations. Draw a venous Glucose and send to the Main Lab for Analysis. POC Glucose, [id number] 15:37:00 Test Item Value Reference Range Interpretation Comments POC Glucose (test 102 mg/dL 70-115 N If you con docking saw operator your code = POCGLUC) patient crit ically ill, the [place] Accu- Chek InformII meters hould not be used for Glu cose determinations. Draw a venous Glucose and send to the Main Lab for Analysis. POC Glucose, [id number] 11:41:00 Test Item Value Reference Range Interpretation Comments POC Glucose (test 213 mg/dL 70-115 H Notify RN or MDIf you code = POCGLUC) consider you r patient critically ill, the [place] Accu-Chek InformII metershould not be used for Glucose determinations. Draw a venous Glucose and send to the Main Lab for Analysis. POC Glucose, [id number] 07:35:00 Test Item Value Reference Range Interpretation Comments POC Glucose (test 125 mg/dL 70-115 H If you con docking saw operator your code = POCGLUC) patient crit ically ill, the [place] Accu- Chek InformII meters hould not be used for Glu cose determinations. Draw a venous Glucose and send to the Main Lab for Analysis. Basic Metabolic [id number] 05:52:00 Test Item Value Reference Range Interpretation [...] National Kidney Foundation,http ://nkd ep.nih.gov POC Glucose, [id number] 20:10:00 Test Item Value Reference Range Interpretation Comments POC Glucose (test 117 mg/dL 70-115 H If you con docking saw operator your code = POCGLUC) patient crit ically ill, the [place] Accu- Chek InformII meters hould not be used for Glu cose determinations. Draw a venous Glucose and send to the Main Lab for Analysis. POC Glucose, [id number] 16:18:00 Test Item Value Reference Range Interpretation Comments POC Glucose (test 69 mg/dL 70-115 L If you con docking saw operator your code = POCGLUC) patient crit ically ill, the [place] Accu- Chek InformII meters hould not be used for Glu cose determinations. Draw a venous Glucose and send to the Main Lab for Analysis. POC Glucose, [id number] 12:05:00 Test Item Value Reference Range Interpretation Comments POC Glucose (test 208 mg/dL 70-115 H Notify RN or MDIf you code = POCGLUC) consider you r patient critically ill, the [place] Accu-Chek InformII metershould not be used for Glucose determinations. Draw a venous Glucose and send to the Main Lab for Analysis. Vancomycin, [id number] 10:13:00 Test Item Value Reference Range Interpretation Comments Stephy Ordaz (test code = VANTR) 16.9 ug/mL 10.0-20.0 N Culture, Blood [id number] 08:34:00Specimen: BloodCollected: 02/08/2018 23:30 Status: Final Last Updated: 02/14/2018 08:34 Culture Result (Final) (Final) No Growth After 5 DaysPOC Glucose, [id number] 06:43:00 Test Item Value Reference Range Interpretation Comments POC Glucose (test 161 mg/dL 70-115 H If you con docking saw operator your code = POCGLUC) patient crit ically ill, the [place] Accu- Chek InformII meters hould not be used for Glu cose determinations. Draw a venous Glucose and send to the Main Lab for Analysis. [id number] 06:05:00 Test Item Value Reference Range Interpretation Comments Albumin (test code = ALB) 3.3 g/dL 3.5-5.2 L POC Glucose, [id number] 18:44:00 Test Item Value Reference Range Interpretation Comments POC Glucose (test 220 mg/dL 70-115 H If you con docking saw operator your code = POCGLUC) patient crit ically ill, the [place] Accu- Chek InformII meters hould not be used for Glu cose determinations. Draw a venous Glucose and send to the Main Lab for Analysis. POC Glucose, [id number] 16:25:00 Test Item Value Reference Range Interpretation Comments POC Glucose (test 163 mg/dL 70-115 H If you con docking saw operator your code = POCGLUC) patient crit ically ill, the [place] Accu- Chek InformII meters hould not be used for Glu cose determinations. Draw a venous Glucose and send to the Main Lab for Analysis. XR CHEST 1 [id number] 14:59:07CHEST 1 VIEWCLINICAL INFORMATION: piccCOMPARISON: January 23, 2018FINDINGS:The tip of the right arm PICC projects over the superior cavoatrialjunction. The lungs are well-expanded and clear. The heart size isnormal. The bones are intact.IMPRESSION:No acute cardiopulmonary finding.LOCATION: [id number] Glucose, [id number] 11:32:00 Test Item Value Reference Range Interpretation Comments POC Glucose (test 156 mg/dL 70-115 H If you con docking saw operator your code = POCGLUC) patient crit ically ill, the [place] Accu- Chek InformII meters hould not be used for Glu cose determinations. Draw a venous Glucose and send to the Main Lab for Analysis. Culture, Wound [id number] 09:51:00Specimen: GroinCollected: 02/09/2018 15:00 Status: Final Last [...] >500 Resistant Linezolid (LNZ) 2 Susceptible Penicillin (P) 0.5 Susceptible Streptomycin Syn(HLS)<=1000 Susceptible Vancomycin (VA) 2 SusceptiblePOC Glucose, [id number] 07:47:00 Test Item Value Reference Range Interpretation Comments POC Glucose (test 132 mg/dL 70-115 H If you con docking saw operator your code = POCGLUC) patient crit ically ill, the [place] Accu- Chek InformII meters hould not be used for Glu cose determinations. Draw a venous Glucose and send to the Main Lab for Analysis. CBC with [id number] 07:12:00 Test Item Value Reference Range Interpretation [...] code = ALYMPH) 1.1 K/cumm 0.5-4.6 N Giles Abs (test code = AMONO) 0.7 K/cumm 0.0-1.2 N Eos Abs (test code = AEOS) 0.42 K/cumm 0.00-0.74 N Baso Abs (test code = ABASO) 0.0 K/cumm 0.00-0.21 N POC Glucose, [id number] 18:59:00 Test Item Value Reference Range Interpretation Comments POC Glucose (test 168 mg/dL 70-115 H If you con docking saw operator your code = POCGLUC) patient crit ically ill, the [place] Accu- Chek InformII meters hould not be used for Glu cose determinations. Draw a venous Glucose and send to the Main Lab for Analysis. POC Glucose, [id number] 16:07:00 Test Item Value Reference Range Interpretation Comments POC Glucose (test 88 mg/dL 70-115 N If you con docking saw operator your code = POCGLUC) patient crit ically ill, the [place] Accu- Chek InformII meters hould not be used for Glu cose determinations. Draw a venous Glucose and send to the Main Lab for Analysis. POC Glucose, [id number] 11:32:00 Test Item Value Reference Range Interpretation Comments POC Glucose (test 158 mg/dL 70-115 H If you con docking saw operator your code = POCGLUC) patient crit ically ill, the [place] Accu- Chek InformII meters hould not be used for Glu cose determinations. Draw a venous Glucose and send to the Main Lab for Analysis. Culture, Wound [id number] 09:58:00Specimen: AbdomenCollected: 02/08/2018 23:02 Status: Final Last Updated: 02/12/2018 09:58 Gram Stain(Final) (Final) 02/10/18 No organsims seen, No WBC's seen Culture Result (Final) (Final) 02/11/18 Few Staph-coag negative 02/12/18 Multiple organisms present, no further workup in progress 02/12/18 Anaerobic culture:No anaerobes isolated at 3 days Isolate (Final) (Final) 02/10/18 Few Escherichia coli Amikacin <=16 Susceptible Ampicillin >16 Resistant Ampicillin/Sulb 16/8 Intermediate Cefazolin <=8 Susceptible Cefepime <=4 Susceptible Cefotaxime [...] >500 Resistant Linezolid (LNZ) 2 Susceptible Penicillin (P) 0.5 Susceptible Streptomycin Syn (HLS)<=1000 Susceptible Vancomycin (VA) 4 SusceptiblePOC Glucose, [id number] 07:58:00 Test Item Value Reference Range Interpretation Comments POC Glucose (test 142 mg/dL 70-115 H If you con docking saw operator your code = POCGLUC) patient crit ically ill, the [place] Accu- Chek InformII meters hould not be used for Glu cose determinations. Draw a venous Glucose and send to the Main Lab for Analysis. POC Glucose, [id number] 06:11:00 Test Item Value Reference Range Interpretation Comments POC Glucose (test 152 mg/dL 70-115 H If you con docking saw operator your code = POCGLUC) patient crit ically ill, the [place] Accu- Chek InformII meters hould not be used for Glu cose determinations. Draw a venous Glucose and send to the Main Lab for Analysis. CBC with [id number] 06:01:00 Test Item Value Reference Range Interpretation [...] code = ALYMPH) 1.2 K/cumm 0.5-4.6 N Giles Abs (test code = AMONO) 0.6 K/cumm 0.0-1.2 N Eos Abs (test code = AEOS) 0.54 K/cumm 0.00-0.74 N Baso Abs (test code = ABASO) 0.1 K/cumm 0.00-0.21 N Basic Metabolic [id number] 05:55:00 Test Item Value Reference Range Interpretation [...] National Kidney Foundation,http ://nkd ep.nih.gov POC Glucose, [id number] 00:53:00 Test Item Value Reference Range Interpretation Comments POC Glucose (test 146 mg/dL 70-115 H If you con docking saw operator your code = POCGLUC) patient crit ically ill, the [place] Accu- Chek InformII meters hould not be used for Glu cose determinations. Draw a venous Glucose and send to the Main Lab for Analysis. POC Glucose, [id number] 21:21:00 Test Item Value Reference Range Interpretation Comments POC Glucose (test 209 mg/dL 70-115 H If you con docking saw operator your code = POCGLUC) patient crit ically ill, the [facility] Accu- Chek InformII meters hould not be used for Glu cose determinations. Draw a venous Glucose and send to the Main Lab for Analysis. POC Glucose, [id number] 16:34:00 Test Item Value Reference Range Interpretation Comments POC Glucose (test 199 mg/dL 70-115 H If you con docking saw operator your code = POCGLUC) patient crit ically ill, the [facility] Accu- Chek InformII meters hould not be used for Glu cose determinations. Draw a venous Glucose and send to the Main Lab for Analysis. POC Glucose, [id number] 11:54:00 Test Item Value Reference Range Interpretation Comments POC Glucose (test 190 mg/dL 70-115 H If you con docking saw operator your code = POCGLUC) patient crit ically ill, the [facility] Accu- Chek InformII meters hould not be used for Glu cose determinations. Draw a venous Glucose and send to the Main Lab for Analysis. POC Glucose, [id number] 07:44:00 Test Item Value Reference Range Interpretation Comments POC Glucose (test 217 mg/dL 70-115 H Notify RN or MDIf you code = POCGLUC) consider you r patient critically ill, the [facility] Accu-Chek InformII metershould not be used for Glucose determinations. Draw a venous Glucose and send to the Main Lab for Analysis. Basic Metabolic [id number] 07:23:00 Test Item Value Reference Range Interpretation [...] ars ofage have not been validated by e MDRD study and tiffany d be interpretedwith caution.eGFR Re sult Interpretation: eGFR > or = 60 is in t he Normal RangeeGF R < 60 may mean kidney diseaseeGFR < 1 5 may mean kidney failureRange s recommended by the National Kidney Foundation,http ://nkd ep.nih.gov CBC with [id number] 06:49:00 Test Item Value Reference Range Interpretation [...] code = ALYMPH) 0.9 K/cumm 0.5-4.6 N Giles Abs (test code = AMONO) 0.5 K/cumm 0.0-1.2 N Eos Abs (test code = AEOS) 0.42 K/cumm 0.00-0.74 N Baso Abs (test code = ABASO) 0.1 K/cumm 0.00-0.21 N POC Glucose, [id number] 21:12:00 Test Item Value Reference Range Interpretation Comments POC Glucose (test 209 mg/dL 70-115 H If you con docking saw operator your code = POCGLUC) patient crit ically ill, the [facility] Accu- Chek InformII meters hould not be used for Glu cose determinations. Draw a venous Glucose and send to the Main Lab for Analysis. POC Glucose, [id number] 16:02:00 Test Item Value Reference Range Interpretation Comments POC Glucose (test 138 mg/dL 70-115 H Notify RN or MDIf you code = POCGLUC) consider you r patient critically ill, the [facility] Accu-Chek InformII metershould not be used for Glucose determinations. Draw a venous Glucose and send to the Main Lab for Analysis. Basic Metabolic [id number] 08:50:00 Test Item Value Reference Range Interpretation [...] National Kidney Foundation,http ://nkd ep.nih.gov CBC with [id number] 08:10:00 Test Item Value Reference Range Interpretation [...] code 1.1 K/cumm 0.5-4.6 N = ALYMPH) Giles Abs (test code 0.8 K/cumm 0.0-1.2 N = AMONO) Eos Abs (test code = 0.44 K/cumm 0.00-0.74 N AEOS) Baso Abs (test code 0.0 K/cumm 0.00-0.21 N = ABASO) POC Glucose, [id number] 07:24:00 Test Item Value Reference Range Interpretation Comments POC Glucose (test 153 mg/dL 70-115 H Notify RN or MDIf you code = POCGLUC) consider you r patient critically ill, the [facility] Accu-Chek InformII metershould not be used for Glucose determinations. Draw a venous Glucose and send to the Main Lab for Analysis. POC Glucose, [id number] 20:54:00 Test Item Value Reference Range Interpretation Comments POC Glucose (test 183 mg/dL 70-115 H If you con docking saw operator your code = POCGLUC) patient crit ically ill, the [facility] Accu- Chek InformII meters hould not be used for Glu cose determinations. Draw a venous Glucose and send to the Main Lab for Analysis. POC Glucose, [id number] 16:40:00 Test Item Value Reference Range Interpretation Comments POC Glucose (test 156 mg/dL 70-115 H Notify RN or MDIf you code = POCGLUC) consider you r patient critically ill, the [facility] Accu-Chek InformII metershould not be used for Glucose determinations. Draw a venous Glucose and send to the Main Lab for Analysis. POC Glucose, [id number] 11:18:00 Test Item Value Reference Range Interpretation Comments POC Glucose (test 249 mg/dL 70-115 H Notify RN or MDIf you code = POCGLUC) consider you r patient critically ill, the [facility] Accu-Chek InformII metershould not be used for Glucose determinations. Draw a venous Glucose and send to the Main Lab for Analysis. CBC with [id number] 07:45:00 Test Item Value Reference Range Interpretation [...] code = ALYMPH) 1.0 K/cumm 0.5-4.6 N Giles Abs (test code = AMONO) 1.1 K/cumm 0.0-1.2 N Eos Abs (test code = AEOS) 0.28 K/cumm 0.00-0.74 N Baso Abs (test code = ABASO) 0.0 K/cumm 0.00-0.21 N [id number] 07:17:00 Test Item Value Reference Range Interpretation Comments Phosphorus (test code = PO4) 2.4 mg/dL 2.70-4.50 L Magnesium, [id number] 07:17:00 Test Item Value Reference Range Interpretation Comments Magnesium (test code = MG) 2.0 mg/dL 1.7-2.5 N Basic Metabolic [id number] 07:17:00 Test Item Value Reference Range Interpretation [...] the National Kidney Foundation,http ://nkd ep.nih.gov Vancomycin, [id number] 07:16:00 Test Item Value Reference Range Interpretation Comments Stephy Ordaz (test code = VANTR) 4.8 ug/mL 10.0-20.0 L POC Glucose, [id number] 06:59:00 Test Item Value Reference Range Interpretation Comments POC Glucose (test 181 mg/dL 70-115 H If you con docking saw operator your code = POCGLUC) patient crit ically ill, the [facility] Accu- Chek InformII meters hould not be used for Glu cose determinations. Draw a venous Glucose and send to the Main Lab for Analysis. [id number] 01:58:35AFTER HOURS SERVICE ON: 02/09/2018 1:58 AMCT Scan of the Abdomen and Pelvis With ContrastLocation [id number]: Abdominal wound infectionTechnique: Axial and [facility]. One or more of the following dose reduction techniques were used:Automated exposure control, adjustment of the mA and/or kV according topatient size, and/or utilization of iterative reconstruction technique.Findings: There is a 4 mm right middle lobe pulmonary nodule.A too small to characterize hypodensity is noted in the right hepaticlobe. Gallbladder is absent.There are no peripancreatic inflammatorychanges. A nonspecific small hypodensity is also present in the anteriorspleen.Adrenal glands and kidneys are symmetric. There is no hydronephrosis.There is mildbilateral perinephric stranding which is likely chronic.Bladder is within normal limits.There are significant inflammatory changes and skin thickening along theanterior pelvis wall more pronounced in the region of the left inguinalsoft tissues. There [...] to indicate an abscess. Surgical clips are notedinthe left inguinal canal. There is partial herniation of the sigmoidcolon through the defect involving only the anterior wall. There ismetatarsal level or soft tissue emphysema.Diverticular changes are seen in the sigmoid colon without evidence ofdiverticulitis. The appendix and small bowel are unremarkable.IMPRESSION:1. Extensive edema in the left inguinal soft tissues with a large 9 cminflammatoryphlegmon extending from the skin surface to the inguinalcanal. There is edema and fluid extending through the inguinal canal andinto the scrotal sac.2. Large left hydrocele and varicoceles.3. Possible dehiscence of the left inguinal surgical wound withseparation of the clips.POC Glucose, [id number] 00:40:00 Test Item Value Reference Range Interpretation Comments POC Glucose (test 127 mg/dL 70-115 H If you con docking saw operator your code = POCGLUC) patient crit ically ill, the [facility] Accu- Chek InformII meters hould not be used for Glu cose determinations. Draw a venous Glucose and send to the Main Lab for Analysis. Basic Metabolic [id number] 00:10:00 Test Item Value Reference Range Interpretation [...] validated by th e MDRD study and tiffany d be interpretedwith caution.eGFR Re sult Interpretation: eGFR > or = 60 is in t he Normal RangeeGF R < 60 may mean kidney diseaseeGFR < 1 5 may mean kidney failureRange s recommended by the National Kidney Foundation,http ://nkd ep.nih.gov CBC with [id number] 00:03:00 Test Item Value Reference Range Interpretation [...] code = ALYMPH) 1.0 K/cumm 0.5-4.6 N Giles Abs (test code = AMONO) 1.1 K/cumm 0.0-1.2 N Eos Abs (test code = AEOS) 0.19 K/cumm 0.00-0.74 N Baso Abs (test code = ABASO) 0.0 K/cumm 0.00-0.21 N POC Glucose, [id number] 18:47:00 Test Item Value Reference Range Interpretation Comments POC Glucose (test 196 mg/dL 70-115 H If you con docking saw operator your code = POCGLUC) patient crit ically ill, the [facility] Accu- Chek InformII meters hould not be used for Glu cose determinations. Draw a venous Glucose and send to the Main Lab for Analysis. POC Glucose, [id number] 07:59:00 Test Item Value Reference Range Interpretation Comments POC Glucose (test 157 mg/dL 70-115 H If you con docking saw operator your code = POCGLUC) patient crit ically ill, the [facility] Accu- Chek InformII meters hould not be used for Glu cose determinations. Draw a venous Glucose and send to the Main Lab for Analysis. Comprehensive Metabolic [id number] 12:09:00 Test Item Value Reference Range Interpretation [...] National Kidney Foundation,http ://nkd ep.nih.gov CBC with [id number] 11:50:00 Test Item Value Reference Range Interpretation [...] code = ALYMPH) 1.5 K/cumm 0.5-4.6 N Giles Abs (test code = AMONO) 0.5 K/cumm 0.0-1.2 N Eos Abs (test code = AEOS) 0.54 K/cumm 0.00-0.74 N Baso Abs (test code = ABASO) 0.1 K/cumm 0.00-0.21 N XR CHEST 2V, [id number] 10:18:04PA AND LATERAL CHEST:CLINICAL INFORMATION: K40.30: UNIL INGUINAL HERNIA, W OBST, W/O GANGR,NOT SPCF RECUR COMPARISONS: NoneFINDINGS: The lungs are well-expanded. No airspace consolidation is seen. No pneumothorax or pleural effusion is present. The heart size is normal. There is rounded fullness in both monique. Mild central bronchialthickening is noted. The bones are grossly intact.IMPRESSION:Mild bilateral hilar fullness. The findings either represent prominentpulmonary arteries or hilar lymph nodes. Consider future chest CTfollow-up.Location: R16
--- NOTE | 2022-06-21 12:45 | EDPHYS ---
Physician Documentation [facility] Name: Zack Godinez Age: 72 yrs Sex: Male : 1950 Arrival Date: 06/21/2022 Time: 12:29 Bed Waiting Private MD: Luann Hahn ED Physician Jaspal Sandoval Historical: - Allergies: 06/21 12:39 Codeine; jl7 12:39 [place]; jl7 - PMHx: 12:39 CVA; Diabetes - NIDDM; Hypertension; jl7 - Immunization history:: Client reports receiving the 2nd dose of the Covid vaccine. - Social history:: Smoking status: Patient denies any tobacco usage or history of. Vital Signs: 12:35 Weight 90.72 kg; Height 5 ft. 6 in. (167.64 cm); Pain 7/10; jl7 12:35 Body Mass Index 32.28 (90.72 kg, 167.64 cm) jl7 MDM: 12:43 Patient medically screened. jr11 Administered Medications: No medications were administered Disposition Summary: 06/21/22 12:45 Discharge Ordered Location: Home jr Condition: Stable jr11 Diagnosis - Scalp Laceration/ Open wound of scalp jr11 Followup: jr11 - With: Private Physician - When: 10 - 14 days - Reason: staple removal Discharge Instructions: - Discharge Summary Sheet jr11 - Laceration Care, Adult jr11 Forms: - Medication Reconciliation Form jr11 - Thank You Letter jr11 - Antibiotic Education jr11 - Prescription Opioid Use jr11 Signatures: Mary Cunningham RN RN jl7 Rosillo, Jose, MD MD jr11
--- NOTE | 2022-06-21 12:45 | ER ---
Nurse's Notes [facility] Name: Zack Godinez Age: 72 yrs Sex: Male : 1950 Arrival Date: 06/21/2022 Time: 12:29 Bed Waiting Private MD: Luann Hahn Diagnosis: Scalp Laceration/ Open wound of scalp Presentation: 06/21 12:35 Chief complaint: Patient states: Pipe clamp came undone and a pipe hit on the posterior jl7 scalp. Coronavirus screen: At this time, the client does not indicate any symptoms associated with coronavirus-19. Ebola Screen: No symptoms or risks identified at this time. Complicating Factors: There are no complicating factors for this patient. Initial Sepsis Screen: Does the patient meet any 2 criteria? No. Patient's initial sepsis screen is negative. Does the patient have a suspected source of infection? No. Patient's initial sepsis screen is negative. Risk Assessment: Do you want to hurt yourself or someone else? Patient reports no desire to harm self or others. Onset of symptoms was June 21, 2022. 12:35 Method Of Arrival: Ambulatory 7 12:35 Acuity: COREY 4 jl7 Triage Assessment: 12:39 General: Appears in no apparent distress. uncomfortable, Behavior is calm, cooperative, jl7 appropriate for age. Pain: Complains of pain in KIRK. Injury Description: Laceration sustained to right parietal area is 0.5 to 2.5 cm long, not bleeding, was sustained less than 30 minutes ago. is bleeding no active bleeding noted. Historical: - Allergies: 12:39 Codeine; jl7 12:39 [place]; jl7 - PMHx: 12:39 CVA; Diabetes - NIDDM; Hypertension; jl7 - Immunization history:: Client reports receiving the 2nd dose of the Covid vaccine. - Social history:: Smoking status: Patient denies any tobacco usage or history of. Screenin:41 Abuse screen: Denies threats or abuse. Denies injuries from another. Nutritional jl7 screening: No deficits noted. Tuberculosis screening: No symptoms or risk factors identified. Fall Risk None identified. Assessment: 12:41 Reassessment: ERD in triage assessing pt and discussing POC. jl7 Vital Signs: 12:35 Weight 90.72 kg; Height 5 ft. 6 in. (167.64 cm); Pain 7/10; jl7 12:35 Body Mass Index 32.28 (90.72 kg, 167.64 cm) jl7 ED Course: 12:29 Patient arrived in ED. mr 12:29 Luann Hahn MD is Private Physician. mr 12:39 Triage completed. jl7 12:39 Arm band placed on right wrist. jl7 12:41 Patient has correct armband on for positive identification. jl7 12:41 Assist provider with laceration repair on scalp that was 2.5 cm. or less using aniya. jl7 Set up tray. Performed by Jaspal Sandoval MD Dressed with Neosporin, Patient tolerated well. 12:43 Jaspal Sandoval MD is Attending Physician. jr11 12:52 Patient did not have IV access during this emergency room visit. jl7 Administered Medications: No medications were administered Medication: 12:41 VIS not applicable for this client. jl7 Outcome: 12:45 Discharge ordered by . jr11 12:51 Discharged to home ambulatory. jl7 12:51 Condition: stable 12:51 Discharge instructions given to patient, family, Instructed on discharge instructions, follow up and referral plans. Demonstrated understanding of instructions, follow-up care. 12:52 Patient left the ED. jl7 Signatures: Makenzie Jaimes Mary Cunningham RN RN jl7 Jaspal Sandoval MD MD jr11
== END 2022-06-21 12:52 | disposition home or self-care (01) ==
LOC: ER 12:27
PROC: 0JQ00ZZ Repair Scalp Subcutaneous Tissue and Fascia, Open Approach (ICD-10-PCS; principal; 2022-06-21)
DX: S01.01XA Laceration without foreign body of scalp, initial encounter (principal); I10 Essential (primary) hypertension; Z88.5 Allergy status to narcotic agent
CPT/HCPCS: 99282

== ENCOUNTER 2025-01-23 21:50 | Emergency (ER) | payer OTHER ==
[2025-01-23] MEDS ORDERED: TDAP (DIPHTH,PERTUSS(ACELL),TET VAC) 0.5 ML VIAL IMVAC ONE (22:27)
[2025-01-23 23:09] LABS: Absolute Basophils 0.1 K/uL (0-0.5); Absolute Eosinophils 0.3 K/uL (0-0.5); Absolute Lymphocytes (CBC) 1.8 K/uL (0.7-4.9); Absolute Monocytes 0.9 K/uL (0.1-1.3); Absolute Neutrophil 5.5 K/uL (1.8-8.0); Basophils % 0.9 % (0-1.3); Eosinophils % 3.2 % (0-4.4); Hematocrit 37.7 % (39.6-49.0); Hemoglobin 12.8 g/dL (13.6-17.9); Lymphocytes % 20.7 % (15.3-44.8); MCH 32.6 pg (27.0-35.0); MPV 9.3 fL (7.6-11.3); Monocytes % 10.7 % (3.3-12.3); Neutrophils % 64.5 % (41.7-73.7); Nucleated Red Blood Cells % 0.2 % (0-0); PT Prothrombin Time 11.7 SECONDS (10-13.0); Platelets 143 thou/uL (152-406); Protime INR 1.03; RBC Red Blood Cell Count 3.92 M/uL (4.33-5.43); Red Cell Distribution Width 13.4 % (12.1-15.2)
[2025-01-23 23:17] LABS: Anion Gap 7.7 mEq/L (5.0-15.0); Potassium 3.7 mEq/L (3.5-5.1)
[2025-01-23] MEDS ORDERED: levoFLOXacin 250 MG TAB ONE (23:27)
--- NOTE | 2025-01-23 23:27 | ER ---
Nurse's Notes [facility] Name: Zack Godinez Age: 74 yrs Sex: Male : 1950 Arrival Date: 01/23/2025 Time: 21:50 Bed 5 Private MD: Diagnosis: Foot Laceration/ Open wound of foot-right Presentation: 01/23 22:07 Chief complaint: Patient states: stepped on magan tack around 1200 today and removed lg3 from bottom of shoe. once home this evening took shoe off and it was saturated with blood. puncture wound noted to ball of right foot. denies pain. Coronavirus screen: Client denies travel out of the [place] in the last 14 days. At this time, the client does not indicate any symptoms associated with coronavirus-19. Ebola Screen: No symptoms or risks identified at this time. Initial Sepsis Screen: Does the patient meet any 2 criteria? No. Patient's initial sepsis screen is negative. Does the patient have a suspected source of infection? No. Patient's initial sepsis screen is negative. Risk Assessment: Do you want to hurt yourself or someone else? Patient reports no desire to harm self or others. Onset of symptoms was January 23, 2025. 22:07 Method Of Arrival: Ambulatory lg3 22:07 Acuity: COREY 4 lg3 Triage Assessment: 22:13 General: Appears in no apparent distress. comfortable, Behavior is calm, cooperative. lg3 Pain: Denies pain. EENT: No deficits noted. No signs and/or symptoms were reported regarding the EENT system. Neuro: No deficits noted. Rodriguez Agitation-Sedation Scale (RASS): 0 - Alert and Calm Level of Consciousness is awake, alert, obeys commands, Oriented to person, place, time, situation. Cardiovascular: No deficits noted. Denies chest pain, shortness of breath, Capillary refill < 3 seconds Clubbing of nail beds is absent JVD is absent Patient's skin is warm and dry. Respiratory: No deficits noted. Airway is patent Respiratory effort is even, unlabored, Respiratory pattern is regular, symmetrical. GI: No deficits noted. No signs and/or symptoms were reported involving the gastrointestinal system. : No signs and/or symptoms were reported regarding the genitourinary system. Derm: Skin is intact, is healthy with good turgor, Skin is dry, Skin is normal, Skin temperature is warm Wound noted ball of right foot Denies pain. Musculoskeletal: No deficits noted. No signs and/or symptoms reported regarding the musculoskeletal system. Circulation, motion, and sensation intact. Range of motion: intact in all extremities. Historical: - Allergies: 22:13 Codeine; lg3 22:13 [place]; lg3 - PMHx: 22:13 CVA; Diabetes - NIDDM; Hypertension; lg3 - PSHx: 22:13 prostate (Hypertension); Cholecystectomy; inguinal hernia; spinal; neck; lg3 - Immunization history:: Adult Immunizations up to date, Last tetanus immunization: unknown. - Infectious Disease History:: Denies. - Social history:: Smoking status: Patient denies any tobacco usage or history of. Patient/guardian denies using alcohol, street drugs. Screenin:16 [facility] ED Fall Risk Assessment (Adult) History of falling in the last 3 months, lg3 including since admission No falls in past 3 months (0 pts). [facility] ED Fall Risk Assessment (Adult) Confusion or Disorientation No (0 pts) Intoxicated or Sedated No (0 pts) Impaired Gait No (0 pts) Mobility Assist Device Used No (0 pt) Altered Elimination No (0 pt) Score/Fall Risk Level 0 - 2 = Low Risk Oriented to surroundings, Maintained a safe environment, Educated pt \T\ family on fall prevention, incl call for assistance when getting out of bed, Assessed \T\ reinforced patient's understanding of fall precautions. Abuse screen: Denies threats or abuse. Denies injuries from another. Nutritional screening: No deficits noted. Tuberculosis screening: No symptoms or risk factors identified. Assessment: 22:33 Reassessment: pt declined Xray, provider informed. bm8 22:49 Reassessment: pt's wound cleaned and irrigated with normal saline, dressed with bm8 nonadherent bandage and secured with coban. pt tolerated well. Reassessment: Patient appears in no apparent distress at this time. Patient and/or family updated on plan of care and expected duration. Pain level reassessed. Patient is alert, oriented x 3, equal unlabored respirations, skin warm/dry/pink. Patient denies pain at this time. Patient states symptoms have improved. Pain: Denies pain. 23:37 Reassessment: Patient appears in no apparent distress at this time. Patient and/or bm8 family updated on plan of care and expected duration. Pain level reassessed. Patient is alert, oriented x 3, equal unlabored respirations, skin warm/dry/pink. Patient denies pain at this time. Patient states feeling better. Patient states symptoms have improved. Vital Signs: 22:07 BP 153 / 72; Pulse 77; Resp 16; Temp 97.6(O); Pulse Ox 99% on R/A; Weight 72.57 kg (R); lg3 Height 5 ft. 6 in. (R); Pain 0/10; 22:49 BP 132 / 66; Pulse 58; Resp 18; Temp 97.6; Pulse Ox 100% ; Pain 0/10; bm8 23:29 BP 135 / 66; Pulse 65; Resp 16; Pulse Ox 99% on R/A; dd2 22:07 Body Mass Index 25.82 (72.57 kg, 167.64 cm) lg3 22:07 Pain Scale: Adult lg3 22:49 Pain Scale: Adult bm8 Hema Coma Score: 22:49 Eye Response: spontaneous(4). Motor Response: obeys commands(6). Verbal Response: bm8 oriented(5). Total: 15. 23:37 Eye Response: spontaneous(4). Motor Response: obeys commands(6). Verbal Response: bm8 oriented(5). Total: 15. ED Course: 21:53 Patient arrived in ED. im 21:56 Drew Nazario PA is PHCP. cp 21:56 Blair Phipps MD is Attending Physician. cp 22:13 Triage completed. lg3 22:13 Arm band placed on right wrist. lg3 22:16 Patient has correct armband on for positive identification. Placed in gown. Bed in low lg3 position. Call light in reach. Side rails up X 1. Client placed on continuous cardiac and pulse oximetry monitoring. NIBP monitoring applied. Door closed. Noise minimized. Warm blanket given. Pillow given. 22:32 Caleb Norton, RN is Primary Nurse. bm8 22:32 Initial lab(s) drawn, by me, sent to lab. Inserted saline lock: 20 gauge in right bm8 antecubital area, using aseptic technique. Blood collected. Flushed with 10 mL NS. 22:49 Provided Education on: post er care and wound care. bm8 22:49 No provider procedures requiring assistance completed. Patient maintains SpO2 bm8 saturation greater than 95% on room air. 23:37 IV discontinued, intact, bleeding controlled, No redness/swelling at site. Pressure bm8 dressing applied. Administered Medications: 22:29 Drug: Boostrix Tdap IM 0.5 ml IM once; as a single dose Route: IM; Site: left deltoid; dd2 22:49 Follow up: Response: No adverse reaction bm8 22:59 Follow up: Response: No adverse reaction dd2 23:29 Drug: LevOfloxacin PO 500 mg PO once Route: PO; dd2 23:37 Follow up: Response: Medication administered at discharge. dd2 Medication: 22:30 Vaccine Information Statement (VIS) provided today. Questions and/or concerns dd2 addressed. VIS edition date: June 15, 2021. Outcome: 23:26 Discharge ordered by . cp 23:37 Discharged to home ambulatory, bm8 23:37 Condition: stable 23:37 Discharge instructions given to patient, family, Instructed on discharge instructions, follow up and referral plans. Demonstrated understanding of instructions, follow-up care, Prescriptions given X 1, 23:38 Patient left the ED. bm8 Signatures: Drew Nazario PA PA cp Able, Lacie, RN RN lg3 Jessica Cole Brad, RN RN bm8 LIYA ROMERO RN RN dd2
--- NOTE | 2025-01-23 23:27 | EDPHYS ---
Physician Documentation [facility] Name: Zack Godinez Age: 74 yrs Sex: Male : 1950 Arrival Date: 01/23/2025 Time: 21:50 Bed 5 Private MD: ED Physician Blair Phipps HPI: 01/23 22:25 This 74 yrs old Male presents to ER via Ambulatory with complaints of Puncture cp Wound To Foot - right. 22:25 The patient presents with an injury. cp 22:25 The complaints affect the plantar side of right foot. Context: Patient reports that cp throughout the day today he stepped on multiple roof tacks and had to remove them from the bottom of his shoe. This evening noticed bloody sock after taking shoe off. 22:25 Patient with history of kidney disease and at this time refuses any xrays of right foot.cp Historical: - Allergies: 22:13 Codeine; lg3 22:13 Gantt; lg3 - PMHx: 22:13 CVA; Diabetes - NIDDM; Hypertension; lg3 - PSHx: 22:13 prostate (Hypertension); Cholecystectomy; inguinal hernia; spinal; neck; lg3 - Immunization history:: Adult Immunizations up to date, Last tetanus immunization: unknown. - Infectious Disease History:: Denies. - Social history:: Smoking status: Patient denies any tobacco usage or history of. Patient/guardian denies using alcohol, street drugs. ROS: 22:30 Constitutional: Negative for body aches, chills, fever, poor PO intake, cp 22:30 Neck: Negative for pain with movement, pain at rest, 22:30 Cardiovascular: Negative for chest pain, 22:30 Respiratory: Negative for cough, shortness of breath, wheezing, 22:30 Abdomen/GI: Negative for abdominal pain, vomiting, diarrhea, constipation, 22:30 Back: Negative for pain at rest, pain with movement, 22:30 MS/extremity: Positive for laceration, paresthesias, of the plantar side of right foot, multiple puncture wounds, 22:30 All other systems are negative, Exam: 22:35 Constitutional: The patient appears in no acute distress, alert, awake, cp non-diaphoretic, non-toxic, well developed, well nourished, 22:35 Head/Face: Normocephalic, atraumatic. cp 22:35 Chest/axilla: Inspection: normal, 22:35 Cardiovascular: Rate: normal, 22:35 Respiratory: the patient does not display signs of respiratory distress, Respirations: normal, no use of accessory muscles, no retractions, 22:35 Abdomen/GI: Inspection: abdomen appears normal, 22:35 Back: pain, is absent, ROM is normal, 22:35 Musculoskeletal/extremity: Extremities: noted in the plantar side of right foot: multiple puncture wounds/laceration noted proximal to right great toe with mild bleeding, tenderness to palpation, Perfusion: the extremity is pink, warm, the right foot decreased sensation, Vital Signs: 22:07 BP 153 / 72; Pulse 77; Resp 16; Temp 97.6(O); Pulse Ox 99% on R/A; Weight 72.57 kg (R); lg3 Height 5 ft. 6 in. (R); Pain 0/10; 22:49 BP 132 / 66; Pulse 58; Resp 18; Temp 97.6; Pulse Ox 100% ; Pain 0/10; bm8 23:29 BP 135 / 66; Pulse 65; Resp 16; Pulse Ox 99% on R/A; dd2 22:07 Body Mass Index 25.82 (72.57 kg, 167.64 cm) lg3 22:07 Pain Scale: Adult lg3 22:49 Pain Scale: Adult bm8 Hema Coma Score: 22:49 Eye Response: spontaneous(4). Motor Response: obeys commands(6). Verbal Response: bm8 oriented(5). Total: 15. 23:37 Eye Response: spontaneous(4). Motor Response: obeys commands(6). Verbal Response: bm8 oriented(5). Total: 15. MDM: 21:56 Medical Screening Exam initiated cp 23:25 Data reviewed: vital signs, nurses notes, lab test result(s), and as a result, I will cp discharge patient. 01/23 22:19 Order name: CBC with Diff; Complete Time: 23:20 cp 01/23 23:20 Interpretation: Normal except: RBC 3.92; HGB 12.8; HCT 37.7; PLT 143. cp 01/23 22:19 Order name: BMP; Complete Time: 23:20 cp 01/23 23:20 Interpretation: Normal except: GLUC 115; BUN 21; CRE 1.66; GFR 43. cp 01/23 22:19 Order name: PT-INR; Complete Time: 23:20 cp 01/23 22:20 Order name: Wound Care: clean, irrigate, dress wound; Complete Time: 22:45 cp Administered Medications: 22:29 Drug: Boostrix Tdap IM 0.5 ml IM once; as a single dose Route: IM; Site: left deltoid; dd2 22:49 Follow up: Response: No adverse reaction bm8 22:59 Follow up: Response: No adverse reaction dd2 23:29 Drug: LevOfloxacin PO 500 mg PO once Route: PO; dd2 23:37 Follow up: Response: Medication administered at discharge. dd2 Disposition: 01/24 23:24 Chart complete. cp Disposition Summary: 01/23/25 23:26 Discharge Ordered Notes: Location: Home cp Problem: new cp Symptoms: have improved cp Condition: Stable cp Diagnosis - Foot Laceration/ Open wound of foot - right cp Followup: cp - With: Private Physician - When: 2 - 3 days - Reason: Wound Recheck Discharge Instructions: - Discharge Summary Sheet cp - Nonsutured Laceration Care cp - Puncture Wound cp - Wound Care, Adult cp Forms: - Medication Reconciliation Form cp - Antibiotic Education cp - Prescription Opioid Use cp - Patient Portal Instructions cp - Leadership Thank You Letter cp Prescriptions: - levofloxacin 250 mg Oral tablet - take 1 tablet ORAL route once daily for 7 days start taking evening of cp 01/24/2025; 7 tablet; Refills: 0, Product Selection Permitted Addendum: 01/25/2025 00:17 I was immediately available for consultation during this patient's visit. I did not e c2 personally see the patient or discuss the patient with the ANNAMARIA. . Signatures: Dispatcher [employer] EDMS Drew Nazario PA PA cp Able, Lacie, RN RN lg3 Blair Phipps MD MD ec2 LIYA ROMERO RN RN dd2 Caleb Norton RN bm8 Corrections: (The following items were deleted from the chart) 01/23 22:30 22:20 Foot Right 3 View+[email or web address] ordered. EDPR EDMS 01/24 19:13 19:10 MS/extremity: Positive for laceration, paresthesias, of the plantar side of right cp foot, multiple puncture wounds, cp 19:13 19:10 Constitutional: Negative for body aches, chills, fever, poor PO intake, cp cp 19:13 19:10 Cardiovascular: Negative for chest pain, cp cp 19:13 19:10 Respiratory: Negative for cough, shortness of breath, wheezing, cp cp 19:13 19:10 Abdomen/GI: Negative for abdominal pain, vomiting, diarrhea, constipation, cp cp 19:13 19:10 Back: Negative for pain at rest, pain with movement, cp cp 19: 19:10 Neck: Negative for pain with movement, pain at rest, cp cp 19:13 19:10 All other systems are negative, cp cp 23:24 01/23 22:25 The complaints affect the plantar side of left foot, cp cp 01/24 23:24 01/23 22:25 Patient with history of kidney disease and at this time refuses any xrays cp of left foot. cp
[2025-01-23 23:42] VITALS: TEMP 97.6
[2025-01-23 23:45] VITALS: BP 135/66; O2SAT 99
== END 2025-01-23 23:38 | disposition home or self-care (01) ==
LOC: ER 21:50
DX: S91.311A Laceration without foreign body, right foot, initial encounter (principal)
CPT/HCPCS: 36415; 80048; 85025; 85610; 96372; 99284